=== PATIENT | female | born 1950 | race Caucasian/White ===

== ENCOUNTER 2024-06-24 20:04 | Observation (INO) | payer MEDICARE, SELFPAY ==
--- NOTE | ~2024-06-24 | XR_ITS ---
HISTORY: pain/arthritis; no injury COMPARISON: None TECHNIQUE: 3 views of the right knee were performed. FINDINGS: No acute or subacute fracture. Medial and lateral tibiofemoral joint space narrowing is identified. No suprapatellar joint effusion is identified. The infrapatellar joint space is clear. Fixation hardware within the proximal tibia. Well-corticated density within the expected distribution of the medial collateral ligament. IMPRESSION: Degenerative disease, without acute findings, as detailed above. Reviewed, dictated and finalized at location A.
--- NOTE | ~2024-06-24 | CT_ITS ---
CLINICAL INDICATION: Difficulty with ambulation. COMPARISON: Reference was made to plain film evaluation of the right knee. TECHNIQUE: Computed tomography (CT) of the right knee was performed without intravenous contrast. The dose-length product was 418.51 mGy-cm. FINDINGS/OBSERVATIONS: No acute fracture is appreciated. Significant degenerative disease is redemonstrated with joint space narrowing (medial and lateral tib iofemoral) Screw fixation is identified within the proximal tibia without periprosthetic fracture appreciated. W ell-corticated density within the distribution of the medial collateral ligament is also redemonstrat ed. IMPRESSION: Significant degenerative disease, without acute fracture deformity, as detailed above. Reviewed, dictated and finalized at location A.
--- NOTE | ~2024-06-24 | CT_ITS ---
History: History of CVA Now presents with difficulty with ambulation. PROCEDURE: CT head without contrast. COMPARISON: None TECHNIQUE: Axial imaging of the head performed from the skull base to the vertex without IV contrast. Sagittal a nd coronal reformations obtained. DLP: 605 mGy-cm FINDINGS: Evidence of prior left middle cerebral artery stroke (gliosis and encephalomalacia) with ex vacuo dil atation of the left lateral ventricle. The remainder of the ventricles are otherwise unremarkable in size, shape and position. There is no mass, mass effect or midline shift. There is no abnormal extra-axial fluid collection or intracranial hemorrhage. Visualized paranasal sinuses are clear. The mastoid air cells are well aerated. No acute displaced fractures within the overlying cranium. Impression: No acute intracranial hemorrhage or suspicious mass effect. Reviewed, dictated and finalized at location A. Impression: No acute intracranial hemorrhage or suspicious mass effect.
--- OUTSIDE RECORDS SUMMARY | 2024-06-24 20:07 | XMS_ITS | Clinical Summary ---
Author Organization [facility] Address [address] [address] Care Team Providers Care Personal Assistant Name Role Phone Unavailable Primary Care Provider Unavailabl e Allergies Active Allergy Reactions Criticality Noted Date Comments Lanolin Itching Low 11/26/2020 Penicillins Itching,Rash,Unknown Low 03/15/2011 Reaction: Rash, Sulfa (Sulfonamide Antibiotics) Itching,Rash High 03/15/2011 Reaction: Rash, Sulfur Itching Low 11/26/2020 Medications aspirin (ECOTRIN EC) 81 mg Tablet, Delayed Release (E.C.) Take 1 Tablet (81 mg) by mouth daily. 30 Tablet 2 1 Active simvastatin (ZOCOR) 40 mg tablet TAKE 1 TABLET BY MOUTH EVERY DAY 1 Active cpap medical deviceIndication s:JAN on CPAP New CPAP Setup RESMED CPAP 6-8cm with heated humidity, climateline tubing. Mask fit to comfort All associated CPAP supplies as needed, Please add to Airview. Compliance Download with [facility] in 2 weeks. OLIVE 99 DME Provider Plus Mirage Fx small nasal mask 1 Each 1 Active ketoconazole (NIZORAL) 2 % Shampoo 1 Active phenazopyridine 100 mg tablet 2 Active fluconazole (DIFLUCAN) 150 mg tabletIndication s:Cutaneous candidiasis Take 1 Tablet (150 mg) by mouth every 7 days. 4 Tablet 2 Active Cymbalta 20 mg Capsule, Delayed Release(E.C.)Ind ications:Major depression in remission Take 3 Capsules (60 mg) by mouth daily. 90 Capsule 1 2 Active acetaminophen (TYLENOL) 500 mg tablet Take 3,000 mg by mouth daily. Active baclofen (LIORESAL) 10 mg tablet Take 1 Tablet (10 mg) by mouth 3 times daily. 90 Tablet 2 2 Active clotrimazole-bet amethasone (LOTRISONE) 1-0.05 % CreamIndications :Rash Apply to affected area 2 times daily. 45 Gram 2 Active simvastatin (ZOCOR) 40 mg tablet TAKE 1 TABLET(40 MG) BY MOUTH DAILY 90 Tablet 1 2 Active Cymbalta 20 mg Capsule, Delayed Release(E.C.) Take 1 Capsule (20 mg) by mouth daily. 30 Capsule 2 2 Active Active Problems Patient Care Coordination No te Formatting of this note migh t be different from the original. DME: Provider Plus for CPAP Problem Noted Date Diagnosed Date OAB (overactive bladder) 05/09/2021 Low HDL (under 40) 01/14/2021 Constipation 09/16/2020 Essential hypertension 09/16/2020 Right hemiplegia 09/16/2020 Corneal opacity, central, bilateral 04/15/2020 Overview (09/16/2020): Last Assessment & Plan: Ct care with Dr Pro. Glaucoma suspect of both eyes 04/15/2020 Overview (09/16/2020): Last Assessment & Plan: Order Orozco visual field (HVF) and OCT, Re-eval 6 mos Abnormality of gait due to impairment of balance 01/14/2020 Aphasia following cerebral infarction 11/21/2019 Hemiplegia, dominant side S/ P CVA (cerebrovascular accident) 11/21/2019 Overview (09/16/2020): S/p CVA 2010 History of hemorrhagic cereb rovascular accident (CVA) with residual deficit 10/14/2019 Major depression in remission 10/14/2019 Hyperlipidemia, mixed 10/14/2019 Skin cancer 10/14/2019 S/P vaginal hysterectomy 08/09/2018 Overview (09/16/2020): 09/09/15 total vag hyst with BSO due to complex endometrial hyperplasia History of left mastectomy 01/17/2017 Obstructive sleep apnea syndrome 07/07/2011 Resolved Problems Problem Noted Date Diagnosed Date Resolved Date Prediabetes 09/16/2020 05/11/2021 Depression 07/12/2020 Immunizations Immunization Administration Dates Next Due (PFIZER CHANTELLE)(12 YR UP PRIMA RY SERIES) COVID-19 VACCINE - EMERGENCY USE AUTHORIZATION, MRNA, CHANTELLE(PF) 30 MCG/0.3 ML IM SUSP 04/13/2021 (PFIZER)(12 YR UP) COVID-19 VACCINE - EMERGENCY USE AUTHORIZATION, MRNA, [id number](PF) 30 MCG/0.3 ML IM SUSP 05/10/2020,04/19/2020 (SHINGRIX)(50 YRS UP) ZOSTER VACCINE RECOMBINANT, 0.5 ML, IM 01/23/2020 INFLUENZA VACCINE HIGH DOSE QUADRIVALENT 65 YR UP PF IM 01/13/2021 INFLUENZA VACCINE QUADRIVALENT 6 MOS UP PF IM Influenza Vaccine High Dose 65+ Yrs IM 9 Influenza Vaccine Tri Adjuvanted 65+ PF IM 01/04 Skin Test TB 07/12/2020 Family History Medical History Relation Name Comments Unknown Brother Unknown Father Unknown Mother Unknown Sister Relation Name Status Comments Brother Father Mother Sister Social History Tobacco Use Types Packs/Day Years Used Date Smoking Tobacco: Never Smokeless Tobacco: Never Tobacco Cessation:Counseling Given: No Alcohol Use Standard Drinks/Week Comments Not Currently 0 (1 standard drink = 0.6 oz pur e alcohol) Comments No Sex and Gender Information Value Date Recorded Sex Assigned at Not on file Legal Sex Female 3:32 AM COMPTROLLER Gender Identity Not on file Sexual Orientation Not on file Last Filed Vital Signs Vital Sign Reading Time Taken Comments Blood Pressure 130/70 08/08/2021 1:45 PM CDT Pulse 68 08/08/2021 1:45 PM CDT Temperature 36.8 C (98.2 F) 08/08/2021 1:45 PM CDT Respiratory Rate 18 08/08/2021 1:45 PM CDT Oxygen Saturation 95% 08/08/2021 1:45 PM CDT Inhaled Oxygen Concentration - - Weight 113.4 kg (250 lb) 08/08/2021 1:50 PM CDT Height 170.2 cm (5' 7 ) 08/08/2021 1:50 PM CDT Body Mass Index 39.16 08/08/2021 1:50 PM CDT Plan of Treatment Health Maintenance Due Date Last Done Comments DIABETES ANNUAL FOOT EXAM 10/02/1969 DTAP/TDAP/TD VACCINES (1 - Tdap) 10/02/1970 COLORECTAL SCREENING 10/02/1996 FIT/FOBT Q 1 year 10/02/1996 Flex Sig/CT Colonography Q 5 years 10/02/1996 RSV VACCINE (60+ or ) (1 - Risk 60-74 years 1-dose series) 2011 DIABETES ANNUAL RETINAL EXAM 07/21/2021, 06/14/2020, 06/14/2020, Additional history exists DIABETES HBA1C Q 6 MONTHS 11/06/20212021, 01/13/2021, 09/16/2020 BREAST CANCER SCREENING 11/19/2021 11/20/19 21, 12/11/2019 (Previously completed), 09/02/2019, Additional history exists LDL CHOLESTEROL ANNUAL 01/13/2022 01/13/2021, 2020 DIABETES MICROALBUMIN ANNUAL SCREEN 05/09/2022 05/09/2021, 01/17/2021, 09/16/2020 Colorectal Cancer Screening 06/01/2023 FIT-DNA Q 3 years 06/01/2023 05/31/2020 INFLUENZA VACCINE (#1) 2023 , 01/05/2020, 01/09/2019, Additional history exists COVID-19 Vaccine (2023-2 5 season) 2023 04/13/2021, 05/10/2020, 04/19/2020 PNEUMOCOCCAL VACCINE 50+ YEARS Completed 0 04/22/2019 (Previously completed) ZOSTER VACCINE Completed 03/30/2020 (Prev iously completed), 02/03/2020 (Previously completed), 01/23/2020 OSTEOPOROSIS SCREENING Completed 06/20/2021 Procedures Procedure Name Priority Date/Time Associated Diagnosis Comments XR DEXA BONE DENSITY AXIAL 1 OR MORE SITES Routine 06/20/2021 1:05 PM CDT Menopause POC MICROALB/CREAT RATIO URINE QUANT Routine 05/09/2021 11:22 AM COMPTROLLER Prediabetes POC HEMOGLOBIN A1C Routine 05/09/2021 10 :12 AM COMPTROLLER Prediabetes LIPID PANEL Routine 01/13/2021 11:05 AM CDT Type 2 diabetes mellitus without complication, without long-term current use of insulin ([facility]) Routine general medical examination at a [facility] MAMMO DIAGNOSTIC UNI RIGHT W OR WO CAD Routine 11/19/2020 9:31 AM CDT Lump of right breast Other signs and symptoms in breast HM DIABETES EYE EXAM Routine 06/14/2020 COLON CANCER SCREEN, STOOL DNA Routine 05/31/2020 12:00 AM COMPTROLLER Screening for colon cancer from Last 3 Months or Most Recently Relevant to Health Maintenance Results * XR DEXA BONE DENSITY AXIAL 1 OR MORE SITES (06/20/2021 1:05 PM CDT) Anatomical Region Laterality Modality Computed Radiogr aphy 06/20/2021 1:05 PM CDT Narrative 06/20/2021 1:27 PM CDT SUMMARY DEXA REPORT DATE: 06/20/2021 1:05 PM INDICATION: Postmenopausal FINDINGS: Osteoporosis with lowest T score -2.8. Fracture risk is high. Please refer to the full report available in [facility] under the PACS Images tab. If a faxed copy is needed, please call [phone]. DICTATION LOCATION: [facility] Procedure Note Kaelyn Heath MD - 06/20/2021 SUMMARY DEXA REPORT DATE: 06/20/2021 1:05 PM INDICATION: Postmenopausal FINDINGS: Osteoporosis with lowest T score -2.8. Fracture risk is high. Please refer to the full report available in [facility] under the PACS Images tab. If a faxed copy is needed, please call [phone]. [facility]ATION [facility]ATION: [facility] DIAGNO[facility]IC [facility] ORD ERABLES Final Result * POC MICROALB/CREAT RATIO URINE QUANT (05/09/2021 11:22 AM COMPTROLLER) MICROALBUMIN, URINE POC 10.0 5.0 - 300.0 mg/L [facility] CREATININE, URINE POC 100.0 15.0 - 500.0 mg/dL [facility] MICROALBUMIN/CR EAT RATIO, URINE POC 30.0 1.0 - 2,000.0 mg/g [facility] Urine 05/09/2021 11:[address] [facility] POINT OF CARE TESTING Final Result [facility] [id number] [place] [address] * (ABNORMAL) POC HEMOGLOBIN A1C (05/09/2021 10:12 AM COMPTROLLER) HGB A1C POC 6.4(A) <=5.7 % [facility] Blood, whole 05/09/2021 10:[address] [facility] POINT OF CARE TESTING Final Result [facility] CLIA# [id number] [place] [address] * (ABNORMAL) LIPID PANEL (01/13/2021 11:05 AM CDT) CHOLESTEROL 134 <200 mg/dL [facility] HDL 36(L) > OR = 50 mg/dL [facility] TRIGLYCERIDE 231(H) <150 mg/dL [facility] Comment: If a non-fasting specimen was collected, consider repeat triglyceride testing on a fasting specimen if clinically indicated. Cristal et al. J. of Clin. Lipidol. 2015;9:129-169. LDL CALCULATED 69 mg/dL (calc) [facility] Comment: Reference range: <100 Desirable range <100 mg/dL for primary prevention; <70 mg/dL for patients with CHD or diabetic patients with > or = 2 CHD risk factors. LDL-C is now calculated using the Leon-Escalera calculation, which is a validated novel method providing better accuracy than the Friedewald equation in the estimation of LDL-C. Leon SS et al. NEMO. 2013;310(19): 8621-9540 (http://education.[employer]/faq/QGL826) CHOL/HDL RATIO 3.7 <5.0 (calc) [facility] TOTAL NON-HDL CHOL(LDL+VLDL) 98 <130 mg/dL (calc) [facility] Comment: For patients with diabetes plus 1 major ASCVD risk factor, treating to a non-HDL-C goal of <100 mg/dL (LDL-C of <70 mg/dL) is considered a therapeutic option. Test Performed at: [facility] [address] [place] [address] Twan Goodwin D.O., MPH Blood 01/13/2021 11:0 5 AM CDT 01/13/2021 11:06 AM CDT Milton Aguirre DO CHEMISTRY ORDERABLES F inal Result [facility] [address] [place] [address] * MAMMO DIAGNOSTIC UNI RIGHT W OR WO CAD (11/19/2020 9:31 AM CDT) Anatomical Region Laterality Modality Breast Right Mammography 11/19/2020 9:32 AM CDT Addenda Addendum by Sheila Mckeon MD on 12/01/2020 3:49 PM CDT Comparison is now made with previous films from [facility] dated 09/02/2019 through 07/04/2016. There are no significant interval changes. Recommend annual follow-up. OVERALL FINAL ASSESSMENT: BI-RADS CATEGORY 1: Negative. Narrative 11/19/2020 11:08 AM CDT EXAM: UNILATERAL RIGHT DIAGNOSTIC MAMMOGRAM WITH CAD AND UNILATERAL RIGHT BREAST ULTRASOUND LIMITED 11/19/2020 INDICATION: Palpable lump right breast. History of prior left mastectomy. COMPARISON STUDIES: Prior mammograms are not available but have been performed in [place]. Request has been made to get the prior studies and when available an addendum will be made. PARENCHYMAL COMPOSITION: Heterogeneously dense. Right breast ultrasound shows no mass, cyst or abnormal duct. Only normal tissues are seen. The axilla was scanned and shows some normal lymph nodes. OVERALL FINAL ASSESSMENT: BI-RADS CATEGORY 0: Incomplete: Needs prior mammograms for comparison. DICTATION LOCATION: [facility] Procedure Note Levi Nolasco MD / Sheila Mckeon MD - 11/19/2020 EXAM: UNILATERAL RIGHT DIAGNOSTIC MAMMOGRAM WITH CAD AND UNILATERAL RIGHT BREAST ULTRASOUND LIMITED 11/19/2020 INDICATION: Palpable lump right breast. History of prior left mastectomy. COMPARISON STUDIES: Prior mammograms are not available but have been performed in [place]. Request has been made to get the prior studies and when available an addendum will be made. PARENCHYMAL COMPOSITION: Heterogeneously dense. Right breast ultrasound shows no mass, cyst or abnormal duct. Only normal tissues are seen. The axilla was scanned and shows some normal lymph nodes. OVERALL FINAL ASSESSMENT: BI-RADS CATEGORY 0: Incomplete: Needs prior mammograms for comparison. DICTATION LOCATION: [facility] us Milton Aguirre DO MAMMO ORDERABLES Edite d Result - Final * DIABETES EYE EXAM (06/14/2020) us Cortes Miller MD HEALTH MAINTENANCE Jessika sutton Result [facility]# [id number] [address] [place] [id number] * COLON CANCER SCREEN, STOOL DNA (05/31/2020 12:00 AM COMPTROLLER) COLOGUARD RESULT Negative Not Applicable [facility] Comment: A negative result indicates a low likelihood that a colorectal cancer (CRC) or an advanced adenoma (adenomatous polyps with more advanced pre-malignant features) is present. The chance that a person with a negative Cologuard test has a colorectal cancer is less than 1 in 1500 (negative predictive value >99.9%) or has an advanced adenoma is less than 5.3% (negative predictive value 94.7%). These data are based on a prospective cross-sectional screening study of 10,000 individuals at average risk for colorectal cancer who were screened with both Cologuard and colonoscopy. (Soraida Aguirre et al, N Engl J Med 2014;370(14):4404-1999) The normal value (reference range) for this assay is negative. COLOGUARD RE-SCREENING RECOMMENDATION: Periodic routine colorectal cancer screening is an important part of preventive healthcare for asymptomatic persons at average risk for colorectal cancer. Following a negative Cologuard result, the [place] [employer] Society and U.S. Multi-Society Task Force screening guidelines recommend a Cologuard re-screening interval of 3 years. References: [place] [employer] Society (ACS). Colorectal cancer prevention and early detection. [place], [place]: [place] [employer]; [updated 2015Jul 17]. https://www.cancer.org/cancer/uycgu-pkyhan-ianapr/gxowwkcds-apkbcqitz-nenklpb/ac s-rec ommendations.html. Accessed November 23, 2017; Jasen DK, Keena SANCHEZ, Mona SewellK, Colorectal Cancer Screening: Recommendations for Physicians and Patients from the U.S. Multi-Society Task Force on Colorectal Cancer Screening, Am J Gastroenterology 2017; 112:1666-4881. TEST TYPE: Composite algorithmic analysis of stool DNA-biomarkers with hemoglobin immunoassay. Quantitative values of individual biomarkers are not reportable and are not associated with individual biomarker result reference ranges. PRECAUTIONS AND LIMITATIONS: Cologuard is intended for colorectal cancer screening of adults of either sex, 45 years or older, who are at average-risk for colorectal cancer (CRC). Cologuard has been approved for use by the U.S. FDA. Cologuard may produce a false negative or false positive result. A negative Cologuard test result does not guarantee the absence of CRC or advanced adenoma (pre-cancer). Patients with a negative Cologuard test result should be advised to continue participating in a colorectal cancer screening program. The screening interval for Cologuard is currently recommended at an interval of every 3 years by the [place] [employer] Society and U.S. Multi-Society Task Force. A false positive result occurs when Cologuard produces a positive result, even though a colonoscopy may not find colorectal cancer or precancerous polyps. The performance of Cologuard has been established in a cross sectional study (i.e., single point in time) of average-risk adults aged 50-84. Cologuard performance in patients ages 45 to 49 years was estimated by sub-group analysis of near-age groups. Cologuard performance data in a 10,000 patient pivotal study using colonoscopy as the reference method can be accessed at the following location: www.[employer]/results. Additional description of the Cologuard test process, warnings and precautions can be found at www.cologuardtest.com. Rx only. Stool STOOL SPECIMEN / Unknown 05/31/2020 06/02/2020 4:47 PM COMPTROLLER Sreekanth lFood MD BODY FLUIDS AND STOOLS Edited Result - Final [facility] [place] # [id number] [address] [place] [address] from Last 3 Months or Most Recently Relevant to Health Maintenance Insurance [facility] [place] [id number] [place] [facility] DUAL COMPLETE [facility]
--- OUTSIDE RECORDS SUMMARY | 2024-06-24 20:07 | XMS_ITS | Clinical Summary ---
Author Organization [facility] Address [address] [place] [address] Care Team Providers Care Breaker Engineer Name Role Phone Dequan Uribe MD Primary Care Provider [phone] Source Comments [facility],non-owned Affiliates and Associated Physician Practices is amultiple site organization consisting of ambulatory clinics and hospital sitesin [place], [place], [place] and [place]. This disclosure is being madepursuant to the Care Everywhere program and may not contain all information available regarding this patient. Last updated 17.[facility] Allergies No known active allergies Social History Tobacco Use Types Packs/Day Years Used Date Smoking Tobacco: Never Assessed Sex and Gender Information Value Date Recorded Sex Assigned at Not on file Gender Identity Not on file Sexual Orientation Not on file Plan of Treatment Health Maintenance Due Date Last Done Comments BONE DENSITY TESTING 1950 COLOGUARD (AGES 45-75) - COL ON CA SCREENING 1950 COLON MONITORING 1950 COLONOSCOPY - COLON CA SCREENING 1950 CT COLONOGRAPHY - COLON CA SCREENING 1950 Colorectal Cancer Screening 1950 FIT - COLON CA SCREENING 1950 FLEX SIG - COLON CA SCREENING 1950 LIPID TESTING 1950 MAMMOGRAM 1950 HEPATITIS C SCREENING 09/28/1969 DTAP/TDAP/TD VACCINES (1 - Tdap) 10/02/1970 PNEUMOCOCCAL VACCINE 50+ (1 of 1 - PCV) 10/02/2001 ZOSTER VACCINE (1 of 2) 10/02/2001 COVID-19 VACCINE ( - 2023-2 5 season) 2023 DEPRESSION SCREENING 03/26/2024 INFLUENZA VACCINE (Season Ended) 2024 Respiratory Syncytial Virus (RSV) Vaccine Pt: or over 60 yrs (1 - 1-dose 75+ series) 10/02/2026 HEPATITIS B VACCINE Aged Out No longe r eligible based on patient's age to complete this topic HIB VACCINE Aged Out No longer eligi ble based on patient's age to complete this topic HPV VACCINE Aged Out No longer eligi ble based on patient's age to complete this topic MENINGOCOCCAL (Group B) VACC INE SHARED DECISION-MAKING Aged Out No longer eligibl e based on patient's age to complete this topic MENINGOCOCCAL GROUPS A/C/Y/W VACCINE Aged Out No longer eligible b ased on patient's age to complete this topic Care Teams Breaker Engineer Relationship Specialty Start Date End Date Dequan Uribe MD [address], [address] PCP - General 11/21/07
--- OUTSIDE RECORDS SUMMARY | 2024-06-24 20:07 | XMS_ITS | Encounter Summary ---
Author Organization [facility] Address [address] [place] [address] Care Team Providers Care Washroom Cleaner Name Role Phone Milton Aguirre DO Primary Care Provider Encounter Details Date Type Department Care Team (Latest Contact Info) Description 03/16/2006 Outpatient Historical [facility] Ubaldo Henriquez MD [address] [address] Postmenopausal Bleeding (Primary Dx) Social History Tobacco Use Types Packs/Day Years Used Date Smoking Tobacco: Never Assessed Comments Unknown Sex and Gender Information Value Date Recorded Sex Assigned at Not on file Legal Sex Female 3:32 AM CIGAR PACKER AND SORTER Gender Identity Not on file Sexual Orientation Not on file documented as of this encounter Plan of Treatment Not on file documented as of this encounter Procedures Procedure Name Priority Date/Time Associated Diagnosis Comments POC , URINE Routine 03/16/2006 9:30 AM CIGAR PACKER AND SORTER HEMOGLOBIN AND HEMATOCRIT Routine 03/13/2006 11:25 AM CIGAR PACKER AND SORTER documented in this encounter Results * POC , URINE (03/16/2006 9:30 AM CIGAR PACKER AND SORTER) , URINE POC Negative Negative INTERFACE SYSTEM 03/16/2006 9:30 AM CIGAR PACKER AND SORTER us Ubaldo Henriquez MD POINT OF CARE TESTING Final Anisa laguerre INTERFACE SYSTEM Refer to clinic/hospital department * (ABNORMAL) HEMOGLOBIN AND HEMATOCRIT (03/13/2006 11:25 AM CIGAR PACKER AND SORTER) HEMOGLOBIN 14.8 11.8 - 14.8 g/dL INTERFACE SYSTEM HEMATOCRIT 44.8(H) 35.5 - 44.0 % INTERFACE SYSTEM 03/13/2006 11:2 5 AM CIGAR PACKER AND SORTER Ubaldo Henriquez MD HEMATOLOGY ORDERABLES Final R esult INTERFACE SYSTEM Refer to clinic/hospital department documented in this encounter Visit Diagnoses Diagnosis Postmenopausal bleeding- Primary documented in this encounter Care Teams Washroom Cleaner Relationship Specialty [place] [address] [address] [facility] [address] [place] [address] PCP - General Internal Medicine 06/01/21 02/14/22 documented as of this encounter
--- OUTSIDE RECORDS SUMMARY | 2024-06-24 20:07 | XMS_ITS | Encounter Summary ---
Author Organization [employer] Address [address] [place] [address] Care Team Providers Care Cell Preparer Name Role Phone Milton Aguirre DO Primary Care Provider Encounter Details Date Type Department Care Team (Late st Contact Info) Description 03/21/2002 Outpatient Historical [facility] Raz Crowe MD NO ADDRESS ON FILE RECTAL & ANAL HEMORRHAGE (Primary Dx) Social History Tobacco Use Types Packs/Day Years Used Date Smoking Tobacco: Never Assessed Comments Unknown Sex and Gender Information Value Date Recorded Sex Assigned at Not on file Legal Sex Female 3:32 AM SUPERINTENDENT [employer] Gender Identity Not on file Sexual Orientation Not on file documented as of this encounter Plan of Treatment Not on file documented as of this encounter Visit Diagnoses Diagnosis Hemorrhage of rectum and anus- Primary documented in this encounter Care Teams Cell Preparer Relationship Specialty [place] [address] [address] [facility] [address] [place] [address] PCP - General Internal Medicine 06/01/21 02/14/22 documented as of this encounter
--- OUTSIDE RECORDS SUMMARY | 2024-06-24 20:07 | XMS_ITS ---
Author Organization [facility] Address [address] [facility] [address] [place] [address] Care Team Providers Care Meat Soaker Name Role Phone Ubaldo Pretty Primary Care Provider [phone] Rossana Navarro Unavailable [phone] Allergies Allergen (clinical drug ingredient) Drug/Non Drug Allergy documented on EMR Reaction Allergy Type Onset Date Status Penicillin Other Drug Allergy Active Substance with sulfonamide structure and antibacterial mechanism of action (substance) Sulfa Antibiotics Unknown Drug Allergy Active Reason For Referral Reason 73 yo female with co nfirmed tricompartmental OA of bilateral knee would like to be evaluated for knee replacement,. Diagnosis 1 Tricompartment osteo arthritis of both knees (M17.0) Referral Organization [facility] Referring Provider First Name Rossana Referring Provider Last Name Melanie Referring Provider Speciality Family Med icine Referred Provider undefined Referred Provider Specialty Orthopedic S urgery - Hip & Knee General Notes Ubaldo Pretty 04:54:37 PM >[facility] - referral ID [id number], Target specialist:, Specialty: Orthopedic Surgery - Hip & Knee, Referral information:, Start date: 2024-06-24, End date: 2025-06-24, Number of visits: 3, Diagnosis: , code: M17.0 description: Tricompartment osteoarthritis of both knees, Reason: 73 yo female with confirmed tricompartmental OA of bilateral knee would like to be evaluated for knee replacement,. , Urgency: Routine, Clinical algorithm:, Question: Has the patient with chronic hip or knee pain and evidence of degenerative joint disease had an adequate trial of physical therapy alone or in combination with other conservative measures (Table)? An adequate duration of conservative therapy is at least 6 weeks. Table. Examples of conservative measures Physical therapy plus one or more of the following: Cognitive-behavioral therapy for pain coping or psychological symptoms NSAIDs (Avoid opioids) Exercise: core strengthening, walking, helga chi, stationary cycling, yoga, aquatic exercise Weight management (goal of loss of >=7.5percent of body weight if overweight or obese) Assistive walking device, Response: Yes, Question: Have conservative treatments improved function and/or pain?, Response: No, Question: Mitigate surgical risk factors where present. Consider specialty referral (e.g., physiatry, obesity clinic/bariatric surgery). Consider surgery referral to evaluate surgical candidacy. Referral Priority Routine REASON FOR VISIT Knee injection evaluation Bilateral, Member has had recent b/l xr of knees dated 06/09/2024 Medications Medication SIG (Take, Route, Frequency, Duration) Notes Start Date End Date Status Xarelto 20 MG 1 tablet with food Orally Once a day for 90 days Active Solifenacin Succinate 5 MG 1 tablet Oral ly Once a day for 90 days Active Brimonidine Tartrate-Timolol 0.2-0.5 % 1 drop into affected eye Ophthalmic once a day Active Alendronate Sodium 70 MG 1 tablet 30 min utes before the first food, beverage or medicine of the day with plain water Orally once a week for 30 days 04/23/2024 Not-Taking Acetaminophen 500 MG 2 cap Orally three times daily Active Baclofen 10 MG 1 tablet as needed Orally Twice a day for 90 days As needed for spasms Active Prevagen 10 MG as directed Orally Active Cymbalta 60 MG 1 capsule Orally Onc e a day for 90 days Active Simvastatin 40 MG 1 tablet in the evening Orally Once a day for 90 days Active Problems Problem Type SNOMED Code ICD Code Onset Dates Problem Status W/U Status Risk Notes Problem Osteoarthritis of knee (256873260) Tricompartment osteoarthritis of both knees (M17.0) Active confirmed Problem Shoulder joint pain (121223901) Right shoulder pain, unspecified chronicity (M25.511) Active confirmed Vital Signs Temperature 98.3 degrees Fahrenheit 06/25/19 25 Heart Rate 78 /min 06/24/2024 Blood pressure systolic 126 mm Hg 06/25/19 25 Blood pressure diastolic 70 mm Hg 025 Oximetry 98 % 06/24/2024 Height 68 in 06/24/2024 Weight 249 lbs 06/24/2024 BMI 37.86 kg/m2 06/24/2024 Encounters Encounter Location Date Provider Diagnosis [address] [address] 06/24/2024 Ubaldo Pretty Right shoulder pain, unspecified chronicity M25.511 and Tricompartment osteoarthritis of both knees M17.0 Assessments Encounter Date Diagnosis (ICD Code) Assessment Notes Treatment Notes Treatment Clinical Notes Section Notes 06/24/2024 Right shoulder pain, unspecified chronicity (ICD-10 - M25.511) XRay ordered to assist in facilitating next visit 06/24/2024 Tricompartment osteoarthritis of both knees (ICD-10 - M17.0) Pt with no interest in injections, will place ortho referral to assist in care 06/24/2024 Other A total of 27 minutes was spent on this visit reviewing previous notes, counseling the patient, managing orders, reviewing medications, and documenting findings in the progress note. Plan Of Treatment Pending Test Test Name Order Date X-Ray: Shoulder RT 3 Views 06/24/2024 Referrals Referral Date Details 06/24/2024 06/24/2024, 73 yo fe male with confirmed tricompartmental OA of bilateral knee would like to be evaluated for knee replacement,. Next Appt Details Follow Up: prn, Reason: Provider Name:Rossana Yong waddell, 07/09/2024 01:00:00 PM, [address] [place] [address], [id number], Progress Notes * Nidhi BENOITOB:1950 ([age] yo F)Acc No.[id number]:06/24/2024 Patient: Marjorie JIMENEZ Kristen Provider: Janine Pretty MD :1950 A ge:73 Y S ex:Female Date:06/24/2024 [facility] [facility] Subjective: * Chief Complaints: * 1 . Knee injection evaluation Bilateral. 2. Member has had recent b/l xr of knees dated 06/09/2024. * HPI: . ..: 73-year-old female with confirmed tricompartmental osteoarthritis here for an evaluation for Gelsyn versus steroid -Patient almost immediately states she does not want any injections she just wants to see Ortho for knee replacement -Long discussion with patient and family member regarding risks and benefits of steroids as well as Gelsyn injections as well as pathophysiology of tricompartmental osteoarthritis. Patient states she is not comfortable having things injected into her knees. Patient also states has already had prior procedure into right knee -Patient requesting Ortho referral -At end of visit patient also stating been having right shoulder pain ever since she has had a stroke. States he not have good physical therapy but would like to have imaging of her shoulder to make sure it is not a bony abnormality. Patient has close follow-up with nurse practitioner Ashley will obtain x-ray to help facilitate care. Patient to follow-up at next appointment with primary care team. * ROS: D enies chest pain, shortness of breath. * Medical History: C erebrovascular accident 2010, Skin cancer basal cell carcinoma removed, US 2010 Showed endometrial thickening, Breast cancer T1N0 invasive lobular cancer, Esophagitis on endoscopy in the past. * Medications: T aking Acetaminophen 500 MG Capsule 2 cap Orally three times daily , Taking Prevagen 10 MG Capsule as directed Orally , Taking Cymbalta 60 MG Capsule Delayed Release Particles 1 capsule Orally Once a day , Taking Simvastatin 40 MG Tablet 1 tablet in the evening Orally Once a day , Taking Baclofen 10 MG Tablet 1 tablet as needed Orally Twice a day As needed for spasms, Taking Xarelto 20 MG Tablet 1 tablet with food Orally Once a day , Taking Brimonidine Tartrate-Timolol 0.2-0.5 % Solution 1 drop into affected eye Ophthalmic once a day , Taking Solifenacin Succinate 5 MG Tablet 1 tablet Orally Once a day , Not-Taking Alendronate Sodium 70 MG Tablet 1 tablet 30 minutes before the first food, beverage or medicine of the day with plain water Orally once a week , Medication List reviewed and reconciled with the patient * Allergies: P enicillin: Other, Sulfa Antibiotics. Objective: * Vitals: H ospitalization within last 30 days: no, Temp:98.3F, HR:78/min, BP:126/70mm Hg, Oxygen sat %:98%, Ht: 68 in, Wt:249lbs, BMI:37.86Index, Weight Change: -2 lbs, Weight Change %: -0.8%, Pain scale:5. * Examination: G ENERAL APPEARANCE: Patient appears: A lert awake and oriented. ? M USCULOSKELETAL: P t declines knee exam. Assessment: * Assessment: 1. R ight shoulder pain, unspecified chronicity - M25.511 (Primary) 2 . T ricompartment osteoarthritis of both knees - M17.0 Plan: * Treatment: 2. T ricompartment osteoarthritis of both knees Clinical Notes: Pt with no interest in injections, will place ortho referral to assist in care Referral To:undefined Orthopedic Surgery - Hip & Knee Reason:73 yo female with confirmed tricompartmental OA of bilateral knee would like to be evaluated for knee replacement,. 3. O thers Clinical Notes: A total of 27 minutes was spent on this visit reviewing previous notes, counseling the patient, managing orders, reviewing medications, and documenting findings in the progress note.? * Follow Up: p rn * Billing Information: * Visit Code: 95081 Office Visit- Est Pt.- Level 2. * Procedure Codes: * Electronic signature of Cristo Pretty MD on 06/24/2024 at 08:07 PM CDT Sign off status: Pending * Provider: Janine Pretty MD Date: 0 06/24/2024 Generated for Paulo floyd/William/Kittyitting on: 0 06/24/2024 08:07 PM CDT History and Physical Notes * HPI (History of Present Illness) Category Sub-Category Detail Notes Category Not es ... 73-year-old female with confirmed tricompartmental osteoarthritis here for an evaluation for Gelsyn versus steroid -Patient almost immediately states she does not want any injections she just wants to see Ortho for knee replacement -Long discussion with patient and family member regarding risks and benefits of steroids as well as Gelsyn injections as well as pathophysiology of tricompartmental osteoarthritis. Patient states she is not comfortable having things injected into her knees. Patient also states has already had prior procedure into right knee -Patient requesting Ortho referral -At end of visit patient also stating been having right shoulder pain ever since she has had a stroke. States he not have good physical therapy but would like to have imaging of her shoulder to make sure it is not a bony abnormality. Patient has close follow-up with nurse practitioner Ashley will obtain x-ray to help facilitate care. Patient to follow-up at next appointment with primary care team Examination Category Sub-Category Detail Notes Category Not es GENERAL APPEARANCE Patient appears: Alert awake and or iented MUSCULOSKELETAL Pt declines knee exam Consultation Request Notes Referral Date Referring Provider Referred Provider Not es 06/24/2024 Rossana Navarro , undefined 73 yo fema le with confirmed tricompartmental OA of bilateral knee would like to be evaluated for knee replacement,.
--- OUTSIDE RECORDS SUMMARY | 2024-06-24 20:07 | XMS_ITS | Encounter Summary ---
Author Organization [facility] Healthcare Address [address] [place] [address] Care Team Providers Care Wheat Grower Name Role Phone Sreekanth Flood MD Primary Care Provider [phone] Kalee Slaughter OT Unavailable Unavailable Chhaya Hernandez OT Unavailable UnavailKim Hatch EIGHT ARM OPERATOR Unavailable UnavailJenny Glez OT Unavailable Noemí Deal OT Unavailable UnavailRossana Ni OT Unavailable Unavailable Rossana Navarro PAPERHANGER APPRENTICE Primary Care Pro vider Encounter Details Date Type Department Care Team (Late st Contact Info) Description 06/03/2021 Documentation [facility] Speech Therapy [address] [place] [address] Kim Carmen, LAVELL Social History Tobacco Use Types Packs/Day Years Used Date Smoking Tobacco: Never Alcohol Use Standard Drinks/Week Comments Not Currently 0 (1 standard drink = 0.6 oz pur e alcohol) AUDIT-C Answer Date Recorded Q1: How often do you have a drink containing alc ohol? 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 Gender Identity Not on file Sexual Orientation Not on file Occupation Industry Job Start Date Job End Date Self employed Not on file Not on file Not on file documented as of this encounter Plan of Treatment Not on file documented as of this encounter Visit Diagnoses Not on filedocumented in this encounter Care Teams Wheat Grower Relationship Specialty [place] [id number] [address] PCP - General Internal Medicine 11/13/19 04/08/24 Rossana Navarro NP [address] [place] [address] PCP - General Nurse Practitioner 04/09/24 Kalee Slaughter, OT Occupational Therapist Occupational Therapy 12/23/19 Chhaya Hernandez, OT Occupational Therapist Occupational Therapy 12/31/19 Kim Carmen SLP Speech Language Pathologist Speech Therapy 12/31/19 Jenny Rice, OT Occupational Therapist Occupational Therapy 01/13/20 Noemí Francis, OT Occupational Therapist Occupational Therapy 01/16/20 Rossana Reid OT Occupational Therapist Occupational Therapy 01/22/20 documented as of this encounter
--- OUTSIDE RECORDS SUMMARY | 2024-06-24 20:07 | XMS_ITS | Clinical Summary ---
Author Organization [facility] [place] [address] [place] [address] Care Team Providers Care Chief Lock Operator Name Role Phone Unavailable Primary Care Provider Unavailabl e Allergies Active Allergy Reactions Criticality Noted Date Comments Banana 12/08/2020 Chicken Flavor Unknown 12/08/2020 [place] 12/08/2020 Lanolin Itching,Unknown Medium 07/19/2018 Latex Itching Low 12/08/2020 Penicillins Itching,Rash,Unknown Low 03/15/2011 Reaction: Rash, Reaction: Rash, Sulfa (Sulfonamide Antibiotics) Itching,Rash,Unknown High 03/15/2011 Reaction: Rash, Reaction: Rash, Wheat Flour Unknown 12/08/2020 Yeast, Dried Unknown 12/08/2020 Medications aspirin 81 mg tablet Take 81 mg by mouth 1 (one) time each day. 08/04/19 21 Active baclofen (LIORESAL) 10 mg tablet Take 1 tablet by mouth 3 (three) times a day. 12/16/19 20 Active DULoxetine (Cymbalta) [address] capsule Take 60 mg by mouth 1 (one) time each day. 06/02/19 21 Active incobotulinumtoxin A (XEOMIN) 100 Units recon soln Inject into the shoulder, thigh, or buttocks every 3 months. 09/23/19 21 Active simvastatin (ZOCOR) 40 mg tablet simvastatin 40 mg tablet TAKE 1 TABLET BY MOUTH EVERY DAY 11/26/19 21 Active varicella-zoster gE-AS01B, PF, (Shingrix, PF,) 50 mcg/0.5 mL suspension for reconstitution Shingrix (PF) 50 mcg/0.5 mL intramuscular suspension, kit ADMINISTER 0.5ML IN THE MUSCLE DIRECTED Active Active Problems Problem Noted Date Diagnosed Date Constipation 09/16/2020 Diabetes mellitus 09/16/2020 Essential hypertension 09/16/2020 Right hemiplegia 09/16/2020 Overview (12/08/2020): S/p CVA 2010 Corneal opacity, central, bilateral 04/15/2020 Overview (12/08/2020): Last Assessment & Plan: Ct care with Dr Pro. Last Assessment & Plan: Ct care with Dr Pro. Glaucoma suspect of both eyes 04/15/2020 Overview (12/08/2020): Last Assessment & Plan: Order Orozco visual field (HVF) and OCT, Re-eval 6 mos Last Assessment & Plan: Order Orozco visual field (HVF) and OCT, Re-eval 6 mos Pseudophakia of both eyes 04/15/2020 Overview (12/08/2020): Last Assessment & Plan: Stable. Monitor. Subjective vision disturbance, bilateral 021 Overview (12/08/2020): Last Assessment & Plan: Ct care with Dr Pro and Dr Ramírez. Abnormality of gait due to impairment of balance 01/14/2020 Muscle spasticity 01/14/2020 Overview (12/08/2020): Last Assessment & Plan: The patient has spastic hemiplegia due to stroke which has responded well to botox injections previously but not at the last round of injections. The benefit of injections has now decreased, and it is reasonable to repeat botox injections at this time. The risks and benefits of botox injections were discussed with the patient and they wish to proceed. A procedure consent was signed. Medications Given: Botulinum toxin injected, quantities listed below. Botulinum toxin (Xeomin) was injected into the following muscles using EMG guidance: Medications Given: 270 U (amount wasted: 30U) injected with EMG guidance into the following muscles using a 1 ml dilution: 40U Biceps Brachii (right) 40U Brachioradialis (right) 40U Flexor Carpi Radialis (right) 40U Flexor Carpi Ulnaris (right) 80U Flexor Digitorum Superficialis (right) 20U Pronator Teres (right) 10U Adductor policis (right) Right arm weakness 01/14/2020 Aphasia following cerebral infarction 11/21/2019 History of hemorrhagic cereb rovascular accident (CVA) with residual deficit 10/14/2019 Hyperlipidemia, mixed 10/14/2019 Major depression in remission 10/14/2019 Skin cancer 10/14/2019 S/P vaginal hysterectomy 08/09/2018 Overview (12/08/2020): 09/09/15 total vag hyst with BSO due to complex endometrial hyperplasia 09/09/15 total vag hyst with BSO due to complex endometrial hyperplasia History of left mastectomy 01/17/2017 Obstructive sleep apnea syndrome 07/07/2011 Social History Tobacco Use Types Packs/Day Years Used Date Smoking Tobacco: Never Assessed Comments Unknown Sex and Gender Information Value Date Recorded Sex Assigned at Not on file Legal Sex Female 3:05 PM PDT Gender Identity Other 12/07/2020 2:31 PM PDT Sexual Orientation Not on file Plan of Treatment Health Maintenance Due Date Last Done Comments Meningococcal B Vaccine Aged Out No l onger eligible based on patient's age to complete this topic
--- OUTSIDE RECORDS SUMMARY | 2024-06-24 20:07 | XMS_ITS | Clinical Summary ---
Author Organization [facility] Address [address] [place] [address] Care Team Providers Care Wire Products Inspector Name Role Phone Kalee Slaughter OT Unavailable Unavailable Chhaya Hernandez OT Unavailable UnavailKim Hatch SNUFF GRINDER Unavailable UnavailJenny Glez OT Unavailable Noemí Deal OT Unavailable UnavailRossana Ni OT Unavailable Unavailable Rossana Navarro MARKING CLERK Primary Care Pro vider Allergies Active Allergy Reactions Criticality Noted Date Comments Banana Lanolin Unknown,Itching Low Latex Itching Low Penicillins Rash,Itching,Unknown Low 03/15/2011 Reaction: Rash, Solanum- Nightshade Vegetables Nausea & Vomiting Low 05/09/2024 Sulfa Itching Low 11/26/2020 Sulfa (Sulfonamide Antibiotics) Rash,Unknown,Itching Low 03/15/2011 Reaction: Rash, Tomato Nausea & Vomiting Low 05/09/2024 Raw tomato Medications simvastatin (ZOCOR) 40 mg tablet Take 0.5 tablets (20 mg total) by mouth daily Active baclofen (LIORESAL) 10 mg tablet TK 1 T PO TID [address] (CYMBALTA) 30 mg capsule Take 2 capsules (60 mg total) by mouth daily Cannot have generic must have brand only, takes 60 mg in winter and 20 mg in summer 1 Active acetaminophen (TYLENOL) 500 mg tabletIndicatio ns:Stroke Take 6 tablets (3,000 mg total) by mouth daily Active Nystop powder 2 Active Xarelto 20 mg tablet Take 1 tablet (20 mg total) by mouth daily 5 Active UNABLE TO FIND Med Name: prevagen Active omega-3 fatty acids (LOVAZA) 1 gram capsule Take 1 capsule (1 g total) by mouth daily Active fluorometholone (FML) 0.1 % ophthalmic suspension Administer 1 drop into the left eye daily 15 mL 3 5 Active Hospital, Clinic, or Other Facility Administered Medication Ordered Dose Route Frequency Start Date End Date Status incobotulinumtoxinA (XEOMIN) 100 unit injection [place]Indications[place] [place] 270 Units IM Once for Clinic-Administere d Medication 09/27/2021 Active Active Problems Problem Noted Date Diagnosed Date Seizures 07/28/2021 Chronic pain of left knee 06/28/2021 Osteoarthritis of left knee 06/28/2021 OAB (overactive bladder) 05/09/2021 Low HDL (under 40) 01/14/2021 Right hemiplegia 09/16/2020 Overview (07/28/2021): S/p CVA 2011 Essential hypertension 09/16/2020 Corneal opacity, central, bilateral 04/15/2020 Assessment & Plan (07/21/2020 11:00 AM CDT): Ct care with Dr Pro. Assessment & Plan (04/15/2020 11:50 AM LICENSE INSPECTOR): Recommend corneal consult. Dr Faustin examined today also and recommended ena drops (gtts) ou ( tid-qid) Subjective vision disturbance, bilateral 021 Assessment & Plan (07/21/2020 10:59 AM CDT): Ct care with Dr Pro and Dr Ramírez. Assessment & Plan (04/15/2020 11:27 AM LICENSE INSPECTOR): Discussed findings. Recommend corneal consult 1st, but pt reports letters look fragmented ever since stroke. May need neuro-op consult if no improvement (NI) after corneal eval/tx. Pseudophakia of both eyes 04/15/2020 Assessment & Plan (07/21/2020 10:59 AM CDT): Stable. Monitor. Assessment & Plan (04/15/2020 11:26 AM LICENSE INSPECTOR): Stable. Monitor. Glaucoma suspect of both eyes 04/15/2020 Assessment & Plan (07/21/2020 10:59 AM CDT): Order Orozco visual field (HVF) and OCT, Re-eval 6 mos Assessment & Plan (04/15/2020 11:39 AM LICENSE INSPECTOR): Schedule Orozco visual field (HVF), repeat intraocular pressure (IOP), and OCT ONH in near future. 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 She ambulates with a cane and requires an AFO to maintain her foot in a position suitable for continued ambulation and prevent excess plantarflexion. She does not have knee instability. This condition will continue indefinitely and require ongoing treatment. She has used an AFO previously with success, however her old AFO appears to no longer fit her. A prefabricated brace was considered but this will be inadequate due to the tonic abnormal position of her foot. A right custom AFO was thus ordered for the patient. After consultation with PT, we determined the following: Patient has trace DF and mild Clonus with an R1 of -15 and an R2 of -8. Patient is currently in a solid ankle afo that is set in PF and too large for her due to weight change. Patient is able to ambulate a distance of greater than 75 feet with assistance of brace. The solid AFO will be used to prevent dorsiflexion and plantarflexion in the Sagittal plane and give full triplanar support. The rigidity will also prevent coronal and limit transverse plane motion. The Carbon reinforced ankle is used to increase strength without increasing weight. The calf liner will help decrease pressure and skin irritation. Gej-frb-kahzi cannot be used due to potential for skin breakdown and the duration of need being greater than 6 months. The patient has spastic hemiplegia due to stroke which has responded well to botox injections. The benefit of injections has now [...] Pronator Teres (right) 10U Adductor policis (right) Assessment & Plan (03/30/2021 7:37 PM LICENSE INSPECTOR): The patient has spastic hemiplegia due to stroke which has responded well to botox injections. The benefit of injections has now [...] Pronator Teres (right) 10U Adductor policis (right) Assessment & Plan (12/29/2020 12:27 PM CDT): The patient has spastic hemiplegia due to [...] Pronator Teres (right) 10U Adductor policis (right) Assessment & Plan (09/22/2020 11:49 AM CDT): The patient has spastic hemiplegia due to [...] Pronator Teres (right) 10U Adductor policis (right) Assessment & Plan (06/23/2020 10:36 AM CDT): The patient has spastic hemiplegia due to stroke which has responded well to botox injections. The benefit of injections has now decreased, and it is reasonable to repeat botox injections at this time. The risks and benefits of botox injections were discussed with the patient and they wish to proceed. A procedure consent was signed. Medications Given: Botulinum toxin injected, quantities listed below. 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 I counseled her that botulinum should help her tight muscles relax and may facilitate that arm's movements from that perspective. It would not make muscles stronger that are currently weak, however. I also do not think it would be helpful for her gait, as her brace currently appears effective for restoring her foot to a normal position and most of her gait abnormality appears driven by weakness, not spasticity. She will watch for any side effects including infection, bleeding or excessive weakness. I explained these to her as well as the expected benefit and she wishes to proceed. Botulinum toxin (Xeomin) was injected into the following muscles using EMG guidance: Medications Given: 120 U (amount wasted: 80 U) injected with EMG guidance into the following muscles using a 1 ml dilution: 20U Biceps Brachii (right) 20U Brachioradialis (right) 20U Flexor Carpi Radialis (right) 20U Flexor Carpi Ulnaris (right) 10U Flexor Digitorum Profundus (right) 10U Flexor Digitorum Superficialis (right) 20U Pronator Teres (right) Aphasia following cerebral infarction 11/21/2019 Hyperlipidemia, mixed 10/14/2019 Depressive disorder 12/06/2018 Cerebrovascular accident (CVA) 12/06/2018 Type 2 diabetes mellitus without complication S/P vaginal hysterectomy 08/09/2018 Overview (07/28/2021): 09/09/15 total vag hyst with BSO due to complex endometrial hyperplasia 09/09/15 total vag hyst with BSO due to complex endometrial hyperplasia Chronic low back pain 06/05/2018 History of left mastectomy 01/17/2017 Obstructive sleep apnea syndrome 07/07/2011 Resolved Problems Problem Noted Date Diagnosed Date Resolved Date Hyperlipidemia 07/07/2011 11/21/2019 Encounters Date Type Department Care Team Description 05/19/2024 Results Follow-Up [facility] Cardiology [facility] Office [facility] [address] [place] [id number] Angie Avitia MD 05/16/2024 10:00 AM LICENSE INSPECTOR Office Visit [facility] Ophthalmology [address] [facility] 6th [place] [address] Giovanna Hinojosa MD Fuchs' corneal dystrophy of both eyes (Primary Dx); Pseudophakia of both eyes; Cornea transplant recipient; Early dry stage nonexudative age-related macular degeneration of both eyes 05/16/[address] [facility] Cardiology [facility] 8th [place] [address] [place] [phone] Kristen Cabrera 05/15/2024 11:30 AM LICENSE INSPECTOR Ancillary Procedure [facility] [address] [facility] [address] [place] [phone] Pulmonary embolism, unspecified chronicity, unspecified pulmonary embolism type, unspecified whether acute cor pulmonale present (HCC) 05/09/2024 11:30 AM LICENSE INSPECTOR Office Visit [facility] Cardiology [address] [facility] [address] [place] [address] Angie Avitia MD Other pulmonary embolism without acute cor pulmonale, unspecified chronicity (HCC) (Primary Dx); DVT (deep venous thrombosis) (HCC); Hyperlipidemia, unspecified hyperlipidemia type; Pulmonary embolism, unspecified chronicity, unspecified pulmonary embolism type, unspecified whether acute cor pulmonale present (HCC) 04/29/[address] [facility] Cardiology [address] [facility] 8th [place] [address] [place] [phone] Gauri Manuel 04/22/[address] [facility] Ophthalmology [address] [place] [address] Giovanna Hinojosa MD new pt scheduled from Last 3 Months Immunizations Immunization Administration Dates Next Due Influenza, Quadrivalent, Spl it, Preservative Free, Intramuscular 01/05/2020 Surgical History Surgery Date Site/Laterality Comments IR FINE NEEDLE ASPIRATION W IMAGE GUIDANCE 07/30/2015 N/A OOPHORECTOMY 03/26/2012 - 03/25/2013 Left MASTECTOMY 03/26/2011 - 03/25/2012 Left CATARACT EXTRACTION Bilateral CORNEAL TRANSPLANT 09/24/2023 - 10/24/2023 Left Medical History Medical History Date Comments Stroke (cerebrum) (HCC) 2010 Cancer (HCC) skin Asthma Diabetes mellitus (HCC) Hypertension Family History Medical History Relation Name Comments Melanoma Father Family history of malignant melanoma - (Added by TW Conv)/Family history of malignant melanoma - (Added by TW Conv) Leukemia Mother Epilepsy Neg Hx Relation Name Status Comments Father Mother Social History Tobacco Use Types Packs/Day Years Used Date Smoking Tobacco: Never Smokeless Tobacco: Never Tobacco Cessation:Counseling Given: Not Answered Alcohol Use Standard Drinks/Week Comments Not Currently 0 (1 standard drink = 0.6 oz pur e alcohol) AUDIT-C Answer Date Recorded Q1: How often do you have a drink containing alc ohol? Monthly or less 07/28/2021 Q2: How many drinks containi ng alcohol do you have on a typical day when you are drinking? 1 or 2 07/28/2021 Frequency of Binge Drinking Not on file 07/2021 Comments No Sex and Gender Information Value Date Recorded Sex Assigned at Not on file Legal Sex Female 12:45 AM LICENSE INSPECTOR Gender Identity Not on file Sexual Orientation Not on file Occupation Industry Job Start Date Job End Date Unemployed Not on file Not on file Not on file Obstetrics History Para Term AB IAB SAB Ectopic Multiple Livin g Live Births 0 0 0 0 0 0 0 0 0 0 0 Last Filed Vital Signs Vital Sign Reading Time Taken Comments Blood Pressure 108/74 05/09/2024 11:30 AM LICENSE INSPECTOR Pulse 62 05/09/2024 11:30 AM LICENSE INSPECTOR Temperature 35.4 C (95.7 F) 07/28/2021 12:43 PM CDT Respiratory Rate 17 07/19/2021 1:53 PM CDT Oxygen Saturation 96% 05/09/2024 11:30 AM LICENSE INSPECTOR Inhaled Oxygen Concentration - - Weight 113.4 kg (250 lb) 05/09/2024 11:30 AM LICENSE INSPECTOR Height 167.6 cm (5' 6 ) 05/09/2024 11:30 AM LICENSE INSPECTOR Body Mass Index 40.35 05/09/2024 11:30 AM LICENSE INSPECTOR Plan of Treatment Health Maintenance Due Date Last Done Comments Albumin Creatinine Ratio, Urine 1950 Depression Screening 1950 Hepatitis C Screening 1950 Foot Exam 1950 DTaP/Tdap/Td Vaccine (1 - Tdap) 10/02/1962 Hepatitis B Screening 10/02/1969 Pneumococcal vaccine 65+ (1 of 2 - PCV) 10/02/1970 Lipid Panel 09/08/2016 09/09/2015, 01/11/2014 eGFR 06/15/2017 06/15/2016 Breast Cancer Screening-Mammogram 07/04/2017 07/04/2016, 07/15/2015, 07/15/2015 Well Visit 65+ 01/14/2021 01/15/2020 Hemoglobin A1C 03/18/2021 09/16/2020 Fall Risk Assessment 07/19/2022 07/19/2021 Osteoporosis Screening-Bone Density Scan 06/21/2023 06/20/2021, 06/20/2021 Covid-19 Vaccine (3 - 2023-2 5 season) 2023 05/10/2020, 04/19/2020 Dilated Eye Exam 05/16/2025 05/16/2024, 04/15/2020 Colon Cancer Screening-Colonoscopy 07/29/2025 07/30/2015 Colon Cancer Screening-CT Colonography Discontinued 07/30/2015 Colon Cancer Screening-DNA Stool Discontinued 07/30/19 Colon Cancer Screening-FIT Discontinued 07/30/2015 Colon Cancer Screening-Sigmoidoscopy Discontinued 07/30/2015 Zoster Vaccine Completed 09/14/2022, 01/0 06/2020, 01/23/2020 Influenza Vaccine Completed 01/09/2024, , 01/09/2019, Additional history exists Goals Goal Patient Goal Type Associated Problems Recent Progress Patient-Stated? Author CCM Chronic Pain Care Plan Chronic Care Management Christa Hawkins, RN Note: Problem: Chronic Pain Goals: 1. Minimize further functional decline 2. Maximize quality of life 3. Control pain Strategies: - Activity/exercise program recommendation - Conservative stepwise pain medicine strategy with multi-disciplinary approach - Recommend healthy lifestyle strategies and compensatory methods as needed Procedures Procedure Name Priority Date/Time Associated Diagnosis Comments OCT, RETINA - OU - BOTH EYES Routine 05/16/2024 11:37 AM LICENSE INSPECTOR Fuchs' corneal dystrophy of both eyes Early dry stage nonexudative age-related macular degeneration of both eyes TRANSTHORACIC ECHO (TTE) COMPLETE W DOPPLER/CF W CONTRAST Routine 05/15/2024 12:30 PM LICENSE INSPECTOR Pulmonary embolism, unspecified chronicity, unspecified pulmonary embolism type, unspecified whether acute cor pulmonale present (HCC) SCREENING MAMMOGRAM Routine 07/04/2016 7 :41 PM CDT EGFR Routine 06/15/2016 5:59 PM CDT SERUM LIPID PANEL Routine 09/09/2015 11: 42 PM CDT COLONOSCOPY REPORT 07/30/2015 from Last 3 Months or Most Recently Relevant to Health Maintenance Results * OCT, Retina - OU - Both Eyes (05/16/2024 11:37 AM LICENSE INSPECTOR) Anatomical Region Laterality Modality Head Optical Coherenc e Tomography Narrative 05/16/2024 11:37 AM LICENSE INSPECTOR Maryam ou No cme us Giovanna Hinojosa MD OPHTH TOMOGRAPHY Final Resu lt * TRANSTHORACIC ECHO (TTE) COMPLETE W DOPPLER/CF W CONTRAST (05/15/2024 12:30 PM LICENSE INSPECTOR) Anatomical Region Laterality Modality Ultrasound 05/15/2024 11:3 9 AM LICENSE INSPECTOR Narrative 05/19/2024 3:51 PM LICENSE INSPECTOR [facility] Cardiac Diagnostic Lab [address], [address] [place] [address] Transthoracic Echocardiographic Report Patient Name: KRISTEN BOURGEOIS R : 1950 (73y 7m) Gender: F Study Date: 05/15/2024 11:39:28 AM Ht(Inch): 66 Wt(Lb): 250 BSA: 2.3 Communications Technologist: PATRICIO Bee Location: [facility] Order Provider: ANGIE AVITIA Heart Rate: 68 BMI: 40.35 BP: 100/54 Quality: The study images were of technically good quality. Ref Provider: ANGIE AVITIA PROCEDURES: Echocardiographic Report: [id number], [id number]) Transthoracic complete echo with strain imaging and contrast, 2D, spectral and tissue Doppler, color flow Doppler, M-mode. Contrast: Contrast Enhancement was Employed: After initial imaging due to sub- optimal quality related to co-morbidity defined by patient's body habitus. 0.4 ml Optison Administered, (2.6 ml wasted). INDICATIONS: I26.99 Other pulmonary embolism without acute cor pulmonale. FINDINGS: Left Ventricle: Normal left ventricular size based on volume index. Concentric LV remodeling. There is hyperdynamic left ventricular systolic function. The Ejection Fraction (Thomas's) is measured at 77 %. Left ventricular diastolic parameters are consistent with Grade I diastolic dysfunction (normal LA pressure). The average global longitudinal strain rate is normal. The LV global strain is: -21.1 %. Right Ventricle: Normal right ventricular size. Normal right ventricular systolic function. Left Atrium: The left atrium is normal in size. Right Atrium: The right atrium is normal in size. Mitral Valve: Normal mitral valve leaflet structure. No mitral regurgitation seen. No stenosis present. Aortic Valve: Trileaflet aortic valve. No aortic regurgitation seen. No aortic valve stenosis. The mean transaortic gradient is 3.72 mmHg. The aortic valve area by the continuity equation (using VTI) is 2.61 cm2. Tricuspid Valve: The tricuspid valve demonstrates normal leaflet structure. No tricuspid regurgitation seen. PASP cannot be evaluated due to lack of adequate TR jet. No tricuspid valve stenosis. Pulmonic Valve: The pulmonic valve demonstrates normal leaflet structure. No evidence of pulmonic regurgitation. No pulmonic valve stenosis present. Pericardium: Normal pericardium without evidence of pericardial effusion. Aorta: The aortic root is normal in size. The aortic root is normal in size when indexed. The ascending aorta is normal in size when indexed. IVC: The IVC (inferior vena cava) was <2.1 cm and collapsibility >50%. CONCLUSIONS: 1. Normal 2D/Doppler echocardiographic study with normal left ventricular function and no significant valvular abnormalities. 2. Concentric LV remodeling. There is hyperdynamic left ventricular systolic function. The Ejection Fraction (Thomas's) is measured at 77 %. Left ventricular diastolic parameters are consistent with Grade I diastolic dysfunction (normal LA pressure). The average global longitudinal strain rate is normal. 3. Normal right ventricular size. Normal right ventricular systolic function. MEASUREMENTS: 2D/MM Value Range Doppler Value Range LVIDd 2D 4.54 cm [ 3.80 - 5.20 ] AV Peak Jasen 1.30 m/s [ 1.00 - 1.70 ] LVIDs 2D 2.47 cm [ 2.20 - 3.50 ] AV Peak PG 6.76 IVSd 2D 0.74 cm [ 0.60 - 0.90 ] AV Mean PG 3.72 mmHg LVPWd 2D 0.99 cm [ 0.60 - 0.90 ] AV VTI 31.66 cm LV Thickness Ratio 0.75 LVOT Peak Jasen 0.99 m/s [ 0.70 - 1.10 ] LV FS 2D 45.54 % [ 27.00 - 45.00 ] LVOT Peak PG 3.92 LV Mass 2D 130.82 g LVOT Mean PG 2.06 mmHg LV Mass Index 2D 56.88 g/m2 LVOT VTI 26.02 cm RWT 0.44 LVOT Diam 2.01 cm EDV Mod BP 88.87 ml [ 46.00 - 106.00 ] TU VTI 2.61 cm2 LV EDV Index 38.64 ml/m2 LVOT/AV VTI 0.82 - Dimensionless index (DVI) ESV Mod BP 20.10 ml [ 14.00 - 42.00 ] MV E Peak Jasen 0.96 m/s [ 0.60 - 1.30 ] EF Mod BP 77 % [ 54 - 74 ] MV A Peak Jasen 0.90 m/s [ 1.00 - 1.20 ] LV GLS -21.1 % [ -18.0 - -16.0 ] MV E/A 1.07 ratio [ 0.80 - 1.50 ] LA Length 2C 4.61 cm MV Decel Time 189.04 msec [ 104.00 - 258.00 ] LA Length 4C 4.24 cm Med E` Jasen 5.57 cm/sec [ 8.00 - 15.00 ] LA Volume BP 48.86 ml Lat E` Jasen 6.64 cm/sec [ 10.00 - 15.00 ] LA Volume Index 21.24 ml/m2 [ 16.00 - 34.00 ] Average E/E` 15.72 RV Base Dimen 2D 3.5 cm [ 2.5 - 4.2 ] RV S` 8.67 cm/sec TAPSE 2.60 cm [ 1.71 - 5.00 ] PV Peak Jasen 1.08 m/s [ 0.40 - 0.80 ] RA Volume 33.73 ml PV Peak PG 4.67 RA Volume Index 14.67 ml/m2 AoR Diam 2D 3.17 cm [ 2.70 - 3.70 ] Ao Root Index 1.38 cm/m2 [ 1.00 - 2.00 ] Asc Ao Diam 2D 3.38 cm Asc Ao Index 1.47 cm/m2 - COMPARISONS: There was no previous study available for comparison. ATTESTATION: I have reviewed and interpreted the pertinent images and measurements of this study. I attest to the conclusions in the final report that is provided above. DISCLAIMER: The study images and the final report will be retained in the patient chart by the Echo Laboratory for the legally required time period. This chart constitutes the legal record of any testing performed. Electronically Signed By: Angie Avitia MD 05/19/2024 3:50:54 PM LICENSE INSPECTOR Electronically Signed By: Angie Avitia MD 05/19/2024 3:50:54 PM LICENSE INSPECTOR Procedure Note Angie Avitia MD - 05/19/2024 [facility] Cardiac Diagnostic Lab [address] [place] [address] Transthoracic Echocardiographic Report Patient Name: KRISTEN BOURGEOIS R : 1950 (73y 7m) Gender: F Study Date: 05/15/2024 11:39:28 AM Ht(Inch): 66 Wt(Lb): 250 BSA: 2.3 Communications Technologist: PATRICIO Bee Location: [facility] Order Provider:ANGIE AVITIA Heart Rate: 68 BMI: 40.35 BP: 100/54 Quality: The study images were oftechnically good quality. Ref Provider: ANGIE AVITIA PROCEDURES: Echocardiographic Report: [id number]) Transthoracic complete echo withstrain imaging and contrast, 2D, spectral and tissue Doppler, color flow Doppler,M-mode. Contrast: Contrast Enhancement was Employed: After initial imaging due tosub- optimal quality related to co-morbidity defined by patient's body habitus. 0.4 mlOptison Administered, (2.6 ml wasted). INDICATIONS: I26.99 Other pulmonary embolism without acute cor pulmonale. FINDINGS: Left Ventricle: Normal left ventricular size based on volume index.Concentric LV remodeling. There is hyperdynamic left ventricular systolic function. TheEjection Fraction (Htomas's) is measured at 77 %. Left ventricular diastolicparameters are consistent with Grade I diastolic dysfunction (normal LA pressure). Theaverage global longitudinal strain rate is normal. The LV global strain is: -21.1 %. Right Ventricle: Normal right ventricular size. Normal right ventricularsystolic function. Left Atrium: The left atrium is normal in size. Right Atrium: The right atrium is normal in size. Mitral Valve: Normal mitral valve leaflet structure. No mitralregurgitation seen. No stenosis present. Aortic Valve: Trileaflet aortic valve. No aortic regurgitation seen. Noaortic valve stenosis. The mean transaortic gradient is 3.72 mmHg. The aortic valvearea by the continuity equation (using VTI) is 2.61 cm2. Tricuspid Valve: The tricuspid valve demonstrates normal leafletstructure. No tricuspid regurgitation seen. PASP cannot be evaluated due to lack of adequate TRjet. No tricuspid valve stenosis. Pulmonic Valve: The pulmonic valve demonstrates normal leaflet structure.No evidence of pulmonic regurgitation. No pulmonic valve stenosis present. Pericardium: Normal pericardium without evidence of pericardialeffusion. Aorta: The aortic root is normal in size. The aortic root is normal insize when indexed. The ascending aorta is normal in size when indexed. IVC: The IVC (inferior vena cava) was <2.1 cm and collapsibility >50%. CONCLUSIONS: 1. Normal 2D/Doppler echocardiographic study with normal left ventricularfunction and no significant valvular abnormalities. 2. Concentric LV remodeling. There is hyperdynamic left ventricularsystolic function. The Ejection Fraction (Thomas's) is measured at 77 %. Left ventriculardiastolic parameters are consistent with Grade I diastolic dysfunction (normal LApressure). The average global longitudinal strain rate is normal. 3. Normal right ventricular size. Normal right ventricular systolicfunction. MEASUREMENTS: 2D/MM Value Range DopplerValue Range LVIDd 2D 4.54 cm [ 3.80 - 5.20 ] AV Peak Vel1.30 m/s [ 1.00 - 1.70 ] LVIDs 2D 2.47 cm [ 2.20 - 3.50 ] AV Peak PG6.76 IVSd 2D 0.74 cm [ 0.60 - 0.90 ] AV Mean PG3.72 mmHg LVPWd 2D 0.99 cm [ 0.60 - 0.90 ] AV VTI31.66 cm LV Thickness Ratio 0.75 LVOT Peak Vel0.99 m/s [ 0.70 - 1.10 ] LV FS 2D 45.54 % [ 27.00 - 45.00 ] LVOT Peak PG3.92 LV Mass 2D 130.82 g LVOT Mean PG2.06 mmHg LV Mass Index 2D 56.88 g/m2 LVOT VTI26.02 cm RWT 0.44 LVOT Diam2.01 cm EDV Mod BP 88.87 ml [ 46.00 - 106.00 ] TU VTI2.61 cm2 LV EDV Index 38.64 ml/m2 LVOT/AV VTI0.82 - Dimensionless index (DVI) ESV Mod BP 20.10 ml [ 14.00 - 42.00 ] MV E Peak Vel0.96 m/s [ 0.60 - 1.30 ] EF Mod BP 77 % [ 54 - 74 ] MV A Peak Vel0.90 m/s [ 1.00 - 1.20 ] LV GLS -21.1 % [ -18.0 - -16.0 ] MV E/A1.07 ratio [ 0.80 - 1.50 ] LA Length 2C 4.61 cm MV Decel Oylp475.04 msec [ 104.00 - 258.00 ] LA Length 4C 4.24 cm Med E` Vel5.57 cm/sec [ 8.00 - 15.00 ] LA Volume BP 48.86 ml Lat E` Vel6.64 cm/sec [ 10.00 - 15.00 ] LA Volume Index 21.24 ml/m2 [ 16.00 - 34.00 ] Average E/E`15.72 RV Base Dimen 2D 3.5 cm [ 2.5 - 4.2 ] RV S`8.67 cm/sec TAPSE 2.60 cm [ 1.71 - 5.00 ] PV Peak Vel1.08 m/s [ 0.40 - 0.80 ] RA Volume 33.73 ml PV Peak PG4.67 RA Volume Index14.67 ml/m2 AoR Diam 2D 3.17 cm [ 2.70 - 3.70 ] Ao Root Index 1.38 cm/m2 [ 1.00 - 2.00 ] Asc Ao Diam 2D3.38 cm Asc Ao Index1.47 cm/m2 - COMPARISONS: There was no previous study available for comparison. ATTESTATION: I have reviewed and interpreted the pertinent images and measurements ofthis study. I attest to the conclusions in the final report that is provided above. DISCLAIMER: The study images and the final report will be retained in the patientchart by the [facility] for the legally required time period. This chart constitutesthe legal record of any testing performed. Electronically Signed By: Angie Avitia MD 05/19/2024 3:50:54 PM LICENSE INSPECTOR Electronically Signed By: Angie Avitia MD 05/19/2024 3:50:54 PM LICENSE INSPECTOR us Angie Avitia MD ECHO PROCEDURES Final Result * Screening Mammogram (07/04/2016 7:41 PM CDT) Anatomical Region Laterality Modality Breast N/A Mammography 07/04/2016 7:41 PM CDT Narrative 07/04/2016 7:41 PM CDT ALEN CAREY M.D. FINAL REPORT ACC# Date Time Exam [id number] Jul 04, 2016 14:41:00 [facility] [place] [id number] Mast Scr unilat w/MELANI R Technologist(s): Chapis Coelho; ; EXAMINATION: Mammogram Technique: Right Breast Digital Breast Tomosynthesis, Unilateral C-view 2D Screening mammogram. Views obtained: right craniocaudal and right mediolateral oblique. Computer Aided Detection was performed. Mammogram Findings: The present examination has been compared to prior imaging studies performed at [facility]. [facility] on 02/23/2010, 04/08/2010 and 04/19/2010, and at [facility] on 07/15/2015. There are scattered areas of fibroglandular density. There is no suspicious abnormality in the right breast. Patient status post contralateral mastectomy for personal history of breast cancer. IMPRESSION: Annual screening mammography is recommended. OVERALL FINAL ASSESSMENT: BI-RADS CATEGORY 1: Negative. Requested By: Mehnaz León M.D. Dictated By: ALEN CAREY M.D. on Jul 07 2016 1:44P This document has been electronically signed by: ALEN CAREY M.D. on Jul 07 2016 1:44P [id number] Procedure Note Miscellaneous, Notinfile / Provider, Dave, - 08/18/2016 ALEN CAREY M.D. FINAL REPORT ACC# Date Time Exam [id number] Jul 04, 2016 14:41:00 [facility] [place] [id number] Mast Scr unilat w/MELANI R Technologist(s): Chapis Coelho; ; EXAMINATION: Mammogram Technique: Right Breast Digital Breast Tomosynthesis, Unilateral C-view 2DScreening mammogram. Views obtained: right craniocaudal and right mediolateral oblique. Computer Aided Detection was performed. Mammogram Findings: The present examination has been compared to prior imaging studies performed at [facility]. [facility] on 02/23/2010, 04/08/2010 and 04/19/2010, and at [facility] on 07/15/2015. There are scattered areas of fibroglandular density. There is no suspicious abnormality in the right breast. Patient status post contralateral mastectomy for personal history of breast cancer. IMPRESSION: Annual screening mammography is recommended. OVERALL FINAL ASSESSMENT: BI-RADS CATEGORY 1: Negative. Requested By: Mehnaz León M.D. Dictated By: ALEN CAREY M.D. on Jul 07 2016 1:44P This document has been electronically signed by: ALEN CAREY M.D. on Jul 07 2016 1:44P [id number] us Not In File Miscellaneous IMG MAMMO PROCEDURES F inal Result * eGFR (06/15/2016 5:59 PM CDT) eGFR >60 mL/min/1.7 3 m2 [facility] Comment: Interpretive Data Reference Interval Normal >/= 90 mL/min/1.73m2 Mildly decreased* 60 - 89 mL/min/1.73m2 Mildly to moderately decreased 45 - 59 mL/min/1.73m2 Moderately to severely decreased 30 - 44 mL/min/1.73m2 Severely decreased 15 - 29 mL/min/1.73m2 Kidney Failure < 15 mL/min/1.73m2 *Relative to young adult level If -Dominican multiply value by 1.16. Estimated glomerular filtration rate is determined by the CKD-EPI equation recommended by the National Kidney Foundation (KDIGO 2012 Clinical Practice Guideline for the Evaluation and Management of Chronic Kidney Disease. Kidney Intnl Suppl Mar 2012;3:1). The CKD-EPI equation should not be used for patients with unstable renal function and has not been validated in children and those over 70. Current interpretive data was last reviewed 2015. Blood specimen (specimen) 06/15/2016 5:59 PM CDT 06/15/2016 7:45 PM CDT Kim Rivera MD LAB BLOOD ORDERABLES Fin al Result AL [facility] [address] [facility]. [place] [address] * (ABNORMAL) Serum lipid panel (09/09/2015 11:42 PM CDT) Cholesterol 121 30 - 200 mg/dl HISTORICAL RESULTS Comment: Interpretive Data Desirable: <200 mg/dL Borderline high: 200-239 mg/dL High: > or = 240 mg/dL Literature Reference: National Cholesterol Education Program (NCEP) Expert Panel on Detection, Evaluation, and Treatment of High Blood Cholesterol in Adults (Adult Treatment Panel III). Circulation 2004; 110:227. Current interpretive data was last revised on 2015. Triglycerides 114 0 - 150 mg/dl HISTORICAL RESULTS Comment: Interpretive Data Desirable: < 150 mg/dL Borderline High: 150 - 199 mg/dL High: 200 - 499 mg/dL Very High: > or = 499 mg/dL Literature Reference: See Cholesterol Current interpretive data was last revised on 2015. HDL 39(L) >=40 mg/dl HISTORICA L RESULTS Comment: Interpretive Data Less than 40 mg/dL - low; A major risk factor for heart disease. Greater than or equal to 60 mg/dL - High; considered protective of heart disease. Literature Reference: See Cholesterol Current interpretive data was last revised on 2015. LDL 59 10 - 129 mg/dl HISTORICAL RESULTS Comment: Interpretive Data Optimal: < 100 mg/dL Near Optimal: 100 - 129 mg/dL Borderline High: 130 - 159 mg/dL High: 160 - 189 mg/dL Very high: > or = 190 mg/dL Literature Reference: See Cholesterol Current interpretive data was last revised on 2015. Non-HDL cholesterol, calculated 82 mg/dl HISTORICAL RESULTS Comment: Interpretive Data When triglycerides are >200 mg/dL, non-HDL C is a secondary target of therapy, with a goal 30 mg/dL higher than the identified LDL-C goal. Reference: See Cholesterol Reference. Current interpretive data was last revised 2015. Serum 09/09/2015 11:4 2 PM CDT us Historical Provider LAB BLOOD ORDERABLES Jessika sutton Result HISTORICAL RESULTS * COLONOSCOPY REPORT (07/30/2015) Anatomical Region Laterality Modality Other Narrative 07/30/2015 Ordered by an unspecified provider. Historical Provider GI PROCEDURE ORDERABLES F inal Result from Last 3 Months or Most Recently Relevant to Health Maintenance Insurance [facility] MEDICARE ADVANTAGE [facility]UAL [facility] [id number] [facility] DIVISION [facility] DUAL [facility]PLETE [id number] [facility] DUAL COMPLETE [id number] Care Teams Wire Products Inspector Relationship Specialty Start Date End Date Rossana Navarro NP [address] [place] [address] PCP - General Nurse Practitioner 04/09/24 Kalee Slaughter, OT Occupational Therapist Occupational Therapy 12/23/19 Chhaya Hernandez, OT Occupational Therapist Occupational Therapy 12/31/19 Kim Carmen, SNUFF GRINDER Speech Language Pathologist Speech Therapy 12/31/19 Jenny Rice, OT Occupational Therapist Occupational Therapy 01/13/20 Noemí Francis, OT Occupational Therapist Occupational Therapy 01/16/20 Rossana Reid OT Occupational Therapist Occupational Therapy 01/22/20
--- OUTSIDE RECORDS SUMMARY | 2024-06-24 20:07 | XMS_ITS | Encounter Summary ---
Author Organization [facility] Address [address] [place] [address] Care Team Providers Care Finished Cigar Maker Name Role Phone Milton Aguirre DO Primary Care Provider Encounter Details Date Type Department Care Team (Late st Contact Info) Description 03/13/2006 Outpatient Historical [facility] Support [facility] (Adt Cardiology[facility]) [address] [place] [id number] Lenny Lucas MD NO ADDRESS ON FILE Social History Tobacco Use Types Packs/Day Years Used Date Smoking Tobacco: Never Assessed Comments Unknown Sex and Gender Information Value Date Recorded Sex Assigned at Not on file Legal Sex Female 3:32 AM DIRECTOR CHILD Gender Identity Not on file Sexual Orientation Not on file documented as of this encounter Plan of Treatment Not on file documented as of this encounter Visit Diagnoses Not on filedocumented in this encounter Care Teams Finished Cigar Maker Relationship Specialty [place] [address] [place] [address] PCP - General Internal Medicine 06/01/21 02/14/22 documented as of this encounter
--- OUTSIDE RECORDS SUMMARY | 2024-06-24 20:07 | XMS_ITS | Continuity of Care Document ---
Author Organization [facility] Address [address] [facility] [address] [place] [address] Phone Care Team Providers Care Log Preparer Name Role Phone Sobia COPELAND, ANURADHAT, Jenny Unavailable Unavailabl e Procedures Procedure Date Therapeutic Activities Hot or Cold Pack Therapeutic Exercise Neuromuscular Re-Ed Therapeutic Activities Neuromuscular Re-Ed Therapeutic Exercise Hot or Cold Pack Therapeutic Activities Therapeutic Exercise Neuromuscular Re-Ed Therapeutic Exercise Neuromuscular Re-Ed PT Evaluation Low Complexity Advance Directives Directive Yes / No Effective Date File Name No Information Encounters Encounter Description Practice Location Reason(s) For Visit Diagnoses Date Provider Providers Copied on Encounter [facility], [id number], tel:[phone] [facility] No Information Sobia Morgan . Referring Provider: Sreekanth Flood, [address] [place] [address], [place], [address]. tel:[phone] [facility], [address], [id number], tel:[phone] [facility] No Information Sobia Morgan . Referring Provider: Sreekanth Flood, [address] [place] [address], [place], [address]. tel:[phone], [id number], tel:[phone] [facility] No Information Sobia Morgan . Referring Provider: Sreekanth Flood, [address] [place] [address], [place], [place], [facility]. tel:[phone], [id number], tel:[phone] [facility] No Information Sobia Morgan . Referring Provider: Sreekanth Flood, [address] [place] [address], [place], [place], [facility]. tel:[phone] Family History Family Member Type Diagnosis Age At Onset No Information Payers Payer name Insurance type Covered green party ID Jacob gunderson(s) [employer] Replacement CI [id number] Social History Type Description Quantity Date Captured Comments Sex Female Smoking Status No Information Chief Complaint And Reason For Visit No Information Reason For Referral Reason For Referral No Information History Of Present Illness Encounter Date Complaint History Of Prese nt Illness No Information Functional Status Date Functional Assessmen t No Information Instructions Date Instruction Additional Infor leonor Giving encouragement to exercise Related to Overweight Giving encouragement to exercise Related to Overweight Assessments Type Assessment Date No Information Patient Care Teams Name Effective Dates (start - stop) Status Members No Information
--- OUTSIDE RECORDS SUMMARY | 2024-06-24 20:07 | XMS_ITS | Referral Summary ---
Author Organization [facility] Address [address] [place] [address] Care Team Providers Care Manager English Name Role Phone Kalee Slaughter OT Unavailable Unavailable Chhaya Hernandez OT Unavailable UnavailKim Hatch PANEL FITTER Unavailable UnavailJenny Glez OT Unavailable Noemí Deal OT Unavailable UnavailRossana Ni OT Unavailable Unavailable Rossana Navarro FAUCETS ASSEMBLER Primary Care Pro vider Encounters Date Type Department Care Team Description 05/19/2024 Results Follow-Up [facility] Cardiology [address] [place] [address] Medical Office Building [address] [place] [address] Angie Avitia MD 05/16/2024 Telephone [facility] Cardiology [address] [place] [address] 8th [place] [address] [place] [address] Kristen Cabrera 05/16/2024 10:00 AM INTERFACE ANALYST Office Visit [facility] Ophthalmology [address] [facility] 6th [place] [address] Giovanna Hinojosa MD Fuchs' corneal dystrophy of both eyes (Primary Dx); Pseudophakia of both eyes; Cornea transplant recipient; Early dry stage nonexudative age-related macular degeneration of both eyes 05/15/2024 11:30 AM INTERFACE ANALYST Ancillary Procedure Heart [facility] [address] [place] [address] 3 [address] JODYCHERISE KARINA [facility] Pulmonary embolism, unspecified chronicity, unspecified pulmonary embolism type, unspecified whether acute cor pulmonale present (HCC) 05/09/2024 11:30 AM INTERFACE ANALYST Office Visit [facility] Cardiology [address] [facility] Medical Office Building [address] [place] [address] Angie Avitia MD Other pulmonary embolism without acute cor pulmonale, unspecified chronicity (HCC) (Primary Dx); DVT (deep venous thrombosis) (HCC); Hyperlipidemia, unspecified hyperlipidemia type; Pulmonary embolism, unspecified chronicity, unspecified pulmonary embolism type, unspecified whether acute cor pulmonale present ([facility]) 04/29/2024 Telephone [facility] Cardiology [address] [facility] Medicine 8th [place] [address] [place] [address] Gauri Manuel 04/22/2024 Telephone [facility] Ophthalmology [address] [place] [address] Giovanna Hinojosa MD new pt scheduled from Last 3 Months Allergies Active Allergy Reactions Criticality Noted Date [...] Status incobotulinumtoxinA (XEOMIN) 100 unit injection 270 UnitsIndications[place] [place] [place] spasticity 270 Units IM Once for Clinic-Administere d Medication 09/27/2021 Active Active Problems Problem Noted Date Diagnosed Date Seizures 07/28/2021 Chronic pain of left knee 06/28/2021 Osteoarthritis of left knee 06/28/2021 OAB (overactive bladder) 05/09/2021 Low HDL (under 40) 01/14/2021 Right hemiplegia 09/16/2020 Overview (07/28/2021): S/p CVA 2010 Essential hypertension 09/16/2020 Corneal opacity, central, bilateral 04/15/2020 Assessment & Plan (07/21/2020 11:00 AM CDT): Ct care with Dr Pro. Assessment & Plan (04/15/2020 11:50 AM INTERFACE ANALYST): Recommend corneal consult. Dr Faustin examined today also and recommended ena drops (gtts) ou ( tid-qid) Subjective vision disturbance, bilateral 021 Assessment & Plan (07/21/2020 10:59 AM CDT): Ct care with Dr Pro and Dr Ramírez. Assessment & Plan (04/15/2020 11:27 AM INTERFACE ANALYST): Discussed findings. Recommend corneal consult 1st, but pt reports letters look fragmented ever since stroke. May need neuro-op consult if no improvement (NI) after corneal eval/tx. Pseudophakia of both eyes 04/15/2020 Assessment & Plan (07/21/2020 10:59 AM CDT): Stable. Monitor. Assessment & Plan (04/15/2020 11:26 AM INTERFACE ANALYST): Stable. Monitor. Glaucoma suspect of both eyes 04/15/2020 Assessment & Plan (07/21/2020 10:59 AM CDT): Order Orozco visual field (HVF) and OCT, Re-eval 6 mos Assessment & Plan (04/15/2020 11:39 AM INTERFACE ANALYST): Schedule Orozco visual field (HVF), repeat intraocular [...] will help decrease pressure and skin irritation. 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, this limits her recovery and has made [...] Diagnosed Date Resolved Date Hyperlipidemia 07/07/2011 11/21/2019 Immunizations Immunization Administration Dates Next Due Influenza, Quadrivalent, Spl it, Preservative Free, Intramuscular 01/05/2020 Social History Tobacco Use Types Packs/Day Years [...] on file Legal Sex Female 12:45 AM INTERFACE ANALYST Gender Identity Not on file Sexual Orientation Not on file Occupation Industry Job Start Date Job End Date Unemployed Not on file Not on file Not on file Last Filed Vital Signs Vital Sign Reading Time Taken Comments Blood Pressure 108/74 05/09/2024 11:30 AM INTERFACE ANALYST Pulse 62 05/09/2024 11:30 AM INTERFACE ANALYST Temperature 35.4 C (95.7 F) 07/28/2021 12:43 PM CDT Respiratory Rate 17 07/19/2021 1:53 PM CDT Oxygen Saturation 96% 05/09/2024 11:30 AM INTERFACE ANALYST Inhaled Oxygen Concentration - - Weight 113.4 kg (250 lb) 05/09/2024 11:30 AM INTERFACE ANALYST Height 167.6 cm (5' 6 ) 05/09/2024 11:30 AM INTERFACE ANALYST Body Mass Index 40.35 05/09/2024 11:30 AM INTERFACE ANALYST Plan of Treatment Not on file Goals Goal Patient Goal Type Associated Problems Recent Progress Patient-Stated? Author CCM Chronic Pain Care Plan Chronic Care Management No Christa Plummer, RN Note: Problem: Chronic Pain Goals: 1. Minimize further functional decline 2. Maximize quality of life 3. Control pain Strategies: - Activity/exercise program recommendation - Conservative stepwise pain medicine strategy with multi-disciplinary approach - Recommend healthy lifestyle strategies and compensatory methods as needed Procedures Procedure Name Priority Date/Time Associated Diagnosis Comments OCT, RETINA - OU - BOTH EYES Routine 05/16/2024 11:37 AM INTERFACE ANALYST Fuchs' corneal dystrophy of both eyes Early dry stage nonexudative age-related macular degeneration of both eyes TRANSTHORACIC ECHO (TTE) COMPLETE W DOPPLER/CF W CONTRAST Routine 05/15/2024 12:30 PM INTERFACE ANALYST Pulmonary embolism, unspecified chronicity, unspecified pulmonary embolism [...] OU - Both Eyes (05/16/2024 11:37 AM INTERFACE ANALYST) Anatomical Region Laterality Modality Head Optical Coherenc e Tomography Narrative 05/16/2024 11:37 AM INTERFACE ANALYST Maryam ou No cme us Giovanna Hinojosa MD OPHTH TOMOGRAPHY Final Resu lt * TRANSTHORACIC ECHO (TTE) COMPLETE W DOPPLER/CF W CONTRAST (05/15/2024 12:30 PM INTERFACE ANALYST) Anatomical Region Laterality Modality Ultrasound 05/15/2024 11:3 9 AM INTERFACE ANALYST Narrative 05/19/2024 3:51 PM INTERFACE ANALYST [facility] Cardiac Diagnostic Lab [address], [address] [place] [address] Transthoracic Echocardiographic Report Patient Name: KRISTEN BOURGEOIS R : 1950 (73y 7m) Gender: F Study Date: 05/15/2024 11:39:28 AM Ht(Inch): 66 Wt(Lb): 250 BSA: 2.3 Ski Patrol Officer: PATRICIO Bee Location: [facility] Order Provider: ANGIE AVITIA Heart Rate: 68 BMI: 40.35 BP: 100/54 Quality: The study images were of technically good quality. Ref Provider: ANGIE AVITIA PROCEDURES: Echocardiographic Report: ([id number], [id number]) Transthoracic complete echo with strain imaging and [...] By: Angie Avitia MD 05/19/2024 3:50:54 PM INTERFACE ANALYST Electronically Signed By: Angie Avitia MD 05/19/2024 3:50:54 PM INTERFACE ANALYST Procedure Note Angie Avitia MD - 05/19/2024 [facility] Cardiac Diagnostic Lab [address], [address] [place] [address] Transthoracic Echocardiographic Report Patient Name: KRISTEN BOURGEOIS R : 1950 (73y 7m) Gender: F Study Date: 05/15/2024 11:39:28 AM Ht(Inch): 66 Wt(Lb): 250 BSA: 2.3 Ski Patrol Officer: PATRICIO Bee Location: [facility] Order Provider:ANGIE AVITIA Heart Rate: 68 BMI: 40.35 BP: 100/54 Quality: The study images were oftechnically good quality. Ref Provider: ANGIE AVITIA PROCEDURES: Echocardiographic Report: ([id number], [id number]) Transthoracic complete echo withstrain imaging and contrast, [...] hyperdynamic left ventricular systolic function. TheEjection Fraction (Thomas's) is measured at 77 %. [...] LA Length 2C 4.61 cm MV Decel Moot929.04 msec [ 104.00 - 258.00 ] LA [...] By: Angie Avitia MD 05/19/2024 3:50:54 PM INTERFACE ANALYST Electronically Signed By: Angie Avitia MD 05/19/2024 3:50:54 PM INTERFACE ANALYST Angie Avitia MD ECHO PROCEDURES Final Result * Screening Mammogram (07/04/2016 7:41 PM CDT) Anatomical Region Laterality Modality Breast N/A Mammography 07/04/2016 7:41 PM CDT Narrative 07/04/2016 7:41 PM CDT ALEN CAREY M.D. FINAL REPORT ACC# Date Time Exam [id number] Jul 04, 2016 14:41:00 [facility] [id number] Mast Scr unilat w/MELANI R Technologist(s): Chapis Coelho; ; EXAMINATION: Mammogram Technique: Right Breast Digital Breast Tomosynthesis, Unilateral C-view 2D Screening mammogram. Views obtained: right craniocaudal and right mediolateral oblique. Computer Aided Detection was performed. Mammogram Findings: The present examination has been compared to prior imaging studies performed at [facility]. [facility] on 02/23/2010, 04/08/2010 and 04/19/2010, and at [facility] on 07/15/2015. There are scattered areas of [...] CAREY M.D. on Jul 07 2016 1:44P [id number] Procedure Note Miscellaneous, Notinfile / Provider, MD Dave - 08/18/2016 ALEN CAREY M.D. FINAL REPORT ACC# Date Time Exam [id number] Jul 04, 2016 14:41:00 [facility] [id number] Mast Scr unilat w/MELANI R Technologist(s): Chapis Coelho; ; EXAMINATION: Mammogram Technique: Right Breast Digital Breast Tomosynthesis, Unilateral C-view 2DScreening mammogram. Views obtained: right craniocaudal and right mediolateral oblique. Computer Aided Detection was performed. Mammogram Findings: The present examination has been compared to prior imaging studies performed at [facility]. [facility] on 02/23/2010, 04/08/2010 and 04/19/2010, and at [facility] on 07/15/2015. There are scattered areas of [...] CAREY M.D. on Jul 07 2016 1:44P [id number] us Not In File Miscellaneous IMG MAMMO PROCEDURES F inal Result * eGFR (06/15/2016 5:59 PM CDT) eGFR >60 mL/min/1.7 3 m2 AL LIRA Comment: Interpretive Data Reference Interval Normal >/= 90 mL/min/1.73m2 Mildly decreased* 60 - 89 mL/min/1.73m2 Mildly to moderately decreased 45 - 59 mL/min/1.73m2 Moderately to severely decreased 30 - 44 mL/min/1.73m2 Severely decreased 15 - 29 mL/min/1.73m2 Kidney Failure < 15 mL/min/1.73m2 *Relative to young adult level If -Portuguese multiply value by 1.16. Estimated glomerular filtration [...] CDT Kim Rivera MD LAB BLOOD ORDERABLES [facility] al Result AL BJWCH [address] [facility] [address] * (ABNORMAL) Serum lipid panel (09/09/2015 11:42 [...] 2015. Serum 09/09/2015 11:4 2 PM CDT Historical Provider LAB BLOOD ORDERABLES Jessika l Result Performing Organization Address City/State/[facility] Co de Phone Number HISTORICAL RESULTS * COLONOSCOPY REPORT (07/30/2015) Anatomical Region Laterality Modality Other Narrative 07/30/2015 Ordered by an unspecified provider. Historical Provider GI PROCEDURE ORDERABLES F inal Result from Last 3 Months or Most Recently Relevant to Health Maintenance Insurance [facility] MEDICARE ADVANTAGE [facility] MEDIC[facility] Address: [address] [address] [place] [address] [facility] DUAL COMPLETE [id number] [facility] MEDICARE Address: [address] [place] [address] [facility] DIVISION [facility] DUAL COMPLETE [id number] [facility] MEDICARE Address: [place] [id number] [facility] DUAL COMPLETE [id number] [facility] MEDICARE Address: [place] [address] Care Teams Manager English Relationship Specialty Start Date End Date Rossana Navarro NP [address] [place] [address] PCP - General Nurse Practitioner 04/09/24 Kalee Slaughter, OT Occupational Therapist Occupational Therapy 12/23/19 Chhaya Hernandez, OT Occupational Therapist Occupational Therapy 12/31/19 Kim Carmen, LAVELL Speech Language Pathologist Speech Therapy 12/31/19 Jenny Rice, OT Occupational Therapist Occupational Therapy 01/13/20 Noemí Francis, OT Occupational Therapist Occupational Therapy 01/16/20 Rossana Reid OT Occupational Therapist Occupational Therapy 01/22/20
--- OUTSIDE RECORDS SUMMARY | 2024-06-24 20:07 | XMS_ITS | Encounter Summary ---
Author Organization [facility] Address [address] [place] [address] Care Team Providers Care Judicial Clerk Name Role Phone Unavailable Primary Care Provider Unavailabl e Encounter Details Date Type Department Care Team (Latest Contact Info) Description 12/08/2020 Abstract Social History Tobacco Use Types Packs/Day Years Used Date Smoking Tobacco: Never Assessed Comments Unknown Sex and Gender Information Value Date Recorded Sex Assigned at Not on file Legal Sex Female 3:05 PM PDT Gender Identity Other 12/07/2020 2:31 PM PDT Sexual Orientation Not on file COVID-19 Exposure Response Date Recorded In the last month, have you been in contact with someone who was confirmed or suspected to have Coronavirus / COVID-19? No / Unsure 12/08/2020 7:47 AM PDT documented as of this encounter Plan of Treatment Not on file documented as of this encounter Visit Diagnoses Not on filedocumented in this encounter
--- OUTSIDE RECORDS SUMMARY | 2024-06-24 20:07 | XMS_ITS | Continuity of Care Document ---
Author Organization [facility] Address [address] [place] [address] Phone Care Team Providers Care Pressure Control Supervisor Name Role Phone Bennett Vee Unavailable Unavailable Allergies, Adverse Reactions, Alerts Substance Reaction Status Criticality Sulfa (Sulfonamide Antibiotics) Rash Active No Information Penicillins Rash Active No Information Medications Medication Instructions Dosage Effective Dates (start - stop) Status Comments metformin 500 mg tablet take 2 tablet by oral route 2 times every day with morning and evening meals 1000 MG - Active Cymbalta 20 mg capsule,delayed release - Active Aspir-81 81 mg tablet,delayed release take 1 tablet by oral route every day - Active Procedures Procedure Date X-ray exam knee, 3 views X-ray exam knee, 4+ views Office/outpatient visit,est, mod 2021 Asp/inject major joint or bursa w/o US g uidance Kenalog 40 Asp/inject major joint or bursa w/o US g uidance X-ray exam foot, minimum 3 views 2016 Global/Postop followup visit X-ray exam foot, minimum 3 views 2016 Global/Postop followup visit X-ray exam foot, minimum 3 views 2016 Office/outpatient visit,new, mod 2016 Clsd Tx Metatarsal Fx Unna Boot Application Advance Directives Directive Yes / No Effective Date File Name No Information Encounters Encounter Description Practice Location Reason(s) For Visit Diagnoses Date Provider Providers Copied on Encounter [facility], [address] [place] [address], [id number], [place] tel:[phone] [facility] Pain in right kneePain in left knee 2 Nanda Sapp er. [address] [place] [address], [place], [place], [id number] , [place]. tel:[phone] Office/outpa tient visit,est, mod [facility], [address] [place] [address], [place], [place], [id number], [place] tel:[phone] [facility] bilat knees (chief complaint) Pain in left kneePain in right kneeBilateral primary osteoarthritis of knee 2 Nanda Sapp er. [address] [place] [address], [id number] , [place]. tel:[phone] Referring Provider: Bennett Zhang, [address] [place] [address], [place], [address]. tel:[phone] [facility], [address] [place] [address], [place], [place], [id number], [place] tel:[phone] [facility] Nondisp fx of 5th metatarsal bone, r ft, 7thD 3201 [address] Jonh Arizmendi [address] [place] [address], [place], [place], [id number] , [place]. tel:[phone] Referring Provider: Anisa Aj, [address] [place] [address], [place], [address]. tel:[phone] [facility], [address] [place] [address], [id number], [place] tel:[phone] [facility] Follow Up of right foot (chief complaint) Nondisp fx of 5th metatarsal bone, r ft, 7thD 8-201 7 Jonh Arizmendi [address], [address], [place], [place], [id number] , [place]. tel: [phone] Referring Provider: Anisa Fultonal, [facility], [place], [address]. tel:[phone] Office/[place]pa [place]ient visit,[place] [facility] [place] [facility], [address], [place], [place], [id number], [place] [phone] [facility] right foot (chief complaint) Pain in right footNondisp fx of 5th metatarsal bone, r ft, 7thDLocalized edemaContusion of right foot, subsequent encounterType 2 diabetes mellitus without complications Sep-0 7 Jonh Arizmendi [address], [address], [place], [place], [id number] , [place]. tel: [phone] Referring Provider: Anisa Aj, [address] [place] [address] [address], [place], [address]. tel:[phone] Family History Family Member Type Diagnosis Age At Onset Father Problem (finding) Cancer, unknown Mother Problem (finding) Cancer, unknown Payers Payer name Insurance type Covered alliance party ID Authoriza tion(s) [facility] Dual Medicare CI [id number] Medicaid MEDICAID Social History Type Description Quantity Date Captured Comments Alcohol Use Details Unknown Caffeine Use Details Unknown Tobacco Use Status No Information Smoking Status No Information Sex Female Chief Complaint And Reason For Visit No Information Reason For Referral Reason For Referral No Information Plan Of Treatment Date Type Action Status Referral Ordered: Other ordered Referral Ordered: X-ray exam knee, 3 views LT knee ordered Referral Referred To: Yoli Millan MD [facility]
10th Floor [place], [place], [phone] Ordered: Referrals: Allopathic & Osteopathic Physicians : Anesthesiology. Yoli Millan MD. Location: [facility]. Evaluate and treat ordered Referral Ordered: X-ray exam knee, 4+ views RT knee ordered Referral Ordered: X-ray exam foot, minimum 3 views RT ordered History Of Present Illness Encounter Date Complaint History Of Prese nt Illness bilat knees Kristen is a 70 y ear-old female who presents to the office for evaluation of bilateral knee pain. She presents with bilateral knee pain. She is seated in a motorized scooter. She has been on Cymbalta in the past which has helped her. She has a history of a stroke with the right sided hemiparesis. She does wear an AFO brace on the right side. She has used yoga and PT in the past. She is a non-smoker. She does have a history of neuropathy. She has had a previous ORIF of her right tibia through a fairly extensive anterior lateral incision. She does transfer with a cane but generally uses her wheelchair. Follow Up of right foot Patient returns for her right foot. right foot Patient presents for her right foot. Functional Status Date Functional Assessmen t No Information Instructions Date Instruction Additional Infor mation After verbal consent was obtained. The patient's left knee was prepped and draped using Betadine and alcohol. A 22-gauge syringe was used to introduce 40 mg of Kenalog and 3 cc of lidocaine through anterior lateral portal. Patient tolerated this procedure well. A sterile dressing was applied. There were no complications. After verbal consent was obtained. The patient's right knee was prepped and draped using Betadine and alcohol. A 22-gauge syringe was used to introduce 40 mg of Kenalog and 3 cc of lidocaine through anterior lateral portal. Patient tolerated this procedure well. A sterile dressing was applied. There were no complications. Related to Bilateral primary osteoarthritis of knee Assessments Type Assessment Date assessment Pain in right knee assessment Pain in left knee Patient Care Teams Name Effective Dates (start - stop) Status Members No Information
--- OUTSIDE RECORDS SUMMARY | 2024-06-24 20:07 | XMS_ITS | Encounter Summary ---
Author Organization [facility] Address [address] [place] [address] Care Team Providers Care Wrapper Sheeter Name Role Phone Unavailable Primary Care Provider Unavailabl e Prior Encounters Date Type Department Care Team Description 12/08/2020 Abstract 12/08/2020 Travel 12/08/2020 8:00 AM CDT Office Visit [facility] [address] [place] [id number] Starr Mcpherson, VANITA Plan of Treatment Not on file Procedures Procedure Name Priority Date/Time Associated Diagnosis Comments INTRAORAL PHOTO Routine 12/08/2020 8:00 AM CDT INTRAORAL PHOTO Routine 12/08/2020 8:00 AM CDT INTRAORAL PHOTO Routine 12/08/2020 8:00 AM CDT INTRAORAL PHOTO Routine 12/08/2020 8:00 AM CDT PANORAMIC RADIOGRAPHIC IMAGE Routine 12/08/2020 8:00 AM CDT INTRAORAL - COMPREHENSIVE SERIES OF RADIOGRAPHIC IMAGES Routine 12/08/2020 8:00 AM CDT COMPREHENSIVE ORAL EVALUATION - NEW OR ESTABLISHED PATIENT Routine 12/08/2020 8:00 AM CDT 19 EXTRACTION - A Routine 12/08/2020 12: 00 AM CDT 30 EXTRACTION - A Routine 12/08/2020 12: 00 AM CDT 31 EXTRACTION - A Routine 12/08/2020 12: 00 AM CDT 32 EXTRACTION - A Routine 12/08/2020 12: 00 AM CDT 18 EXTRACTION - A Routine 12/08/2020 12: 00 AM CDT 17 EXTRACTION - A Routine 12/08/2020 12: 00 AM CDT 16 EXTRACTION - A Routine 12/08/2020 12: 00 AM CDT 14 EXTRACTION - A Routine 12/08/2020 12: 00 AM CDT 3 EXTRACTION - A Routine 12/08/2020 12:0 0 AM CDT 1 EXTRACTION - A Routine 12/08/2020 12:0 0 AM CDT Visit Diagnoses Not on file
--- OUTSIDE RECORDS SUMMARY | 2024-06-24 20:08 | XMS_ITS | Patient Health Record ---
Author Organization [facility] Address [address] [facility] [address] [place] [address] Care Team Providers Care [employer] Supervisor Name Role Phone Ubaldo Pretty Primary Care Provider [phone] Rossana Navarro Unavailable [phone] Teresa Mujica Unavailable [phone] Allergies Allergen (clinical drug ingredient) Drug/Non Drug Allergy documented on EMR Reaction Allergy Type Onset Date Status Penicillin Other Drug Allergy Active Substance with sulfonamide structure and antibacterial mechanism of action (substance) Sulfa Antibiotics Unknown Drug Allergy Active Results Component Value Reference Range Notes OSTEOPOROSIS SCREENING OUTSI DE RECORD Reviewed date:04/23/2024 04:09:55 PM Interpretation: Performing Lab: Notes/Report: MAMMOGRAM OUTSIDE RECORD Reviewed date:04/23/2024 08:53:49 AM Interpretation:Negative Performing Lab: Notes/Report: Negative RAPID HgbA1c Reviewed date:06/18/2024 01:27:33 PM Interpretation:7.1% Performing Lab: Notes/Report: MAXX-Afwaqar ([id number]), [facility] Lot: [id number] COLONOSCOPY OUTSIDE RECORD Reviewed date:04/23/2024 08:53:01 AM Interpretation:Normal Performing Lab: Notes/Report: Normal OPHTHALMOLOGY OUTSIDE RECORD Reviewed date:04/23/2024 08:51:41 AM Interpretation: Performing Lab: Notes/Report: X-Ray: Knee RT 4 Views Reviewed date:06/10/2024 04:23:06 PM Interpretation:Bilateral tricompartmental arthritis Performing Lab: Notes/Report: Bilateral tricompartmental arthritis X-Ray: Knee LT 4 Views Reviewed date:06/10/2024 04:21:46 PM Interpretation:Bilateral tricompartmental arthritis Performing Lab: Notes/Report: Bilateral tricompartmental arthritis Thyroid Isabela Profile Reviewed date:04/09/2024 09:28:50 AM Interpretation:Normal Performing Lab:[facility], Phone - [phone], Director - [facility] Notes/Report: TSH 2.600 0.450-4.500 uIU/mL No apparent thyroid disorder. Additional testing not indicated. In rare instances, Secondary Hypothyroidism as well as Subclinical Hypothyroidism have been reported in some patients with normal TSH values. Comp. Metabolic Panel (14) Reviewed date:04/09/2024 09:28:09 AM Interpretation:Glu 111; eGFR 64 Performing Lab:[facility] [place], [address] [facility], Phone - [phone], Director - [facility] Notes/Report: Glucose 111 70-99 mg/dL BUN 16 8-27 mg/dL Creatinine 0.94 0.57-1.00 mg/dL eGFR 64 >59 mL/min/1.73 BUN/Creatinine Ratio 17 12-28 Sodium 142 134-144 mmol/L Potassium 4.4 3.5-5.2 mmol/L Chloride 102 96-106 mmol/L Carbon Dioxide, Total 24 20-29 mmol/L Calcium 9.7 8.7-10.3 mg/dL Protein, Total 6.8 6.0-8.5 g/dL Albumin 4.2 3.8-4.8 g/dL Globulin, Total 2.6 1.5-4.5 g/dL Bilirubin, Total 0.3 0.0-1.2 mg/dL Alkaline Phosphatase 62 44-121 IU/L AST (SGOT) 13 0-40 IU/L ALT (SGPT) 10 0-32 IU/L Lipid Panel Reviewed date:04/09/2024 09:25:30 AM Interpretation:Tri 153; HDL 37; LDL 65 Performing Lab:[facility] [place], [address] [facility], Phone - [phone], Director - [facility] Notes/Report: Cholesterol, Total 128 100-199 mg/dL Triglycerides 153 0-149 mg/dL HDL Cholesterol 37 >39 mg/dL VLDL Cholesterol Dejon 26 5-40 mg/dL LDL Chol Calc ([facility]) 65 0-99 mg/dL Vitamin D, 25-Hydroxy Reviewed date:04/09/2024 09:28:41 AM Interpretation:51.7 Performing Lab:[facility], [address] [facility], Phone - [phone], [facility] Notes/Report: Vitamin D, 25-Hydroxy 51.7 30.0-100.0 ng/mL Vitamin D deficiency has been defined by the [place] of Medicine and an Endocrine Society practice guideline as a level of serum 25-OH vitamin D less than 20 ng/mL (1,2). The Endocrine Society went on to further define vitamin D insufficiency as a level between 21 and 29 ng/mL (2). 1. IOM ([place] of Medicine). 2010. Dietary reference intakes for calcium and D. [place]: The National Academies Press. 2. Cristine MF, Jarred NC, Debra PAUL, et al. Evaluation, treatment, and prevention of vitamin D deficiency: an Endocrine Society clinical practice guideline. JCEM. 2010; 96(7):1911-30. CBC With Differential/Platel et Reviewed date:04/09/2024 09:28:25 AM Interpretation:Normal Performing Lab:[facility] [place], [address] [facility], Phone - [phone], [facility] Notes/Report: WBC 8.4 3.4-10.8 x10E3/uL RBC 4.89 3.77-5.28 x10E6/uL Hemoglobin 15.4 11.1-15.9 g/dL Hematocrit 47.2 34.0-46.6 % MCV 97 79-97 fL MCH 31.5 26.6-33.0 pg MCHC 32.6 31.5-35.7 g/dL RDW 12.0 11.7-15.4 % Platelets 365 150-450 x10E3/uL Neutrophils 53 Not Estab. % Lymphs 37 Not Estab. % Monocytes 6 Not Estab. % Eos 3 Not Estab. % Basos 1 Not Estab. % Neutrophils (Absolute) 4.5 1.4-7.0 x10E3/uL Lymphs (Absolute) 3.1 0.7-3.1 x10E3/uL Monocytes(Absolute) 0.5 0.1-0.9 x10E3/uL Eos (Absolute) 0.3 0.0-0.4 x10E3/uL Baso (Absolute) 0.1 0.0-0.2 x10E3/uL Immature Granulocytes 0 Not Estab. % Immature Grans (Abs) 0.0 0.0-0.1 x10E3/uL Hemoglobin A1c Reviewed date:04/09/2024 09:27:46 AM Interpretation:6.9% Performing Lab:[facility] [place], [address] [place] [address], [place], Phone - [phone], Director - [facility] Notes/Report: Hemoglobin A1c 6.9 4.8-5.6 % . 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) Referral Organization [facility] Referring Provider First Name Rossana Referring Provider Last Name Melanie Referring Provider Speciality Family Med icine Referred Provider undefined Referred Provider Specialty Social Worke r General Notes Rossana Navarro 01:56:33 PM >[facility] - referral ID [id number], Target specialist:, Specialty: Bench Loom Weaver, Referral information:, Start date: 2024-04-08, End date: 2025-04-08, Number of visits: 3, Diagnosis: , code: F32.1 description: Moderate major depression, Reason: SW referral for ACP and member lives with someone who needs to leave for a week and they need care during that time, Urgency: Routine Clinical Notes Virginia Ortiz 2024 12:41:17 PM >SHILPA called and LVM with member to schedule an appt. Awaiting call back, Virginia Ortiz 04/10/2024 04:43:50 PM >SHILPA missed call from member, called again and LVM. awaiting call back., Virginia Ortiz 04/11/2024 02:00:26 PM >SHILPA called member back after receiving several voice mails, member is in need of some housing resources. She states that she's moved here from [place] but she was under the assumption she would only be living with her friend, Stephanie Alvarado, for a night, but now the apartment she would supposed to be moving into, [facility], has her back on the waiting list for 2 months. She wants to know if the SW has any idea of other places that might accept SHILPA sooner, she can only afford places $550 and under. She does need assistance into the shower, she had a stroke recently and cannot place her foot flat on the ground, cannot lift right foot from ground. She can bathe herself, moves slowly, just needs assistance into the shower. She is not very mobile, she is in a seated position (no straight position) mainly in a chair. SHILPA is under the assumption that [facility] might be better for member, she would do best with applying for KENDALL SIDNEY. SHILPA will speak with Stephanie Christiano, member's best friend, regarding this- phone # [phone]. If she does live alone, she would need homecare for sure. SHILPA will await Stephanie's call back and see what more can be done for member., Virginia Ortiz 04/15/2024 01:11:05 PM >SHILPA spoke with member and her friend Luis regarding homecare and housing issues. SHILPA received verbal permission from member to complete KENDALL, supplemental form, and authorized customer support representative form VIA phone call today and virtually sign for member so that SHILPA could submit for member today- so that could get homecare in the future when she lives independentally. makes around $1820/monthly, so is right over the $1694 limit, will probably qualify for QIT, SHILPA explained this to member and she said she would be interested. SHILPA sent info explaining program to member via email- [email or web address]. SHILPA also sent completed mercedes, supp form, and auth rep to member via email, as well as document list to her so she could email docs back so SW could submit on member behalf. SHILPA will continue to f/u with member. Member is anticipating moving into [facility] within the next month or so, hopefully. SHILPA will reach out to them on member behalf and get an estimated timeframe, in the meantime, SHILPA emailed her some other housing apps.- [facility] apartments, [facility] [employer], and [employer]Angel Allison 06/04/2024 01:44:46 PM >SHILPA emailed [email or web address] with the QIT department due to member's status not moving forward yet with medicaid. SW will continue to f/u. Referral Priority Routine Reason Corneal transplant, please evaluate and treat. Previously seen by Dr. 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 Referred Provider [facility] Referred Provider Specialty Ophthalmolog y General Notes Rossana Navarro 02:20:05 PM >[facility] - referral ID [id number], Target specialist:, Specialty: Ophthalmology, Referral information:, Start date: 2024-04-08, End date: 2025-04-08, Number of visits: 3, Diagnosis: , code: Z94.7 description: Cornea transplant recipient, Reason: Corneal transplant, please evaluate and treat. Previously seen by Dr. Chowdary in [place] #[phone], Urgency: Routine, Judy Ly 04/08/2024 03:06:53 PM >[facility] - referral ID [id number], Target specialist:, , Practice name: [facility], Specialty: Ophthalmology, Address: [place], , , Referral information:, Start date: 2024-04-08, End date: 2025-04-08, Number of visits: 3, Diagnosis: , code: Z94.7 description: Cornea transplant recipient, Reason: Corneal transplant, please evaluate and treat. Previously seen by Dr. Chowdary in [place] #[phone], Urgency: Routine Clinical Notes Judy Ly 04/08/19 03:07:00 PM >[facility], [place], P:[phone] F:[phone], Judy Ly 04/08/2024 03:07:33 PM >Faxed out referral, Jen Shepherd 04/23/2024 04:38:35 PM >Appt Scheduled for 05/16 @ 10am w/Dr Hinojosa Referral Priority Routine Referral Appointment Date 05/16/2024 Reason DVT/PE diagnosed in 12/2023 and on anticoagulation. Diagnosis 1 Acute pulmonary embo lism, unspecified pulmonary embolism type, unspecified whether acute cor pulmonale present (I26.99) Diagnosis 2 Diabetes mellitus wi th peripheral angiopathy (E11.51) Diagnosis 3 Morbid obesity (E66. 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, unspecified hemiplegia type (I69.353) Diagnosis 5 Mixed hyperlipidemia (E78.2) Diagnosis 6 Acute deep vein thro mbosis (DVT) of lower extremity, unspecified laterality, unspecified vein (I82.409) Referral Organization [facility] Referring Provider First Name Rossana Referring Provider Last Name Melanie Referring Provider Speciality Family Med icinegin Referred Provider Tono Guerra Referred Provider Specialty Cardiology General Notes Rossana Navarro 02:55:34 PM >[facility] - referral ID [id number], Target specialist:, Specialty: Cardiology, Referral information:, Start date: 2024-04-23, End date: 2025-04-23, Number of visits: 6, Diagnosis: , code: I26.99 description: Acute pulmonary embolism, unspecified pulmonary embolism type, unspecified whether acute cor pulmonale present, code: E11.51 description: Diabetes mellitus with peripheral angiopathy, code: E66.01 description: Morbid obesity, code: E78.2 description: Mixed hyperlipidemia, code: I69.353 description: 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 , Urgency: Routine, Jen Shepherd 04/23/2024 03:31:10 PM >[facility] - referral ID [id number], Target specialist:, , Name: Mari Armstrong, Practice name: [facility], Specialty: Cardiology, Address: [address] [place] [address], [address], , , Referral information:, Start date: 2024-04-23, End date: 2025-04-23, Number of visits: 6, Diagnosis: , code: E11.51 description: Diabetes mellitus with peripheral angiopathy, code: E66.01 description: Morbid obesity, code: E78.2 description: Mixed hyperlipidemia, code: I26.99 description: Acute pulmonary embolism, unspecified pulmonary embolism type, unspecified whether acute cor pulmonale present, code: I69.353 description: 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, Urgency: Routine Clinical Notes Jen Shepherd 03/27 03:32:11 PM >Referral Sent To:, Name: Mari Armstrong, Practice name: [facility], Specialty: Cardiology, Address: [address] [place] [address], [address], , , Jen Shepherd 04/23/2024 03:33:30 PM >Member's daughter chose this location, Jen Shepherd 04/23/2024 04:13:50 PM >Per provider's request: 1st ov note was sent as well, Jen Shepherd 05/16/2024 03:05:18 PM >pt was seen on 05/09. I requested notes., Jen Shepherd 05/19/2024 11:52:14 AM >Notes received...closing referral...forwarding notes to JR. Referral Priority Routine Referral Appointment Date 05/09/2024 Reason Member needs proper fitting splint for right foot drop, s/p stroke. Please evaluate and treat. Diagnosis 1 Right foot drop (M21 .371) Referral Organization [facility] Referring Provider First Name Rossana Referring Provider Last Name Melanie Referring Provider Speciality Family Med icine Referred Provider Milton Rainey Referred Provider Specialty Orthopedic S urgery - Foot & Ankle General Notes Rossana Navarro 03:02:18 PM >[facility] - referral ID [id number], Target specialist:, Specialty: Orthopedic Surgery - Foot & Ankle, Referral information:, Start date: 2024-04-23, End date: 2025-04-23, Number of visits: 3, Diagnosis: , code: M21.371 description: Right foot drop, Reason: Member needs proper fitting splint for right foot drop, s/p stroke. Please evaluate and treat. , Urgency: Routine, Jen Shepherd 04/23/2024 03:27:00 PM >[facility] - referral ID [id number], Target specialist:, , Name: Redd Milton, Practice name: [facility], Specialty: Orthopedic Surgery - Foot & Ankle, Address: [address] [place] [address], [address], [place], [facility], , , Referral information:, Start date: 2024-04-23, End date: 2025-04-23, Number of visits: 3, Diagnosis: , code: M21.371 description: Right foot drop, Reason: Member needs proper fitting splint for right foot drop, s/p stroke. Please evaluate and treat., Urgency: Routine Clinical Notes Jen Shepherd 03/27 03:35:04 PM >Referral Sent To:, Name: Redd Milton, Practice name: [facility], Specialty: Orthopedic Surgery - Foot & Ankle, Address: [address] [place] [address], [address], [place], [address], , , per daughter's request, Jen Shepherd 04/23/2024 04:16:35 PM >per provider's request first ov note sent as well, Jen Shepherd 05/16/2024 03:21:38 PM >I called to check on referral. I had to [facility] for their office., Jen Shepherd 06/18/2024 10:34:59 AM >pt was seen on 06/17, received notes, forwarding to provider and closing referral Referral Priority Routine Referral Appointment Date 06/17/2024 Reason Dermatology referral for history of cancer and AK. Diagnosis 1 Actinic keratosis (L 57.0) Diagnosis 2 History of melanoma (Z85.820) Diagnosis 3 History of basal so l carcinoma (Z85.828) Referral Organization [facility] Referring Provider First Name Rossana Referring Provider Last Name Yongnadira [facility] Referred Provider Specialty Dermatology General Notes Rossana Navarro 12:32:11 PM >[facility] - referral ID [id number], Target specialist:, Specialty: Dermatology, Referral information:, Start date: 2024-06-18, End date: 2025-06-18, Number of visits: 5, Diagnosis: , code: L57.0 description: Actinic keratosis, code: Z85.820 description: History of melanoma, code: Z85.828 description: History of basal cell carcinoma, Reason: Dermatology referral for history of cancer and AK. , Urgency: Routine, Jen Shepherd 06/18/2024 03:37:14 PM >[facility] - referral ID [id number], Target specialist:, , Practice name: [facility], Specialty: Dermatology, Address: [address] [place] [address], [address], , , Referral information:, Start date: 2024-06-18, End date: 2024-06-23, Number of visits: 5, Diagnosis: , code: L57.0 description: Actinic keratosis, code: Z85.820 description: History of melanoma, code: Z85.828 description: History of basal cell carcinoma, Reason: Dermatology referral for history of cancer and AK., Urgency: Routine Clinical Notes Jen Shepherd 05/25 03:04:21 PM >I called and spoke to pt. She wants her daughter or friend to call around and see where she wants to go for her referral. Then they will call me back, so I can send them off., Jen Shepherd 06/18/2024 03:52:29 PM >per pt's request...Referral Sent To:, Practice name: [facility], Address: [address] [place] [address] , [address] [place] [address], [address], Referral Priority Urgent Reason Chronic pain to righ t shoulder, right arm, right leg, bilateral knees. 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 Please evaluate and treat. Diagnosis 1 Chronic pain syndrom e (G89.4) Referral Organization [facility] Referring Provider First Name Rossana Referring Provider Last Name Melanie Referring Provider Speciality [facility] icine Referred Provider Cortes Barr Referred Provider Specialty Pain Medicin e General Notes Rossana Navarro 12:33:36 PM >[facility] - referral ID [id number], Target specialist:, Specialty: Pain Medicine, Referral information:, Start date: 2024-06-18, End date: 2025-06-18, Number of visits: 3, Diagnosis: , code: G89.4 description: Chronic pain syndrome, Reason: Chronic pain to right shoulder, right arm, right leg, bilateral knees. 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 Please evaluate and treat. , Urgency: Routine, Jen Shepherd 06/18/2024 03:38:42 PM >[facility] - referral ID [id number], Target specialist:, , Name: Cortney Hicks, Practice name: [facility], Specialty: Pain Medicine, Address: [address] [place], [address], , , Referral information:, Start date: 2024-06-18, End date: 2024-06-23, Number of visits: 3, Diagnosis: , code: G89.4 description: Chronic pain syndrome, Reason: Chronic pain to right shoulder, right arm, right leg, bilateral knees. 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 Please evaluate and treat., Urgency: Routine Clinical Notes Jen Shepherd 05/25 03:03:49 PM >I called and spoke to pt. She wants her daughter or friend to call around and see where she wants to go for her referral. Then they will call me back, so I can send them off., Joao Jen 06/18/2024 03:46:33 PM >per pt's request...Referral Sent To:, Name: Cortney Hicks, Practice name: [facility], Address: [address] [place] [address], [address], Referral Priority Routine Reason Please evaluate and treat. 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, unspecified hemiplegia type (I69.353) Diagnosis 2 Generalized epilepsy (G40.309) Referral Organization [facility] Referring Provider First Name Rossana Referring Provider Last Name Melanie Referring [facility] Ref[facility] Provider [facility] Referred Provider Specialty Neurology General Notes Rossana Navarro 12:43:19 PM >[facility] - referral ID [id number], Target specialist:, Specialty: Neurology, Referral information:, Start date: 2024-06-18, End date: 2025-06-18, Number of visits: 10, Diagnosis: , code: G40.309 description: Generalized epilepsy, code: I69.353 description: 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 She wants her daughter or friend to call around and see where she wants to go for her referral. Then they will call me back, so I can send them off., Jen Shepherd 06/18/2024 03:43:35 PM >per pt's request...Referral Sent To:, Practice name: [facility], Specialty: Neurology, Referral Priority Routine Reason 73 yo female with co nfirmed tricompartmental OA of bilateral knee would like to be evaluated for knee replacement,. 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 Referral Priority Routine Medications Medication SIG (Take, Route, Frequency, Duration) Notes Start Date End Date Status Xarelto 20 MG 1 tablet with food Orally Once a day for 90 days Active Baclofen 10 MG 1 tablet as needed Orally Twice a day for 90 days As needed for spasms Active Prevagen 10 MG as directed Orally Active Solifenacin Succinate 5 MG 1 tablet Oral ly Once a day for 90 days Active Cymbalta 60 MG 1 capsule Orally [...] 2 cap Orally three times daily Active Immunizations Vaccine Route Administration Date Status Comme nts Covid - Pfizer Comirnaty (IH) IM Intramuscular 04/23/2024 Administered Sweger, Mike 04/23/2024 04:33:14 PM MACHINE TESTER > posterior Flucelvax IM Intramuscular 05/08/2024 Administered Front of left deltoid Prevnar 20 IM Intramuscular 04/23/2024 Administered Sweger , Mike 04/23/2024 03:41:11 PM MACHINE TESTER > anterior RSV - Pfizer Abrysvo (IH) IM Intramuscular 05/08/2024 Administered Posterior Left Deltoid Social History PHQ-2(2015 edition) Question Answer Notes Little interest or pleasure in doing things? Jessika rly every day Feeling down, depressed, or hopeless? Nearly mirtha day Total Score 6 PHQ 9 Question Answer Notes Little interest or pleasure in doing things Near ly every day Feeling down, depressed, or hopeless Nearly ever y day Trouble falling or staying a sleep, or sleeping too much Nearly every day Feeling tired or having little energy Nearly mirtha ry day Poor appetite or overeating Nearly every day Feeling bad about yourself, or that you are a failure, or have let yourself or your family down Not at all Trouble concentrating on thi ngs, such as reading the newspaper or watching television Nearly every day Moving or speaking so slowly that other people could have noticed. Or the opposite - being so fidgety or restless that you have been moving around a lot more than usual Not at all Thoughts that you would be b krystina off , or of hurting yourself in some way Not at all Total Score 18 Interpretation Moderately severe depression Alcohol Screen Question Answer Notes Did you have a drink contain ing alcohol in the past year? Yes How often did you have six o r more drinks on one occasion in the past year? Never (0 points) How many drinks did you have on a typical day when you were drinking in the past year? 1 or 2 (0 points) How often did you have a dri nk containing alcohol in the past year? Two to four times a month (2 points) Points 3 Interpretation Negative Questionnaire Question Answer Notes 1. Do you currently use any form or forms of tobacco or nicotine? No 2. Have you in the past used any form or forms of tobacco or nicotine? No 3. Have you been/are you cur rently exposed to second hand smoke? 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) Active confirmed Problem 511435247 Overactive bladder (N32.81) Active confirmed Problem 53759451 Secondary hypercoagulable state (D68.69) Active confirmed Problem 018276150 Encounter for screening and preventative care (Z00.00) Active confirmed Colonoscopy 11/2022 normal Problem 93011212 Vitamin D deficiency (E55.9) Active confirmed Problem 802628495 Morbid obesity (E66.01) Active confirmed Problem 65094777 JAN (obstructive sleep apnea) (G47.33) Active confirmed Problem 917230194 Diabetes mellitus with peripheral angiopathy (E11.51) Active confirmed Problem 118813249 Microscopic hematuria (R31.29) Active confirmed Referral to Urology 10/2023 Problem 102897700 Pulmonary nodule (R91.1) Active confirmed CT abd/pel [facility] 06/2016 Problem Shoulder joint pain (115740959) Right shoulder pain, unspecified chronicity (M25.511) Active confirmed Problem 854153803 History of breast cancer (Z85.3) Active confirmed Left mastectomy , poor oncological follow up. Problem 609794723 History of melanoma (Z85.820) Active confirmed Problem 822977 Moderate major depression (F32.1) Active confirmed Problem 629777509 History of basal cell carcinoma (Z85.828) Active confirmed Problem 642367514442609 Right foot drop (M21.371) Active confirmed Problem Osteoarthritis of knee (799083182) Tricompartment osteoarthritis of both knees (M17.0) Active confirmed Problem 014717931124150 Chronic deep vein thrombosis (DVT) of lower extremity, unspecified laterality, unspecified vein (I82.509) Active confirmed 12/2023 with PE Problem 512918395 Hx pulmonary embolism (Z86.711) Active confirmed Problem 203674745 Requires scooter for mobility (Z74.09) Active confirmed Has a walker with a seat, a wheelchair and a scooter she purchased herself. The scooter is not working so well anymore. She has a Alicja scooter in 2020. 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 Vital Signs Heart Rate 78 /min 06/24/2024 Temperature 98.3 degrees Fahrenheit 06/24/2024 Respiratory Rate 20 /min 06/18/2024 Oximetry 98 % 06/24/2024 Blood pressure diastolic 70 mm Hg 06/24/2024 Height 68 in 06/24/2024 Blood pressure systolic 126 mm Hg 06/24/2024 Weight 249 lbs 06/24/2024 BMI 37.86 kg/m2 06/24/2024 Encounters Encounter Location Date Provider Diagnosis [address] [address] 05/08/2024 Rossana Navarro Encounter for immunization Z23 [address] [address] 06/24/2024 Ubaldo Pretty Right shoulder pain, unspecified chronicity M25.511 and Tricompartment osteoarthritis of both knees M17.[address] [address] 04/08/2024 Rossana Navarro 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, unspecified hemiplegia type I69.353 ; Fluency disorder following cerebral infarction I69.323 ; Moderate major depression F32.1 ; Mixed hyperlipidemia E78.2 ; Vitamin D deficiency E55.9 ; Overactive bladder N32.81 ; Secondary hypercoagulable state D68.69 ; Right foot drop M21.371 ; Requires scooter for mobility Z74.09 ; Cornea transplant recipient Z94.7 ; History of breast cancer Z85.3 ; At high risk for falls Z91.81 and Assistance needed for bathing Z74.[address] [address] 04/23/2024 Rossana Navarro Adult general medica l examination Z00.00 ; Acute pulmonary embolism, unspecified pulmonary embolism type, unspecified whether acute cor pulmonale present I26.99 ; Acute deep vein thrombosis (DVT) of lower extremity, unspecified laterality, unspecified vein I82.409 ; Generalized epilepsy G40.309 ; Type 2 diabetes mellitus with other specified complication E11.69 ; Diabetes mellitus with peripheral angiopathy E11.51 ; Morbid obesity E66.01 ; JAN (obstructive sleep apnea) G47.33 ; Osteoporosis, postmenopausal M81.0 ; Microscopic hematuria R31.29 ; Secondary hypercoagulable state D68.69 ; Encounter for immunization Z23 ; Hyperlipidemia, unspecified hyperlipidemia type E78.5 ; Pulmonary nodule R91.1 ; Right foot drop M21.371 ; History of falling Z91.81 and Adult BMI 38.0-38.9 kg/sq m Z68.[address] [address] 06/18/2024 Rossana Navarro Diabetes mellitus wi th peripheral angiopathy E11.51 ; 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, unspecified hemiplegia type I69.353 ; Generalized epilepsy G40.309 ; Chronic deep vein thrombosis (DVT) of lower extremity, unspecified laterality, unspecified vein I82.509 ; Fluency disorder following cerebral infarction I69.323 ; Morbid obesity E66.01 ; Chronic pain syndrome G89.4 ; Actinic keratosis L57.0 ; Secondary hypercoagulable state D68.69 ; BMI 38.0-38.9,adult Z68.38 ; History of basal cell carcinoma Z85.828 ; Need for assistance with personal care Z74.1 ; History of melanoma Z85.820 and History of falling Z91.[address] [address] 04/08/2024 Rossana Navarro [address] [address] 04/23/2024 Rossana Navarro [address] [address] 05/20/2024 Ubaldo Pretty [address] [address] 06/04/2024 Ubaldo Schelby Pain in right knee M25.561 ; Other chronic pain G89.29 and Pain in left knee M25.562 Assessments Encounter Date Diagnosis (ICD Code) Assessment Notes Treatment Notes Treatment Clinical Notes Section Notes 04/23/2024 Adult general medical examination (ICD-10 - Z00.00) 04/23/2024 Acute pulmonary embolism, unspecified pulmonary embolism type, unspecified whether acute cor pulmonale present (ICD-10 - I26.99) Dx 12/2023 Acute diagnosed at last hospital visit, member has been unsure of diagnosis. Education on diagnosis. Continue anticoagulant therapy. Referral to Cardiology. 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 Stable. Discussed pain management. Will discuss PT/OT in the future. 04/08/2024 Fluency disorder following cerebral infarction (ICD-10 - I69.323) Chronic and unchanged. 06/18/2024 Diabetes mellitus with peripheral angiopathy (ICD-10 - E11.51) Member denies that she has diabetes. 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 Member still does not have a home, will order PT/OT when she has a home. 05/08/2024 Encounter for immunization (ICD-10 - Z23) 06/04/2024 Pain in right knee (ICD-10 - M25.561) 06/04/2024 Other chronic pain (ICD-10 - G89.29) 06/24/2024 Right shoulder pain, unspecified chronicity (ICD-10 - M25.511) XRay ordered to assist in facilitating next visit 06/24/2024 Tricompartment osteoarthritis of both knees (ICD-10 - M17.0) Pt with no interest in injections, will place ortho referral to assist in care 06/04/2024 Pain in left knee (ICD-10 - M25.562) 06/18/2024 Generalized epilepsy (ICD-10 - G40.309) Referral to Neurology. 04/08/2024 Moderate major depression (ICD-10 - F32.1) Member adamant that she does not want a psychiatrist or psychologist right now. 04/23/2024 Acute deep vein thrombosis (DVT) of lower extremity, unspecified laterality, unspecified vein (ICD-10 - I82.409) 12/2023 Acutely diagnosed 12/2023, member did not understand diagnosis. Education on diagnosis. Continue anticoagulant therapy. Referral to Cardiology. 04/23/2024 Generalized epilepsy (ICD-10 - G40.309) Member declines to see Neurology or to take medication for this. 04/08/2024 Mixed hyperlipidemia (ICD-10 - E78.2) Check labs. 06/18/2024 Chronic deep vein thrombosis (DVT) of lower extremity, unspecified laterality, unspecified vein (ICD-10 - I82.509) 12/2023 with PE Stable without symptoms. Continue Xarelto. 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 04/08/2024 Vitamin D deficiency (ICD-10 - E55.9) Check labs. 04/23/2024 Type 2 diabetes mellitus with other specified complication (ICD-10 - E11.69) link with hyperlipidemia DM. Member is in denial of this diagnosis, she tells me her A1c used to be 7.1% last time it was checked. 04/23/2024 Diabetes mellitus with peripheral angiopathy (ICD-10 - E11.51) PAD. No claudication. 04/08/2024 Overactive bladder (ICD-10 - N32.81) Stable on medication. 06/18/2024 Morbid obesity (ICD-10 - E66.01) Complicates chronic health issues. 06/18/2024 Chronic pain syndrome (ICD-10 - G89.4) Referral to pain management. 04/08/2024 Secondary hypercoagulable state (ICD-10 - D68.69) Unclear why member is on Xarelto. Will get records. 04/23/2024 Morbid obesity (ICD-10 - E66.01) 04/23/2024 JAN (obstructive sleep apnea) (ICD-10 - G47.33) Compliant with CPAP. 04/08/2024 Right foot drop (ICD-10 - M21.371) Will discuss PT/OT in the future. 06/18/2024 Actinic keratosis (ICD-10 - L57.0) Referral to dermatology. 06/18/2024 Secondary hypercoagulable state (ICD-10 - D68.69) Continue therapy. 04/08/2024 Requires scooter for mobility (ICD-10 - Z74.09) Has a walker with a seat, a wheelchair and a scooter she purchased herself. The scooter is not working so well anymore. She has a Alicja scooter in 2020. Has scooter that someone else is using. 04/23/2024 Osteoporosis, postmenopausal (ICD-10 - M81.0) Dexa 05/2021 [facility]; DEXA in [place] 10/2023 Has never tried oral medications. Start Alendronate once weekly. 04/23/2024 Microscopic hematuria (ICD-10 - R31.29) Referral to Urology 10/2023 Will continue to monitor. 04/08/2024 Cornea transplant recipient (ICD-10 - Z94.7) Referral to Ophthalmology. 06/18/2024 BMI 38.0-38.9,adult (ICD-10 - Z68.38) 06/18/2024 History of basal cell carcinoma (ICD-10 - Z85.828) 04/08/2024 History of breast cancer (ICD-10 - Z85.3) Left mastectomy, poor oncological follow up. Poor oncological follow up. Will consider referral soon. 04/23/2024 Secondary hypercoagulable state (ICD-10 - D68.69) 04/23/2024 Encounter for immunization (ICD-10 - Z23) 04/08/2024 At high risk for falls (ICD-10 - Z91.81) 06/18/2024 Need for assistance with personal care (ICD-10 - Z74.1) 06/18/2024 History of melanoma (ICD-10 - Z85.820) 04/08/2024 Assistance needed for bathing (ICD-10 - Z74.1) 04/23/2024 Hyperlipidemia, unspecified hyperlipidemia type (ICD-10 - E78.5) 04/23/2024 Pulmonary nodule (ICD-10 - R91.1) CT abd/pel [facility] 06/[address] in 2017. No history of smoking. 06/18/2024 History of falling (ICD-10 - Z91.81) 04/23/2024 Right foot drop (ICD-10 - M21.371) Current splint poorly fitting. Referral to Ortho for properly fitting splints. 04/23/2024 History of falling (ICD-10 - Z91.81) 04/23/2024 Adult BMI 38.0-38.9 kg/sq m (ICD-10 - Z68.38) 06/24/2024 Other A total of 27 minutes was spent on this visit reviewing previous notes, counseling the patient, managing orders, reviewing medications, and documenting findings in the progress note. 04/08/2024 Rossana Yeager 04/08/2024 03:35:12 PM MACHINE TESTER > A total of 40 minutes was spent on this visit reviewing previous notes, counseling the patient, managing orders, reviewing medications, and documenting findings in the progress note. 06/18/2024 Rossana Yeager 06/18/2024 12:47:17 PM CDT > A total of 44 minutes was spent on this visit reviewing previous notes, counseling the patient, managing orders, reviewing medications, and documenting findings in the progress note. Plan Of Treatment Pending Test Test Name Order Date X-Ray: Shoulder RT 3 Views 06/24/2024 Albumin/Creatinine Ratio,Urine 5 COLOGUARD OUTSIDE RECORD 04/08/2024 Next Appt Details Provider Name:Rossana Yong er, 07/09/2024 01:00:00 PM, [facility] [place], [address], Insurance Providers Payer Name Payer Address Payer Phone Subscriber Number Group Number Insured Name Patient Relationship to Insured Coverage Start Date Coverage End Date [facility] [address] [address] [place] [address] [id number] Kristen Benoit Self - patient is the insured 5 Medical (General) History Medical History History ICD Code Cerebrovascular accident 2010 Skin cancer basal cell carcinoma removed US 2009 Showed endometrial thickening Breast cancer T1N0 invasive lobular canc er Esophagitis on endoscopy in the past Surgical History Surgery Date(Month/Year) Left mastectomy due to breast cancer 201 6 Left cornea replaced-2023 Right knee surgery Total hysterectomy and bilateral salping o-oophorectomy 2015 Hospitalization History Reason Date(Month/Year) Fall 01/16 CVA with right sided hemiplegia and diff iculty with speech 2010
--- OUTSIDE RECORDS SUMMARY | 2024-06-24 20:08 | XMS_ITS ---
Author Organization [facility] Address [address] [place] [id number] Care Team Providers Care Color Matcher Name Role Phone Ubaldo Pretty Primary Care Provider [phone] Rossana Navarro Unavailable [phone] Allergies Allergen (clinical drug ingredient) Drug/Non Drug Allergy documented on EMR Reaction Allergy Type Onset Date Status Penicillin Other Drug Allergy Active Substance with sulfonamide structure and antibacterial mechanism of action (substance) Sulfa Antibiotics Unknown Drug Allergy Active Results Component Value Reference Range Notes RAPID HgbA1c Reviewed date:06/18/2024 01:27:33 PM Interpretation:7.1% Performing Lab: [id number] Lot: [id number] HbA1c 7.1 4-5.4 % Reason For Referral Reason Dermatology referral for history of cancer and AK. Diagnosis 1 Actinic keratosis (L 57.0) Diagnosis 2 History of melanoma (Z85.820) Diagnosis 3 History of basal so l carcinoma (Z85.828) Referral Organization [facility] [place], [facility] Referring Provider First Name Rossana Referring Provider Last Name Melanie Referring Provider Speciality [facility] Referred Provider [facility] Referred Provider Specialty Dermatology General Notes Rossana Navarro 12:32:11 PM >[facility] - referral ID [id number], Target specialist:, Specialty: Dermatology, Referral information:, Start date: 2024-06-18, End date: 2025-06-18, Number of visits: 5, Diagnosis: , code: L57.0 description: Actinic keratosis, code: Z85.820 description: History of melanoma, code: Z85.828 description: History of basal cell carcinoma, Reason: Dermatology referral for history of cancer and AK. , Urgency: Routine, Jen Shepherd 06/18/2024 03:37:14 PM >[facility] - referral ID [id number], Target specialist:, , Practice name: [facility], Specialty: Dermatology, Address: [address] [place] [address], [address] [place] [address], [facility], , , Referral information:, Start date: 2024-06-18, [...] >per pt's request...Referral Sent To:, Practice name: [facility], Address: [address] [place] [address], [facility], [place], [place], [facility], Referral Priority Urgent Reason Chronic pain to righ t shoulder, right arm, right leg, bilateral knees. 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 Please evaluate and treat. Diagnosis 1 Chronic pain syndrom e (G89.4) Referral Organization [facility] [place] Referring Provider First Name Rossana Referring Provider Last Name Melanie Referring Provider Speciality [facility] Referred Provider [facility] Referred Provider Specialty Pain Medicin e General Notes Rossana Navarro 12:33:36 PM >[facility] - referral ID [id number], Target specialist:, Specialty: Pain Medicine, Referral information:, Start date: 2024-06-18, End date: 2025-06-18, Number of visits: 3, Diagnosis: , code: G89.4 description: Chronic pain syndrome, Reason: Chronic pain to right shoulder, right arm, right leg, bilateral knees. 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 Please evaluate and treat. , Urgency: Routine, Jen Shepherd 06/18/2024 03:38:42 PM >[facility] - referral ID [id number], Target specialist:, , Name: Cortney Hicks, Practice name: [facility], Specialty: Pain Medicine, Address: [facility] [place], [address], , , Referral information:, Start date: 2024-06-18, [...] can send them off., Jen Shepherd 06/18/2024 03:46:33 PM >per pt's request...Referral Sent To:, Name: Cortney Hicks, Practice name: [facility], Address: [address] [place] [address] [place], [address], Referral Priority Routine Reason Please evaluate and treat. 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, unspecified hemiplegia type (I69.353) Diagnosis 2 Generalized epilepsy (G40.309) Referral Organization [facility] [place] Referring Provider First Name Rossana Referring Provider Last Name Melanie Referring Provider Speciality [facility] Referred Provider [facility] Referred Provider Specialty Neurology General Notes Rsosana Navarro 12:43:19 PM >[facility] - referral ID [id number], Target specialist:, Specialty: Neurology, Referral information:, Start date: 2024-06-18, End date: 2025-06-18, Number of visits: 10, Diagnosis: , code: G40.309 description: Generalized epilepsy, code: I69.353 description: 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 , Urgency: Routine, Lyndon Shepherdfelisha 06/18/2024 03:40:07 PM >[facility] - referral ID [id number], Target specialist:, , Practice name: 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 She wants her daughter or friend to call around and see where she wants to go for her referral. Then they will call me back, so I can send them off., Joao Jen 06/18/2024 03:43:35 PM >per pt's request...Referral Sent To:, Practice name: [facility], Specialty: Neurology, Referral Priority Routine REASON FOR VISIT 2 month f/u, taking wt loss pill she got off internet. breath fresh Medications Medication SIG (Take, Route, Frequency, Duration) Notes Start Date End Date Status Baclofen 10 MG 1 tablet as needed Orally Twice a day for 90 days As needed for spasms Active Xarelto 20 MG 1 tablet with food [...] a week for 30 days 04/23/2024 Not-Taking Cymbalta 60 MG 1 capsule Orally Onc e a day for 90 days Active Simvastatin 40 MG 1 tablet in the evening Orally Once a day for 90 days Active Prevagen 10 MG as directed Orally Active Acetaminophen 500 MG 2 cap Orally three times daily Active Social History Alcohol Screen Question Answer Notes Did you [...] Problem Status W/U Status Risk Notes Problem [id number] Chronic deep vein thrombosis (DVT) of lower extremity, unspecified laterality, unspecified vein (I82.509) Active confirmed 12/2023 with PE Problem [id number] Hx pulmonary embolism (Z86.711) Active confirmed Problem 990477307 Chronic pain syndrome (G89.4) Active confirmed Problem 082473607 History of basal cell carcinoma (Z85.828) Active confirmed Problem 532147314 History of melanoma (Z85.820) Active confirmed Vital Signs Temperature 97.1 degrees Fahrenheit 06/19/19 25 Heart Rate 74 /min 06/18/2024 Blood pressure systolic 128 mm Hg 06/19/19 25 Blood pressure diastolic 72 mm Hg 025 Respiratory Rate 20 /min 06/18/2024 Oximetry 96 % 06/18/2024 Height 68 in 06/18/2024 Weight 251.0 lbs 06/18/2024 BMI 38.16 kg/m2 06/18/2024 Encounters Encounter Location Date Provider Diagnosis [address] [id number] 06/18/2024 Rossana Navarro Diabetes mellitus wi th [...] melanoma Z85.820 and History of falling Z91.81 Assessments Encounter Date Diagnosis (ICD Code) Assessment Notes Treatment Notes Treatment Clinical Notes Section Notes 06/18/2024 Diabetes mellitus with peripheral angiopathy (ICD-10 - E11.51) Member denies that she has diabetes. 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 05/2021 Encephalomalacia in the left frontal lobe, old infarct top of the basal ganglia extending into deep white matter. Member still does not have a home, will order PT/OT when she has a home. 06/18/2024 Generalized epilepsy (ICD-10 - G40.309) Referral to Neurology. 06/18/2024 Chronic deep vein thrombosis (DVT) of lower extremity, unspecified laterality, unspecified vein (ICD-10 - I82.509) 12/2023 with PE Stable without symptoms. Continue Xarelto. 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 06/18/2024 Morbid obesity (ICD-10 - E66.01) Complicates chronic health issues. 06/18/2024 Chronic pain syndrome (ICD-10 - G89.4) Referral to pain management. 06/18/2024 Actinic keratosis (ICD-10 - L57.0) Referral to dermatology. 06/18/2024 Secondary hypercoagulable state (ICD-10 - D68.69) Continue therapy. 06/18/2024 BMI 38.0-38.9,adult (ICD-10 - Z68.38) 06/18/2024 History of basal cell carcinoma (ICD-10 - Z85.828) 06/18/2024 Need for assistance with personal care (ICD-10 - Z74.1) 06/18/2024 History of melanoma (ICD-10 - Z85.820) 06/18/2024 History of falling (ICD-10 - Z91.81) 06/18/2024 Other Rossana Navarro 06/18/2024 12:47:17 PM CDT > A total of 44 minutes was spent on this visit reviewing previous notes, counseling the patient, managing orders, reviewing medications, and documenting findings in the progress note. Plan Of Treatment Treatment Notes Assessment Notes Diabetes mellitus with peripheral angiop athy Member denies that she has diabetes. Hemiplegia of right nondomin ant side as late effect of cerebral infarction, unspecified hemiplegia type Member still does not have a home, will order PT/OT when she has a home. Generalized epilepsy Referral to Neurolo gy. Chronic deep vein thrombosis (DVT) of lower extremity, unspecified laterality, unspecified vein Stable without symptoms. Continue Xarelto. Fluency disorder following c erebral infarction Member still does not have a home, will order PT/OT when she has a home. Morbid obesity Complicates chronic health issues. Chronic pain syndrome Referral to pain m anagement. Actinic keratosis Referral to dermatol ogy. Secondary hypercoagulable state Continue therapy. Rossana Yeager 12:47:17 PM CDT > A total of 44 minutes was spent on this visit reviewing previous notes, counseling the patient, managing orders, reviewing medications, and documenting findings in the progress note. Pending Test Test Name Order Date Albumin/Creatinine Ratio,Urine Referrals Referral Date Details 06/18/2024 06/18/2024, Dermatol ogy referral for history of cancer and AK. 06/18/2024 06/18/2024, Chronic pain to right shoulder, right arm, right leg, bilateral knees. 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 Please evaluate and treat. 06/18/2024 06/18/2024, Please e valuate and treat. Next Appt Details Follow Up: Dr. Pretty in wa xt few weeks, 3 Weeks with me, Reason: Follow up 40 min Provider Name:Rossana waddell, 07/09/2024 01:00:00 PM, [address] [place], [address], Progress Notes * Nidhi BENOITOB:1950 ([age] yo F)Acc No.[id number]:06/18/2024 Patient: Kristen Amador PP Provider: Melodie Navarro APRN :1950 A ge:73 Y S ex:Female Date:06/18/2024 Address:[address] [place] [address] [id number] Pcp:Ubaldo Pretty Subjective: * Chief Complaints: * 2 month f/uTaking wt loss pill she got off internet. breath fresh * HPI: . ..: Kristen Benoit is here for a follow up examination. 1. [place] Records 11/16/2022 - A1c 7.0%; eGFR 62 2. Member needs PT when she gets into her own home here in [place]. She is still searching for a home. She has been told she has a room and have been approved. 3. [facility] 05/09/2024. Dr. Avitia. She is doing well as long as she has the Xarelto. 4. Knee exam in [place] 06/18 for knee injections. Xray is done. 5. She got a brace for her right drop foot. Kristen feels like this is helping her a little bit. She was able to get out of chair she normally cannot get out of today. It holds her foot from dropping. She also was seen at a foot center. 6. Tetanus, zoster vaccine. Not today. 7. Epilepsy. She has sahu dsome seizures since the last time I saw her. She felt like it came on when there was a storm. She is now willing to see a Neurologist. She 8. C norah, [employer]. She will be singing. 9. A1c today is 7.1%, last time it was 6.9%. She is looking for a way to lower her weight. She was taking some supplements but she doesn't like them. 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 She has had skin cancer on legs and left arm. Left shoulder had melanoma. Forehead had basal cell carcinoma. 11. Chronic pains. Bilateral knees, right arm pain. 12. She is getting evaluated for a [facility] through [facility] which is a device planted in chest to help with the hemiplegia of the stroke. She wants to see me again in 3 weeks. * ROS: G ENERAL CONSTITUTIONAL: Patient denies: F atigue, Headache, Lightheadedness. ? R ESPIRATORY: Patient denies: C ough, Shortness of breath. ? C ARDIAC: Patient denies: C hest pain, Fluid in legs. ? G ASTROINTESTINAL: Patient denies: A bdominal pain, Nausea, Vomiting. ? M USCULOSKELETAL: Patient complains of: A rthritis Arthralgia,Muscle aches. S KIN: Patient complains of: R shanon. N EUROLOGIC: Patient denies: D ifficulty speaking, Loss of use of extremity. M ENTAL HEALTH: Patient denies: A nxiety, Depressed mood. * Medical History: * Surgical History: L eft mastectomy due to breast cancer 2016 Left cornea replaced-2023 Right knee surgery Total hysterectomy and bilateral salpingo-oophorectomy 2015 * Hospitalization/Major Diagno stic Procedure: F all 01/16CVA with right sided hemiplegia and difficulty with speech 2010 * Family History: F ather: diagnosed with Cancer. M other: diagnosed with Cancer. * Social History: A ctivities of Daily Living (ADL): A ctivities B athing: N eeds help with bathing more than one part of the body, getting in our out of the tub or shower. Requires total bathing. (Dependence: 0 Points) D ressing: N eeds help with dressing self or needs to be completely dressed. (Dependence: 0 Points) T oileting: N eeds help with transferring to the toilet, cleaning self or uses bedpan or commode. (Dependence: 0 Points) T ransferring: N eeds help moving from bed to chair or requires a complete transfer. (Dependence: 0 Points) C ontinence: I s partially or totally incontinent of bowel or bladder. (Dependence: 0 Points) F eeding: N eeds partial or total help with feeding or requires parenteral feeding. (Dependence: 0 Points) A dvance Care Discussion & Planning: A dvance Care Planning Questionnaire D o you have an advance care plan? N o D rug/Alcohol: A lcohol Screen D id you have a drink containing alcohol in the past year? Y es H ow often did you have six or more drinks on one occasion in the past year? N ever (0 points) H ow many drinks did you have on a typical day when you were drinking in the past year? 1 or 2 (0 points) H ow often did you have a drink containing alcohol in the past year? T wo to four times a month (2 points) P oints 3 I nterpretation N egative Drug Screen D oes the patient have a history of illicit drug use? N ever F all Risk Assessment: Q uestionnaire D o you have problems with balance and/or walking? Y es D o you feel the need for a cane, walker or physical therapy program to help with balance and/or walking? Y es D o you have a fear of falling? Y es H ave you fallen in the last 12 months? (A fall is when your body goes to the ground without being pushed.) Y es 2 falls, no injuries T obacco Control Assessment With Pack Years: Q uestionnaire 1 . Do you currently use any form or forms of tobacco or nicotine? N o 2 . Have you in the past used any form or forms of tobacco or nicotine? N o 3 . Have you been/are you currently exposed to second hand smoke? N o I nterpretation: N on-smoker/Never smoked (< 100 cigarettes during individual's lifetime) U rine Incontinence Assessment: Q uestionnaire I n the past 6 months, have you experienced leaking of urine? N o * Medications: T akingAcetaminophen 500 MG Capsule 2 cap Orally three times daily Prevagen 10 MG Capsule as directed Orally Cymbalta 60 MG Capsule Delayed Release Particles 1 capsule Orally Once a day Simvastatin 40 MG Tablet 1 tablet in the evening Orally Once a day Baclofen 10 MG Tablet 1 tablet as needed Orally Twice a day As needed for spasmsXarelto 20 MG Tablet 1 tablet with food Orally Once a day Brimonidine Tartrate-Timolol 0.2-0.5 % Solution 1 drop into affected eye Ophthalmic once a day Solifenacin Succinate 5 MG Tablet 1 tablet Orally Once a day Taking Acetaminophen 500 MG Capsule 2 cap Orally three times daily Taking Prevagen 10 MG Capsule as directed Orally Taking Cymbalta 60 MG Capsule Delayed Release Particles 1 capsule Orally Once a day Taking Simvastatin 40 MG Tablet 1 tablet in the evening Orally Once a day Taking Baclofen 10 MG Tablet 1 tablet as needed Orally Twice a day As needed for spasmsTaking Xarelto 20 MG Tablet 1 tablet with food Orally Once a day Taking Brimonidine Tartrate-Timolol 0.2-0.5 % Solution 1 drop into affected eye Ophthalmic once a day Taking Solifenacin Succinate 5 MG Tablet 1 tablet Orally Once a day Not-TakingAlendronate Sodium 70 MG Tablet 1 tablet 30 minutes before the first food, beverage or medicine of the day with plain water Orally once a week Medication List reviewed and reconciled with the patientNot-Taking Alendronate Sodium 70 MG Tablet 1 tablet 30 minutes before the first food, beverage or medicine of the day with plain water Orally once a week Medication List reviewed and reconciled with the patient * Allergies: P enicillin: OtherSulfa Antibioticsno[Allergies Verified] Objective: * Vitals: H ospitalization within last 30 days: no, Temp:97.1F, HR:74/min, BP:128/72mm Hg, RR:20/min, Oxygen sat %:96%, Ht: 68 in, Wt:251.0lbs, BMI:38.16Index, Weight Change: -1.8 lbs, Weight Change %: -0.71%, Pain scale:0. * P ast Orders: L ab:Hemoglobin A1c (Order Date - 04/08/2024) (Collection Date & Time - 04/08/2024 04:24 PM) Result: 6.9% Value Reference Range Hemoglobin A1c 6.9 H 4.8-5.6 - % L ab:CBC With Differential/Platelet (Order Date - 04/08/2024) (Collection Date & Time - 04/08/2024 04:24 PM) Result: Normal Value Reference Range WBC 8.4 3.4-10.8 - x10E3/uL RBC 4.89 3.77-5.28 - x10E6/uL Hemoglobin 15.4 11.1-15.9 - g/dL Hematocrit 47.2 H 34.0-46.6 - % MCV 97 79-97 - fL MCH 31.5 26.6-33.0 - pg MCHC 32.6 31.5-35.7 - g/dL RDW 12.0 11.7-15.4 - % Platelets 365 150-450 - x10E3/uL Neutrophils 53 Not Estab. - % Lymphs 37 Not Estab. - % Monocytes 6 Not Estab. - % Eos 3 Not Estab. - % Basos 1 Not Estab. - % Neutrophils (Absolute) 4.5 1.4-7.0 - x10E3/u L Lymphs (Absolute) 3.1 0.7-3.1 - x10E3/uL Monocytes(Absolute) 0.5 0.1-0.9 - x10E3/uL Eos (Absolute) 0.3 0.0-0.4 - x10E3/uL Baso (Absolute) 0.1 0.0-0.2 - x10E3/uL Immature Granulocytes 0 Not Estab. - % Immature Grans (Abs) 0.0 0.0-0.1 - x10E3/uL L ab:Vitamin D, 25-Hydroxy (Order Date - 04/08/2024) (Collection Date & Time - 04/08/2024 04:24 PM) Result: 51.7 Value Reference Range Vitamin D, 25-Hydroxy 51.7 30.0-100.0 - ng/mL L ab:Lipid Panel (Order Date - 04/08/2024) (Collection Date & Time - 04/08/2024 04:24 PM) Result: Tri 153; HDL 37; LDL 65 Value Reference Range Cholesterol, Total 128 100-199 - mg/dL Triglycerides 153 H 0-149 - mg/dL HDL Cholesterol 37 L >39 - mg/dL VLDL Cholesterol Dejon 26 5-40 - mg/dL LDL Chol Calc (NIH) 65 0-99 - mg/dL L ab:Comp. Metabolic Panel (14) (Order Date - 04/08/2024) (Collection Date & Time - 04/08/2024 04:24 PM) Result: Glu 111; eGFR 64 Value Reference Range Glucose 111 H 70-99 - mg/dL BUN 16 8-27 - mg/dL Creatinine 0.94 0.57-1.00 - mg/dL BUN/Creatinine Ratio 17 12-28 - Sodium 142 134-144 - mmol/L Potassium 4.4 3.5-5.2 - mmol/L Chloride 102 96-106 - mmol/L Carbon Dioxide, Total 24 20-29 - mmol/L Calcium 9.7 8.7-10.3 - mg/dL Protein, Total 6.8 6.0-8.5 - g/dL Albumin 4.2 3.8-4.8 - g/dL Globulin, Total 2.6 1.5-4.5 - g/dL Bilirubin, Total 0.3 0.0-1.2 - mg/dL Alkaline Phosphatase 62 44-121 - IU/L AST (SGOT) 13 0-40 - IU/L ALT (SGPT) 10 0-32 - IU/L eGFR 64 >59 - mL/min/1.73 L ab:Thyroid [facility] Profile (Order Date - 04/08/2024) (Collection Date & Time - 04/08/2024 04:24 PM) Result: Normal Value Reference Range TSH 2.600 0.450-4.500 - uIU/mL I maging:X-Ray: Knee LT 4 Views (Order Date - 06/04/2024) (Performed Date - 06/09/2024) Result: Bilateral tricompartmental arthritis I maging:X-Ray: Knee RT 4 Views (Order Date - 06/04/2024) (Performed Date - 06/09/2024) Result: Bilateral tricompartmental arthritis I maging:MAMMOGRAM OUTSIDE RECORD (Order Date - 04/08/2024) (Performed Date - 11/05/2023) Result: Negative I maging:COLONOSCOPY OUTSIDE RECORD (Order Date - 04/22/2024) (Performed Date - 12/20/2022) Result: Normal I maging:OPHTHALMOLOGY OUTSIDE RECORD (Order Date - 04/22/2024) (Performed Date - 03/22/2022) I maging:OSTEOPOROSIS SCREENING OUTSIDE RECORD (Order Date - 04/08/2024) (Performed Date - 06/20/2021) * Examination: G ENERAL APPEARANCE: Patient appears: A lert awake and oriented, Well-nourished and hydrated, In no acute distress. H EENT: Head: N ormocephalic, Atraumatic. H EART: Rate & Rhythm: N ormal rate and rhythm. Heart Sounds: N ormal S1 and S2,trace edema to right ankle. L UNGS: Respiratory Effort & Airflow: N o respiratory distress, Breaths regular and deep, Able to speak in full sentences. Auscultation: B reath sounds normal, no cough with deep breathing. S KIN: Exam presents: S kin exam performed,dry flaky patch with pink color to left side of face. M USCULOSKELETAL: M oves about with ease and comfort. right side hemiplegia. Brace to right foot for foot drop. M ENTAL HEALTH: M akes appropriate eye contact and conversation. N EUROLOGIC: S peech is slow and careful, member uses wrong words but often corrects herself. Assessment: * Assessment: 1. D iabetes mellitus with peripheral angiopathy - E11.51 (Primary) 2 . H emiplegia of right nondominant side as late effect of cerebral infarction, unspecified hemiplegia type - I69.353 N otes :MRI [facility] 05/2021 Encephalomalacia in the left frontal lobe, old infarct top of the basal ganglia extending into deep white matter. 3 . G eneralized epilepsy - G40.309 4 . C hronic deep vein thrombosis (DVT) of lower extremity, unspecified laterality, unspecified vein - I82.509 ?Notes :12/2023 with PE 5 . F luency disorder following cerebral infarction - I69.323 6 . M orbid obesity - E66.01 7 . C hronic pain syndrome - G89.4 8. A ctinic keratosis - L57.0 9 . S econdary hypercoagulable state - D68.69 1 0. B ME 38.0-38.9,adult - Z68.38 1 1. H istory of basal cell carcinoma - Z85.828 1 2. N eed for assistance with personal care - Z74.1 13. H istory of melanoma - Z85.820 1 4. H istory of falling - Z91.81 Plan: * Treatment: 2. H emiplegia of right nondominant side as late effect of cerebral infarction, unspecified hemiplegia type Notes: Member still does not have a home, will order PT/OT when she has a home. ? Referral To: [facility] Reason:Please evaluate and treat. 3. G eneralized epilepsy Notes: Referral to Neurology. Referral To: [facility] Reason:Please evaluate and treat. 4. C hronic deep vein thrombosis (DVT) of lower extremity, unspecified laterality, unspecified vein Notes: Stable without symptoms. Continue Xarelto. 5. F luency disorder following cerebral infarction Notes: Member still does not have a home, will order PT/OT when she has a home. 6. M orbid obesity Notes: Complicates chronic health issues. 7. C hronic pain syndrome Notes: Referral to pain management. Referral To:[facility] Reason:Chronic pain to right shoulder, right arm, right leg, bilateral knees. 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 Please evaluate and treat. 8. A ctinic keratosis Notes: Referral to dermatology. Referral To: [facility] D[facility] Reason:Dermatology referral for history of cancer and AK. 9. S econdary hypercoagulable state Notes: Continue therapy. 10. H istory of basal cell carcinoma Referral To: [facility] Dermatology Reason:Dermatology referral for history of cancer and AK. 11. H istory of melanoma Referral To: [facility] D[facility]ology Reason:Dermatology referral for history of cancer and AK. 12. O thers Notes: Rossana Navarro 06/18/2024 12:47:17 PM CDT > A total of 44 minutes was spent on this visit reviewing previous notes, counseling the patient, managing orders, reviewing medications, and documenting findings in the progress note. * Labs: * L ab: RAPID HgbA1c (Collection Date & Time - 06/18/2024 11:50 AM) 7 .1% Value Reference Range H bA1c 7.1 H 4-5.4 - % * Procedure Codes: 8 3036 GLYCATED HEMOGLOBIN TEST, Modifiers: QW 3051F HG A1C>EQUAL 7.0%<8.0%1170F FXNL STATUS [id number] ADVNC CARE PLAN TLK [id number] MED LIST DOCD IN [id number] RVW MEDS BY RX/DR IN [id number] SYST BP LT 130 MM [id number] DIAST BP < 80 MM [id number] AMNT PAIN NOTED NONE [id number] TOBACCO USE, SMOKING, ASSESS * Follow Up: Leatha Pretty in next few weeks, 3 Weeks with me (Reason: Follow up 40 min) * Billing Information: * Visit Code: 74519 Office Visit- New Pt.- Level 3. Modifiers: 25 * Procedure Codes: 29810 GLYCATED HEMOGLOBIN TEST. Modifiers: QW 3051F HG A1C>EQUAL 7.0%<8.0%. 1170F FXNL STATUS ASSESSED. 1158F ADVNC CARE PLAN TLK DOCD. 1159F MED LIST DOCD IN RCRD. 1160F RVW MEDS BY RX/DR IN RD. 3074F SYST BP LT 130 MM HG. 3078F DIAST BP < 80 MM HG. 1126F AMNT PAIN NOTED NONE PRSNT. 1000F TOBACCO USE, SMOKING, ASSESS. * Sign off status: Completed true * Provider: Melodie Navarro APRN Date: 0 06/18/2024 Generated for Paulo floyd/William/Marika on: 0 06/24/2024 08:07 PM CDT History and Physical Notes * HPI (History of Present Illness) Category Sub-Category Detail Notes Category Not es ... Kristen Benoit is here for a follow up examination. 1. [place] Records 11/16/2022 - A1c 7.0%; eGFR 62 2. Member needs PT when she gets into her own home here in [place]. She is still searching for a home. She has been told she has a room and have been approved. 3. [facility] Cardiology 05/09/2024. Dr. Avitia. She is doing well as long as she has the Xarelto. 4. Knee exam in [place] 06/18 for knee injections. Xray is done. 5. She got a brace for her right drop foot. Kristen feels like this is helping her a little bit. She was able to get out of chair she normally cannot get out of today. It holds her foot from dropping. She also was seen at a foot center. 6. Tetanus, zoster vaccine. Not today. 7. Epilepsy. She has sahu dsome seizures since the last time I saw her. She felt like it came on when there was a storm. She is now willing to see a Neurologist. She 8. [facility] [employer] [facility]. She will be singing. 9. A1c today is 7.1%, last time it was 6.9%. She is looking for a way to lower her weight. She was taking some supplements but she doesn't like them. 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 She has had skin cancer on legs and left arm. Left shoulder had melanoma. Forehead had basal cell carcinoma. 11. Chronic pains. Bilateral knees, right arm pain. 12. She is getting evaluated for a Viv[facility] through [facility] which is a device planted in chest to help with the hemiplegia of the stroke. She wants to see me again in 3 weeks. Examination Category Sub-Category Detail Notes Category Not es HEENT Head: Normocephalic, Atraumatic GENERAL APPEARANCE Patient appears: Alert awake and oriented, Well-nourished and hydrated, In no acute distress HEART Rate & Rhythm: Normal rate and rhythm Heart Sounds: Normal S1 and S2, tr be edema to right ankle LUNGS Respiratory Effort & Airflow: No respiratory distress, Breaths regular and deep, Able to speak in full sentences Auscultation: Breath sounds normal , no cough with deep breathing MUSCULOSKELETAL Moves about with ease and comfort. right side hemiplegia. Brace to right foot for foot drop. NEUROLOGIC Speech is slow and careful, member uses wrong words but often corrects herself. MENTAL HEALTH Makes appropri ate eye contact and conversation SKIN Exam presents: Skin exam perfor med, dry flaky patch with pink color to left side of face Consultation Request Notes Referral Date Referring Provider Referred Provider Not es 06/18/2024 Rossana Navarro [facility] referral for history of cancer and AK. 06/18/2024 Rossana Navarro Gregory A Ch ronic pain to right shoulder, right arm, right leg, bilateral knees. 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 Please evaluate and treat. 06/18/2024 Rossana Navarro [facility] Physicians Please evaluate and treat.
--- OUTSIDE RECORDS SUMMARY | 2024-06-24 20:08 | XMS_ITS ---
Author Organization [facility] Address [address] [place] [address] Care Team Providers Care Retort Feeder Ground Bone Name Role Phone Ubaldo Pretty Primary Care Provider Rossana Navarro Unavailable [phone] Results Component Value Reference Range Notes X-Ray: Knee LT 4 Views Reviewed date:06/10/2024 04:21:46 PM Interpretation:Bilateral tricompartmental arthritis Performing Lab: Notes/Report: Bilateral tricompartmental arthritis X-Ray: Knee RT 4 Views Reviewed date:06/10/2024 04:23:06 PM Interpretation:Bilateral tricompartmental arthritis Performing Lab: Notes/Report: Bilateral tricompartmental arthritis REASON FOR VISIT Care Coordination Problems Problem Type SNOMED Code ICD Code Onset Dates Problem Status W/U Status Risk Notes Problem 31159009 Other chronic pain (G89.29) Active confirmed Encounters Encounter Location Date Provider Diagnosis [facility] [address] [place] [phone] 06/04/2024 Ubaldo Rosalesannamaria Pain in right knee M25.561 ; Other chronic pain G89.29 and Pain in left knee M25.562 Assessments Encounter Date Diagnosis (ICD Code) Assessment Notes Treatment Notes Treatment Clinical Notes Section Notes 06/04/2024 Pain in right knee (ICD-10 - M25.561) 06/04/2024 Other chronic pain (ICD-10 - G89.29) 06/04/2024 Pain in left knee (ICD-10 - M25.562) Plan Of Treatment Next Appt Details Provider Name:Rossana waddell, 07/09/2024 01:00:00 PM, [address] [place] [address], [phone], Progress Notes * ARMANDONidhi HopperOB:1950 ([age] yo F)Acc No.[id number]:06/04/2024 Patient: Kristen Amador PP :1950 A ge:73 Y S ex:Female Address:[address] [place] [address], [phone] Subjective: * Chief Complaints: * C are Coordination * Medical History: * Surgical History: * Hospitalization/Major Diagno stic Procedure: * Medications: Objective: * Vitals: * Physical Examination: Assessment: * Assessment: 1. P ain in right knee - M25.561 (Primary) 2 . O ther chronic pain - G89.29? 3. P ain in left knee - M25.562 Plan: * Treatment: 2. P ain in left knee I maging: X-Ray: Knee LT 4 Views * Procedure Codes: * true * Date: Generated for Paulo floyd/William/Kittyitting on: 0 06/24/2024 08:08 PM CDT
--- OUTSIDE RECORDS SUMMARY | 2024-06-24 20:08 | XMS_ITS | Encounter Summary ---
Author Organization [facility] Address [address] [place] [address] Phone Care Team Providers Care Stock Roller Name Role Phone RodneyLorna nievese OT Unavailable Unavailable Chhaya Hernandez OT Unavailable UnavailKim Hatch BAND NAILER Unavailable UnavailJenny Glez OT Unavailable Noemí Deal OT Unavailable UnavailRossana Ni OT Unavailable Unavailable Rossana Navarro COMMERCIAL INSURANCE UNDERWRITER Primary Care Pro vider Encounter Details Date Type Department Care Team (Late st Contact Info) Description 05/19/2024 Results Follow-Up 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 Gender Identity Not on file Sexual Orientation Not on file Occupation Industry Job Start Date Job End Date Unemployed Not on file Not on file Not on file documented as of this encounter Plan of Treatment Not on file documented as of this encounter Goals Goal Patient Goal Type Associated Problems [...] lifestyle strategies and compensatory methods as needed documented as of this encounter Visit Diagnoses Not on filedocumented in this encounter Care Teams Stock Roller Relationship Specialty [place] [address] [place] [address] PCP - General Nurse Practitioner 04/09/24 Kalee [...]
[2024-06-24 20:30] VITALS: BP 108/82; PULSE 73; RESP 15; TEMP 36.3; O2SAT 99
--- NOTE | 2024-06-24 21:14 | PC.NURSE ---
pt asking for admission to rehab or for pain control. Pt unable to stand or walk since this morning on her knee with known arthritis. no new injury, but was walking around during errands. pt states she has no pain medication at home and her dr was not going to give her any.
--- OUTSIDE RECORDS SUMMARY | 2024-06-24 21:53 | XMS_ITS | Encounter Summary ---
Author Organization [facility] Address 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
--- OUTSIDE RECORDS SUMMARY | 2024-06-24 21:53 | XMS_ITS | Encounter Summary ---
Author Organization [facility] Address [address] [place] [address] Phone Care Team Providers Care Ed Educational Aide Name Role Phone RodneyLorna nievese OT Unavailable Unavailable Chhaya Hernandez OT Unavailable UnavailKim Hatch PULVERIZER OPERATOR Unavailable UnavailJenny Glez OT Unavailable Noemí Deal OT Unavailable UnavailRossana Ni OT Unavailable Unavailable Rossana Navarro SANITARY LANDFILL SUPERVISOR Primary Care Pro vider Encounter Details Date Type Department Care Team (Late st Contact Info) Description 05/19/2024 Results Follow-Up [facility] Cardiology [address] [facility] [address] [place] [address] Rj Avitia MD [address] [place] [address] [address] [place] [address] Social History Tobacco Use Types [...] on file Legal Sex Female 12:45 AM SUPERVISOR TAPING Gender Identity Not on file Sexual Orientation [...] on filedocumented in this encounter Care Teams Ed Educational Aide Relationship Specialty [place] [address] [place] [address] PCP - General Nurse Practitioner 04/09/24 Kalee [...]
--- OUTSIDE RECORDS SUMMARY | 2024-06-24 21:53 | XMS_ITS | Encounter Summary ---
Author Organization [facility] Address [address] [place] [address] Care Team Providers Care Cad Manager Name Role Phone Unavailable Primary Care Provider Unavailabl e Prior Encounters Date Type Department Care Team Description 12/08/2020 Abstract 12/08/2020 Travel 12/08/2020 8:00 AM CDT Office Visit [facility] [address] [place] [phone] Starr Mcpherson, VANITA Plan of Treatment Not [...]
--- OUTSIDE RECORDS SUMMARY | 2024-06-24 21:53 | XMS_ITS | Encounter Summary ---
Author Organization [facility] Address [address] [place] [address] Care Team Providers Care Cash Applications Associate Name Role Phone Unavailable Primary Care Provider [...]
--- OUTSIDE RECORDS SUMMARY | 2024-06-24 21:53 | XMS_ITS | Clinical Summary ---
Author Organization [facility] Address [address] [place] [address] Care Team Providers Care Mixer Diamond Powder Name Role Phone Unavailable Primary Care Provider [...] COVID-19 VACCINE - EMERGENCY USE AUTHORIZATION, MRNA, [id number](PF) 30 MCG/0.3 ML IM SUSP 05/10/2020,04/19/2020 (SHINGRIX)(50 [...] on file Legal Sex Female 3:32 AM WOOD VENEER TAPER Gender Identity Not on file Sexual Orientation [...] RATIO URINE QUANT Routine 05/09/2021 11:22 AM WOOD VENEER TAPER Prediabetes POC HEMOGLOBIN A1C Routine 05/09/2021 10 :12 AM WOOD VENEER TAPER Prediabetes LIPID PANEL Routine 01/13/2021 11:05 AM CDT Type 2 diabetes mellitus without complication, without long-term current use of insulin ([facility]) Routine general [facility] MAMMO DIAGNOSTIC UNI RIGHT W OR WO CAD Routine 11/19/2020 9:31 AM CDT Lump of right breast Other signs and symptoms in breast HM DIABETES EYE EXAM Routine 06/14/2020 COLON CANCER SCREEN, STOOL DNA Routine 05/31/2020 12:00 AM WOOD VENEER TAPER Screening for colon cancer from Last 3 [...] refer to the full report available in [facility] under the PACS Images tab. If a faxed copy is needed, please call [phone]. DICTATION LOCATION: [facility] Procedure Note Kaelyn Heath MD - 06/20/2021 SUMMARY DEXA REPORT DATE: 06/20/2021 1:05 PM INDICATION: Postmenopausal FINDINGS: Osteoporosis with lowest T score -2.8. Fracture risk is high. Please refer to the full report available in [facility] under the PACS Images tab. If a faxed copy is needed, please call [phone]. DICTATION LOCATION: [facility] DIAGNOSTIC IMAGING ORD ERABLES Final Result * POC MICROALB/CREAT RATIO URINE QUANT (05/09/2021 11:22 AM WOOD VENEER TAPER) MICROALBUMIN, URINE POC 10.0 5.0 - 300.0 mg/L [facility] CREATININE, URINE POC 100.0 15.0 - 500.0 mg/dL [facility] MICROALBUMIN/CR EAT RATIO, URINE POC 30.0 1.0 - 2,000.0 mg/g [facility] Urine 05/09/2021 11:2 2 AM WOOD VENEER TAPER [facility] POINT OF CARE TESTING Final Result [facility] CL[facility]# [id number] [address] [place] [address] * (ABNORMAL) POC HEMOGLOBIN A1C (05/09/2021 10:12 AM WOOD VENEER TAPER) HGB A1C POC 6.4(A) <=5.7 % [facility] Blood, whole 05/09/2021 10:1 2 AM WOOD VENEER TAPER [facility] POINT OF CARE TESTING Final Result [facility] CLIA# [id number] [address] [place] [address] * (ABNORMAL) LIPID PANEL (01/13/2021 11:05 AM CDT) CHOLESTEROL 134 <200 mg/dL [facility] HDL 36(L) > OR = 50 mg/dL [facility] TRIGLYCERIDE 231(H) <150 mg/dL [facility] Comment: If a non-fasting specimen was collected, consider repeat triglyceride testing on a fasting specimen if clinically indicated. Cristal et al. J. of Clin. Lipidol. 2015;9:129-169. LDL CALCULATED 69 mg/dL (calc) [facility] Comment: Reference range: <100 Desirable range <100 mg/dL for primary prevention; <70 mg/dL for patients with CHD or diabetic patients with > or = 2 CHD risk factors. LDL-C is now calculated using the Leon-Escalera calculation, which is a validated novel method providing better accuracy than the Friedewald equation in the estimation of LDL-C. Leon SS et al. NEMO. 2013;310(19): 9415-3257 (http://education.TeleDNA/faq/IMM715) CHOL/HDL RATIO 3.7 <5.0 (calc) [facility] TOTAL NON-HDL CHOL(LDL+VLDL) 98 <130 mg/dL (calc) [facility] Comment: For patients with diabetes plus 1 major ASCVD risk factor, treating to a non-HDL-C goal of <100 mg/dL (LDL-C of <70 mg/dL) is considered a therapeutic option. Test Performed at: [facility] [address] [place] [address] Twan Goodwin D.O., MPH Blood 01/13/2021 11:0 5 AM CDT 01/13/2021 11:06 AM CDT Milton Aguirre DO CHEMISTRY ORDERABLES F inal Result [facility] [address] [place] [address] * MAMMO DIAGNOSTIC UNI RIGHT W OR WO CAD (11/19/2020 9:31 AM CDT) Anatomical Region Laterality Modality Breast Right Mammography 11/19/2020 9:32 AM CDT Addenda Addendum by Sheila Mckeon MD on 12/01/2020 3:49 PM CDT Comparison is now made with previous films from [facility] dated 09/02/2019 through 07/04/2016. There are no significant interval changes. Recommend annual follow-up. OVERALL FINAL ASSESSMENT: BI-RADS CATEGORY 1: Negative. Narrative 11/19/2020 11:08 AM CDT EXAM: UNILATERAL RIGHT DIAGNOSTIC MAMMOGRAM WITH CAD AND UNILATERAL RIGHT BREAST ULTRASOUND LIMITED 11/19/2020 INDICATION: Palpable lump right breast. History of prior left mastectomy. COMPARISON STUDIES: Prior mammograms are not available but have been performed in [place]. Request has been made to get the prior studies and when available an addendum will be made. PARENCHYMAL COMPOSITION: Heterogeneously dense. Right breast ultrasound shows no mass, cyst or abnormal duct. Only normal tissues are seen. The axilla was scanned and shows some normal lymph nodes. OVERALL FINAL ASSESSMENT: BI-RADS CATEGORY 0: Incomplete: Needs prior mammograms for comparison. DICTATION LOCATION: [facility] Procedure Note Levi Nolasco MD / Sheila Mckeon MD - 11/19/2020 EXAM: UNILATERAL RIGHT DIAGNOSTIC MAMMOGRAM WITH CAD AND UNILATERAL RIGHT BREAST ULTRASOUND LIMITED 11/19/2020 INDICATION: Palpable lump right breast. History of prior left mastectomy. COMPARISON STUDIES: Prior mammograms are not available but have been performed in [place]. Request has been made to get the prior studies and when available an addendum will be made. PARENCHYMAL COMPOSITION: Heterogeneously dense. Right breast ultrasound shows no mass, cyst or abnormal duct. Only normal tissues are seen. The axilla was scanned and shows some normal lymph nodes. OVERALL FINAL ASSESSMENT: BI-RADS CATEGORY 0: Incomplete: Needs prior mammograms for comparison. DICTATION LOCATION: [facility] us Milton Aguirre DO MAMMO ORDERABLES Edite d Result - Final * DIABETES EYE EXAM (06/14/2020) us Cortes Miller MD HEALTH MAINTENANCE Jessika sutton Result [facility]# [id number] [address] [place] [address] * COLON CANCER SCREEN, STOOL DNA (05/31/2020 12:00 AM WOOD VENEER TAPER) COLOGUARD RESULT Negative Not Applicable [employer] [facility] Comment: A negative result indicates [...] Aguirre et al, N Engl J Med 2014;370(14):6999-9304) The normal value (reference range) for this assay is negative. COLOGUARD RE-SCREENING RECOMMENDATION: Periodic routine colorectal cancer screening is an important part of preventive healthcare for asymptomatic persons at average risk for colorectal cancer. Following a negative Cologuard result, the [place] [employer] Society and U.S. Multi-Society Task Force screening guidelines recommend a Cologuard re-screening interval of 3 years. References: [place] [employer] Society (ACS). Colorectal cancer prevention and early detection. [place], [place]: [place] [employer] Society; [updated 2015Jul 17]. https://www.cancer.org/cancer/fevsf-zmuibd-ktgdzv/usxparpvb-fdmxzntre-cjfesxh/ac s-rec ommendations.html. Accessed November 23, 2017; Jasen DK, Keena SANCHEZ, Mona SewellK, Colorectal Cancer Screening: Recommendations for Physicians and Patients from the U.S. Multi-Society Task Force on Colorectal Cancer Screening, Am J Gastroenterology 2017; 112:9695-5152. TEST TYPE: Composite algorithmic analysis of stool [...] interval of every 3 years by the [place] Cancer Society and U.S. Multi-Society Task Force. [...] can be accessed at the following location: www.[employer]/results. Additional description of the Cologuard test process, warnings and precautions can be found at www.cologuardtest.com. Rx only. Stool STOOL SPECIMEN / Unknown 05/31/2020 06/02/2020 4:47 PM WOOD VENEER TAPER Sreekanth Flood MD BODY FLUIDS AND STOOLS Edited Result - Final [employer] [place] # [id number] [address], [address] [place] [address] from Last 3 Months or Most Recently Relevant to Health Maintenance Insurance [facility] [place] [id number] [place] [facility]
--- OUTSIDE RECORDS SUMMARY | 2024-06-24 21:53 | XMS_ITS | Encounter Summary ---
Author Organization [facility] Address [address] [place] [address] Care Team Providers Care Rehab Therapy Manager Name Role Phone Milton Aguirre DO Primary Care Provider Encounter Details Date Type Department Care Team (Late st Contact Info) Description 03/13/2006 Outpatient Historical [facility] Support Serv. (Adt Cardiology-[facility]) [address] [place] [address] Lenny Lucas MD NO ADDRESS ON FILE Social History Tobacco Use Types Packs/Day Years Used Date Smoking Tobacco: Never Assessed Comments Unknown Sex and Gender Information Value Date Recorded Sex Assigned at Not on file Legal Sex Female 3:32 AM DISTRIBUTION CLERK Gender Identity Not on file Sexual Orientation Not on file documented as of this encounter Plan of Treatment Not on file documented as of this encounter Visit Diagnoses Not on filedocumented in this encounter Care Teams Rehab Therapy Manager Relationship Specialty [place] [address] [place] [address] PCP - General Internal Medicine 06/01/21 02/14/22 documented as of this encounter
--- OUTSIDE RECORDS SUMMARY | 2024-06-24 21:53 | XMS_ITS | Clinical Summary ---
Author Organization [facility] Address [address] [place] [address] Care Team Providers Care Rework Machine Operator Name Role Phone Unavailable Primary Care Provider Unavailabl e Allergies Active Allergy Reactions Criticality Noted Date Comments Banana 12/08/2020 Chicken Flavor Unknown 12/08/2020 [place] 12/08/2020 Lanolin Itching,Unknown Medium 07/19/2018 Latex Itching [...]
--- OUTSIDE RECORDS SUMMARY | 2024-06-24 21:53 | XMS_ITS | Encounter Summary ---
Author Organization [facility] Address [address] [place] [address] Care Team Providers Care Tone Regulator Name Role Phone Milton Aguirre DO Primary Care Provider Encounter Details Date Type Department Care Team (Latest Contact Info) Description 03/16/2006 Outpatient Historical [facility] Ubaldo Henriquez MD [address] [address] Postmenopausal Bleeding (Primary Dx) Social History Tobacco Use Types Packs/Day Years Used Date Smoking Tobacco: Never Assessed Comments Unknown Sex and Gender Information Value Date Recorded Sex Assigned at Not on file Legal Sex Female 3:32 AM PICKING SUPERVISOR Gender Identity Not on file Sexual Orientation Not on file documented as of this encounter Plan of Treatment Not on file documented as of this encounter Procedures Procedure Name Priority Date/Time Associated Diagnosis Comments POC , URINE Routine 03/16/2006 9:30 AM PICKING SUPERVISOR HEMOGLOBIN AND HEMATOCRIT Routine 03/13/2006 11:25 AM PICKING SUPERVISOR documented in this encounter Results * POC , URINE (03/16/2006 9:30 AM PICKING SUPERVISOR) , URINE POC Negative Negative INTERFACE SYSTEM 03/16/2006 9:30 AM PICKING SUPERVISOR us Ubaldo Henriquez MD POINT OF CARE TESTING Final Anisa laguerre INTERFACE SYSTEM Refer to clinic/hospital department * (ABNORMAL) HEMOGLOBIN AND HEMATOCRIT (03/13/2006 11:25 AM PICKING SUPERVISOR) HEMOGLOBIN 14.8 11.8 - 14.8 g/dL INTERFACE SYSTEM HEMATOCRIT 44.8(H) 35.5 - 44.0 % INTERFACE SYSTEM 03/13/2006 11:2 5 AM PICKING SUPERVISOR Ubaldo Henriquez MD HEMATOLOGY ORDERABLES Final R esult INTERFACE SYSTEM Refer to clinic/hospital department documented in this encounter Visit Diagnoses Diagnosis Postmenopausal bleeding- Primary documented in this encounter Care Teams Tone Regulator Relationship Specialty [place] [address] [address] [facility] [address] [place] [address] PCP - General Internal Medicine 06/01/21 02/14/22 documented as of this encounter
--- OUTSIDE RECORDS SUMMARY | 2024-06-24 21:53 | XMS_ITS | Encounter Summary ---
Author Organization [facility] Healthcare Address [address] [place] [address] Care Team Providers Care Crystal Mounter Name Role Phone Sreekanth Flood MD Primary Care Provider [phone] Kalee Slaughter OT Unavailable Unavailable Chhaya Hernandez OT Unavailable UnavailKim Hatch LEADER TIER Unavailable UnavailJenny Glez OT Unavailable Noemí Deal OT Unavailable UnavailRossana Ni OT Unavailable Unavailable Rossana Navarro BILINGUAL OPERATOR Primary Care Pro vider Encounter Details Date Type Department Care Team (Late st Contact Info) Description 06/03/2021 Documentation [facility] Speech Therapy [address] [place] [address] Kim Carmen, LAVELL Social History [...] on file Legal Sex Female 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
--- OUTSIDE RECORDS SUMMARY | 2024-06-24 21:53 | XMS_ITS | Continuity of Care Document ---
Author Organization [facility] Address [address] [facility] [address] [place] [address] Phone Care Team Providers Care Edge Banding Machine Offbearer Name Role Phone Sobia COPELAND, ANURADHAT, Jenny Unavailable Unavailabl e Procedures Procedure Date Therapeutic Activities Hot or Cold Pack Neuromuscular Re-Ed Therapeutic Exercise Therapeutic Activities Neuromuscular Re-Ed Therapeutic Exercise Hot or Cold Pack Therapeutic Activities Neuromuscular Re-Ed Therapeutic Exercise Therapeutic Exercise Neuromuscular Re-Ed PT Evaluation Low Complexity Advance Directives Directive Yes / No Effective Date File Name No Information Encounters Encounter Description Practice Location Reason(s) For Visit Diagnoses Date Provider Providers Copied on Encounter [facility], [id number], tel:[phone] [facility] No Information Sobia Morgan . Referring Provider: Sreekanth Flood, [address] [place] [address], [place], [address]. tel:[phone] [facility], [address], [id number], tel:[phone] [facility] No Information Sobia Morgan . Referring Provider: Sreekanth Flood, [address] [place] [address], [place], [address]. tel:[phone], [id number], tel:[phone] [facility] No Information Sobia Morgan . Referring Provider: Sreekanth Flood, [address] [place] [address], [place], [place], [facility]. tel:[phone], [id number], tel:[phone] [facility] No Information Sobia Morgan . Referring Provider: Sreekanth Flood, [address] [place] [address], [place], [place], [facility]. tel:[phone] Family History Family Member Type Diagnosis Age At Onset No Information Payers Payer name Insurance type Covered green party ID Jacob gunderson(s) [employer] Medicare Replacement CI [id number] Social History Type Description Quantity Date Captured [...]
--- OUTSIDE RECORDS SUMMARY | 2024-06-24 21:53 | XMS_ITS | Referral Summary ---
Author Organization [facility] Address [address] [place] [address] Care Team Providers Care Mathematical Engineer Name Role Phone Kalee Slaughter OT Unavailable Unavailable Chhaya Hernandez OT Unavailable UnavailKim Hatch MASCARA MOLDER Unavailable UnavailJenny Glez OT Unavailable Noemí Deal OT Unavailable UnavailRossana Ni OT Unavailable Unavailable Rossana Navarro POULTRY RAISER Primary Care Pro vider Encounters Date Type Department Care Team Description 05/19/2024 Results Follow-Up [facility] Cardiology [address] [place] [address] Medical Office Building [address] [place] [address] Angie Avitia MD 05/16/2024 Telephone [facility] Cardiology [address] [place] [address] 8th [place] [address] [place] [address] Kristen Cabrera 05/16/2024 10:00 AM WAITER Office Visit [facility] Ophthalmology [address] [facility] 6th [place] [address] Giovanna Hinojosa MD Fuchs' corneal dystrophy of both eyes (Primary Dx); Pseudophakia of both eyes; Cornea transplant recipient; Early dry stage nonexudative age-related macular degeneration of both eyes 05/15/2024 11:30 AM WAITER Ancillary Procedure [facility] [place] [address] [place] [address] [address] JODYCHERISE KARINA [facility] Pulmonary embolism, unspecified chronicity, unspecified pulmonary embolism type, unspecified whether acute cor pulmonale present (HCC) 05/09/2024 11:30 AM WAITER Office Visit [facility] Cardiology [address] [facility] Medical Office Building [address] [place] [address] Angie Avitia MD Other pulmonary embolism without acute cor pulmonale, unspecified chronicity (HCC) (Primary Dx); DVT (deep venous thrombosis) (HCC); Hyperlipidemia, unspecified hyperlipidemia type; Pulmonary embolism, unspecified chronicity, unspecified pulmonary embolism type, unspecified whether acute cor pulmonale present ([facility]) 04/29/2024 Telephone [facility] Cardiology [address] [facility] Medicine 8th [place] [address] [place] [address] Gauri Manuel 04/22/2024 Telephone [facility] Ophthalmology [address] [place] [address] Giovanna Hinojosa MD new pt scheduled from [...] Status incobotulinumtoxinA (XEOMIN) 100 unit injection 270 UnitsIndications:[facility] [place] spasticity 270 Units IM Once for [...] Pro. Assessment & Plan (04/15/2020 11:50 AM WAITER): Recommend corneal consult. Dr Faustin examined today also and recommended ena drops (gtts) ou ( tid-qid) Subjective vision disturbance, bilateral 021 Assessment & Plan (07/21/2020 10:59 AM CDT): Ct care with Dr Pro and Dr Ramírez. Assessment & Plan (04/15/2020 11:27 AM WAITER): Discussed findings. Recommend corneal consult 1st, but pt reports letters look fragmented ever since stroke. May need neuro-op consult if no improvement (NI) after corneal eval/tx. Pseudophakia of both eyes 04/15/2020 Assessment & Plan (07/21/2020 10:59 AM CDT): Stable. Monitor. Assessment & Plan (04/15/2020 11:26 AM WAITER): Stable. Monitor. Glaucoma suspect of both eyes 04/15/2020 Assessment & Plan (07/21/2020 10:59 AM CDT): Order Orozco visual field (HVF) and OCT, Re-eval 6 mos Assessment & Plan (04/15/2020 11:39 AM WAITER): Schedule Orozco visual field (HVF), repeat intraocular [...] will help decrease pressure and skin irritation. 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, this limits her recovery and has made [...] on file Legal Sex Female 12:45 AM WAITER Gender Identity Not on file Sexual Orientation Not on file Occupation Industry Job Start Date Job End Date Unemployed Not on file Not on file Not on file Last Filed Vital Signs Vital Sign Reading Time Taken Comments Blood Pressure 108/74 05/09/2024 11:30 AM WAITER Pulse 62 05/09/2024 11:30 AM WAITER Temperature 35.4 C (95.7 F) 07/28/2021 12:43 PM CDT Respiratory Rate 17 07/19/2021 1:53 PM CDT Oxygen Saturation 96% 05/09/2024 11:30 AM WAITER Inhaled Oxygen Concentration - - Weight 113.4 kg (250 lb) 05/09/2024 11:30 AM WAITER Height 167.6 cm (5' 6 ) 05/09/2024 11:30 AM WAITER Body Mass Index 40.35 05/09/2024 11:30 AM WAITER Plan of Treatment Not on file Goals [...] - BOTH EYES Routine 05/16/2024 11:37 AM WAITER Fuchs' corneal dystrophy of both eyes Early dry stage nonexudative age-related macular degeneration of both eyes TRANSTHORACIC ECHO (TTE) COMPLETE W DOPPLER/CF W CONTRAST Routine 05/15/2024 12:30 PM WAITER Pulmonary embolism, unspecified chronicity, unspecified pulmonary embolism [...] OU - Both Eyes (05/16/2024 11:37 AM WAITER) Anatomical Region Laterality Modality Head Optical Coherenc e Tomography Narrative 05/16/2024 11:37 AM WAITER Maryam ou No cme us Giovanna Hinojosa MD OPHTH TOMOGRAPHY Final Resu lt * TRANSTHORACIC ECHO (TTE) COMPLETE W DOPPLER/CF W CONTRAST (05/15/2024 12:30 PM WAITER) Anatomical Region Laterality Modality Ultrasound 05/15/2024 11:3 9 AM WAITER Narrative 05/19/2024 3:51 PM WAITER [facility] [address] [place] [address] Transthoracic Echocardiographic Report Patient Name: KRISTEN BOURGEOIS R : 1950 (73y 7m) Gender: F Study Date: 05/15/2024 11:39:28 AM Ht(Inch): 66 Wt(Lb): 250 BSA: 2.3 Medical Practice Manager: PATRICIO Bee Location: [facility] Order Provider: ANGIE AVITIA Heart Rate: 68 BMI: 40.35 BP: 100/54 Quality: The study images were of technically good quality. Ref Provider: ANGIE AVITIA PROCEDURES: Echocardiographic Report: ([id number], [id number]) Transthoracic complete echo with strain imaging and [...] By: Angie Avitia MD 05/19/2024 3:50:54 PM WAITER Electronically Signed By: Angie Avitia MD 05/19/2024 3:50:54 PM WAITER Procedure Note Angie Avitia MD - 05/19/2024 [facility] [address] [place] [address] Transthoracic Echocardiographic Report Patient Name: KRISTEN BOURGEOIS R : 1950 (73y 7m) Gender: F Study Date: 05/15/2024 11:39:28 AM Ht(Inch): 66 Wt(Lb): 250 BSA: 2.3 Medical Practice Manager: PATRICIO Bee Location: [facility] Order Provider:ANGIE AVITIA Heart Rate: 68 BMI: 40.35 BP: 100/54 Quality: The study images were oftechnically good quality. Ref Provider: ANGIE AVITIA PROCEDURES: Echocardiographic Report: ([id number]) Transthoracic complete echo withstrain imaging and contrast, [...] LA Length 2C 4.61 cm MV Decel Xqkp806.04 msec [ 104.00 - 258.00 ] LA [...] By: Angie Avitia MD 05/19/2024 3:50:54 PM WAITER Electronically Signed By: Angie Avitia MD 05/19/2024 3:50:54 PM WAITER Angie Avitia MD ECHO PROCEDURES Final Result * Screening Mammogram (07/04/2016 7:41 PM CDT) Anatomical Region Laterality Modality Breast N/A Mammography 07/04/2016 7:41 PM CDT Narrative 07/04/2016 7:41 PM CDT ALEN CAREY M.D. FINAL REPORT ACC# Date Time Exam [id number] Jul 04, 2016 14:41:00 [facility] [place] [id number] Mast Scr unilat w/MELANI R Technologist(s): Chapis Coelho; ; EXAMINATION: Mammogram Technique: Right Breast Digital Breast Tomosynthesis, Unilateral C-view 2D Screening mammogram. Views obtained: right craniocaudal and right mediolateral oblique. Computer Aided Detection was performed. Mammogram Findings: The present examination has been compared to prior imaging studies performed at [facility]. [facility] on 02/23/2010, 04/08/2010 and 04/19/2010, and at [facility] on 07/15/2015. There are scattered areas [...] CAREY M.D. on Jul 07 2016 1:44P [id number] Procedure Note Miscellaneous, Notinfile / Provider, MD Dave - 08/18/2016 ALEN CAREY M.D. FINAL REPORT ACC# Date Time Exam [id number] Jul 04, 2016 14:41:00 [facility] [place] [id number] Mast Scr unilat w/MELANI R Technologist(s): Chapis Coelho; ; EXAMINATION: Mammogram Technique: Right Breast Digital Breast Tomosynthesis, Unilateral C-view 2DScreening mammogram. Views obtained: right craniocaudal and right mediolateral oblique. Computer Aided Detection was performed. Mammogram Findings: The present examination has been compared to prior imaging studies performed at [facility]. [facility] on 02/23/2010, 04/08/2010 and 04/19/2010, and at [facility] on 07/15/2015. There are scattered areas [...] CAREY M.D. on Jul 07 2016 1:44P [id number] us Not In File Miscellaneous IMG MAMMO [...] mL/min/1.73m2 *Relative to young adult level If -[place] Citizen multiply value by 1.16. Estimated glomerular filtration [...] CDT Kim Rivera MD LAB BLOOD ORDERABLES [facility] al Result AL BJWCH [id number] [facility]. [place] [address] * (ABNORMAL) Serum lipid panel (09/09/2015 11:42 [...] ORDERABLES Jessika l Result Performing Organization Address City/State/[facility] Co de Phone Number HISTORICAL RESULTS * COLONOSCOPY REPORT (07/30/2015) Anatomical Region Laterality Modality Other Narrative 07/30/2015 Ordered by an unspecified provider. Historical Provider GI PROCEDURE ORDERABLES F inal Result from Last 3 Months or Most Recently Relevant to Health Maintenance Insurance [facility] MEDICARE ADVANTAGE [facility] MEDICARE Address: [address] [address] [place] [address] [facility] DUAL COMPLETE [id number] [facility] MEDICARE Address: [address] [place] [address] [facility] DUAL COMPLETE [id number] [facility] MEDICARE Address: [place] [id number] [facility] DUAL COMPLETE [id number] [facility] MEDICARE Address: [place] [address] Care Teams Mathematical Engineer Relationship Specialty Start Date End Date Rossana Navarro NP [address] [place] [address] PCP - General Nurse Practitioner 04/09/24 Kalee Slaughter, OT Occupational Therapist Occupational Therapy 12/23/19 Chhaya Hernandez, OT Occupational Therapist Occupational Therapy 12/31/19 Kim Carmen, LAVELL Speech Language Pathologist Speech Therapy 12/31/19 Jenny Rice, OT Occupational Therapist Occupational Therapy 01/13/20 Noemí Francis, OT Occupational Therapist Occupational Therapy 01/16/20 Rossana Reid OT Occupational Therapist Occupational Therapy 01/22/20
--- OUTSIDE RECORDS SUMMARY | 2024-06-24 21:53 | XMS_ITS | Continuity of Care Document ---
Author Organization [facility] Address [address] [place] [address] Phone Care Team Providers Care Materials Planner Name Role Phone Bennett Vee Unavailable Unavailable [...] Date Provider Providers Copied on Encounter [facility], [address] [place] [address], [id number], [place] tel:[phone] [facility] Pain in right kneePain in left knee 2 Nanda Sapp er[address] [place] [address], [place], [place], [id number] , [place]. tel:[phone] Office/outpa tient visit,est, mod [facility], [address] [place] [address], [place], [place], [id number], [place] tel:[phone] [facility] bilat knees (chief complaint) Pain in left kneePain in right kneeBilateral primary osteoarthritis of knee 2 Nanda Sapp er. [address] [place] [address], [id number] , [place]. tel:[phone] Referring Provider: Bennett Zhang, [address] [place] [address], [place], [address]. tel:[phone] [facility], [address] [place] [address], [place], [place], [id number], [place] tel:[phone] [facility] Nondisp fx of 5th metatarsal bone, r ft, 7thD 3201 7 Jonh Arizmendi [address] [place] [address], [place], [place], [id number] , [place]. tel:[phone] Referring Provider: Anisa Aj, [address] [place] [address], [place], [address]. tel:[phone] [facility], [address] [place] [address], [id number], [place] tel:[phone] [facility] Follow Up of right foot (chief complaint) Nondisp fx of 5th metatarsal bone, r ft, 7thD 8-201 7 Jonh Arizmendi [address] [facility], [address], [place], [place], [id number] , [place]. tel: [phone] Referring Provider: Anisa Fultonal, [facility] [facility] [address], [place], [address]. tel:[phone] Office/outpa tient visit,new, [facility], [address], [place], [place], [id number], [place] [phone] [facility] right foot (chief complaint) Pain in right footNondisp fx of 5th metatarsal bone, r ft, 7thDLocalized edemaContusion of right foot, subsequent encounterType 2 diabetes mellitus without complications Sep-0 7 Jonh Arizmendi [address] [facility], [address], [place], [place], [id number] , [place]. tel: [phone] Referring Provider: Anisa Aj, [address] [place] [address] [address], [place], [address]. tel:[phone] Family History Family Member Type Diagnosis Age At Onset Father Problem (finding) Cancer, unknown Mother Problem (finding) Cancer, unknown Payers Payer name Insurance type Covered alliance party ID Authoriza tion(s) [facility] Dual Medicare CI [id number] Medicaid MEDICAID Social History Type Description Quantity [...] ordered Referral Referred To: Yoli Millan MD [facility]
10th Floor [place], [place], [phone] Ordered: Referrals: Allopathic & Osteopathic Physicians : Anesthesiology. Yoli Millan MD. Location: [facility]. Evaluate and treat ordered Referral Ordered: X-ray [...]
--- OUTSIDE RECORDS SUMMARY | 2024-06-24 21:53 | XMS_ITS | Clinical Summary ---
Author Organization [facility] Address [address] [place] [address] Care Team Providers Care Supply Cataloguer Name Role Phone Dequan Uribe MD Primary Care Provider [phone] Source Comments [facility],non-owned Affiliates and Associated Physician Practices is amultiple site organization consisting of ambulatory clinics and hospital sitesin [place], [place], [place] and [place]. This disclosure is being madepursuant to the Care Everywhere program and may not contain all information available regarding this patient. Last updated 17.[facility] Allergies No known active allergies Social History [...] age to complete this topic Care Teams Supply Cataloguer Relationship Specialty Start Date End Date Dequan Uribe MD [address] [facility], [address] PCP - General 11/21/07
--- OUTSIDE RECORDS SUMMARY | 2024-06-24 21:53 | XMS_ITS | Clinical Summary ---
Author Organization [facility] Address [address] [place] [address] Care Team Providers Care Accounts Receivable Coordinator Name Role Phone Kalee Slaughter OT Unavailable Unavailable Chhaya Hernandez OT Unavailable UnavailKim Hatch TEXTILE COLORIST DYER Unavailable UnavailJenny Glez OT Unavailable Noemí Deal OT Unavailable UnavailRossana Ni OT Unavailable Unavailable Rossana Navarro NUTRITIONAL ASSISTANT Primary Care Pro vider Allergies Active Allergy [...] Status incobotulinumtoxinA (XEOMIN) 100 unit injection 270 UnitsIndications:[facility] [place] [place] spasticity 270 Units IM Once for [...] Pro. Assessment & Plan (04/15/2020 11:50 AM WELCOME DESK AGENT): Recommend corneal consult. Dr Faustin examined today also and recommended ena drops (gtts) ou ( tid-qid) Subjective vision disturbance, bilateral 021 Assessment & Plan (07/21/2020 10:59 AM CDT): Ct care with Dr Pro and Dr Ramírez. Assessment & Plan (04/15/2020 11:27 AM WELCOME DESK AGENT): Discussed findings. Recommend corneal consult 1st, but pt reports letters look fragmented ever since stroke. May need neuro-op consult if no improvement (NI) after corneal eval/tx. Pseudophakia of both eyes 04/15/2020 Assessment & Plan (07/21/2020 10:59 AM CDT): Stable. Monitor. Assessment & Plan (04/15/2020 11:26 AM WELCOME DESK AGENT): Stable. Monitor. Glaucoma suspect of both eyes 04/15/2020 Assessment & Plan (07/21/2020 10:59 AM CDT): Order Orozco visual field (HVF) and OCT, Re-eval 6 mos Assessment & Plan (04/15/2020 11:39 AM WELCOME DESK AGENT): Schedule Orozco visual field (HVF), repeat intraocular [...] will help decrease pressure and skin irritation. 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, this limits her recovery and has made [...] Department Care Team Description 05/19/2024 Results Follow-Up [facility] Cardiology [facility] Office [facility] [address] [place] [phone] Angie Avitia MD 05/16/2024 10:00 AM WELCOME DESK AGENT Office Visit [facility] Ophthalmology [address] [facility] 6th [place] [address] Giovanna Hinojosa MD Fuchs' corneal dystrophy of both eyes (Primary Dx); Pseudophakia of both eyes; Cornea transplant recipient; Early dry stage nonexudative age-related macular degeneration of both eyes 05/16/2024 Telephone [facility] Cardiology [facility] 8th [place] [address] [place] [phone] Kristen Cabrera 05/15/2024 11:30 AM WELCOME DESK AGENT Ancillary Procedure [facility] [address] [facility] [address] [place] [phone] Pulmonary embolism, unspecified chronicity, unspecified pulmonary embolism type, unspecified whether acute cor pulmonale present (HCC) 05/09/2024 11:30 AM WELCOME DESK AGENT Office Visit [facility] Cardiology [address] [facility] Office Building [address] [place] [address] Angie Avitia MD Other pulmonary embolism without acute cor pulmonale, unspecified chronicity (HCC) (Primary Dx); DVT (deep venous thrombosis) (HCC); Hyperlipidemia, unspecified hyperlipidemia type; Pulmonary embolism, unspecified chronicity, unspecified pulmonary embolism type, unspecified whether acute cor pulmonale present (HCC) 04/29/2024 Telephone [facility] Cardiology [address] [facility] 8th [place] [address] [place] [phone] Gauri Manuel 04/22/2024 Telephone [facility] Ophthalmology [address] [place] [address] Giovanna Hinojosa MD new pt scheduled from [...] on file Legal Sex Female 12:45 AM WELCOME DESK AGENT Gender Identity Not on file Sexual Orientation [...] Comments Blood Pressure 108/74 05/09/2024 11:30 AM WELCOME DESK AGENT Pulse 62 05/09/2024 11:30 AM WELCOME DESK AGENT Temperature 35.4 C (95.7 F) 07/28/2021 12:43 PM CDT Respiratory Rate 17 07/19/2021 1:53 PM CDT Oxygen Saturation 96% 05/09/2024 11:30 AM WELCOME DESK AGENT Inhaled Oxygen Concentration - - Weight 113.4 kg (250 lb) 05/09/2024 11:30 AM WELCOME DESK AGENT Height 167.6 cm (5' 6 ) 05/09/2024 11:30 AM WELCOME DESK AGENT Body Mass Index 40.35 05/09/2024 11:30 AM WELCOME DESK AGENT Plan of Treatment Health Maintenance Due Date [...] - BOTH EYES Routine 05/16/2024 11:37 AM WELCOME DESK AGENT Fuchs' corneal dystrophy of both eyes Early dry stage nonexudative age-related macular degeneration of both eyes TRANSTHORACIC ECHO (TTE) COMPLETE W DOPPLER/CF W CONTRAST Routine 05/15/2024 12:30 PM WELCOME DESK AGENT Pulmonary embolism, unspecified chronicity, unspecified pulmonary embolism [...] OU - Both Eyes (05/16/2024 11:37 AM WELCOME DESK AGENT) Anatomical Region Laterality Modality Head Optical Coherenc e Tomography Narrative 05/16/2024 11:37 AM WELCOME DESK AGENT Maryam ou No cme us Giovanna Hinojosa MD OPHTH TOMOGRAPHY Final Resu lt * TRANSTHORACIC ECHO (TTE) COMPLETE W DOPPLER/CF W CONTRAST (05/15/2024 12:30 PM WELCOME DESK AGENT) Anatomical Region Laterality Modality Ultrasound 05/15/2024 11:3 9 AM WELCOME DESK AGENT Narrative 05/19/2024 3:51 PM WELCOME DESK AGENT [facility] Cardiac Diagnostic Lab [address], [address] [place] [address] Transthoracic Echocardiographic Report Patient Name: KRISTEN BOURGEOIS R : 1950 (73y 7m) Gender: F Study Date: 05/15/2024 11:39:28 AM Ht(Inch): 66 Wt(Lb): 250 BSA: 2.3 Abattoir Supervisor: PATRICIO Bee Location: [facility] Order Provider: ANGIE AVITIA Heart Rate: 68 BMI: 40.35 BP: 100/54 Quality: The study images were of technically good quality. Ref Provider: ANGIE AVITIA PROCEDURES: Echocardiographic Report: ([id number], [id number]) Transthoracic complete echo with strain imaging and [...] By: Angie Avitia MD 05/19/2024 3:50:54 PM WELCOME DESK AGENT Electronically Signed By: Angie Avitia MD 05/19/2024 3:50:54 PM WELCOME DESK AGENT Procedure Note Angie Avitia MD - 05/19/2024 [facility] Cardiac Diagnostic Lab [address] [place] [address] Transthoracic Echocardiographic Report Patient Name: KRISTEN BOURGEOIS R : 1950 (73y 7m) Gender: F Study Date: 05/15/2024 11:39:28 AM Ht(Inch): 66 Wt(Lb): 250 BSA: 2.3 Abattoir Supervisor: PATRICIO Bee Location: [facility] Order Provider:ANGIE AVITIA Heart Rate: 68 BMI: 40.35 BP: 100/54 Quality: The study images were oftechnically good quality. Ref Provider: ANGIE AVITIA PROCEDURES: Echocardiographic Report: ([id number], [id number]) Transthoracic complete echo withstrain imaging and contrast, [...] LA Length 2C 4.61 cm MV Decel Mqrp037.04 msec [ 104.00 - 258.00 ] LA [...] By: Angie Avitia MD 05/19/2024 3:50:54 PM WELCOME DESK AGENT Electronically Signed By: Angie Avitia MD 05/19/2024 3:50:54 PM WELCOME DESK AGENT us Angie Avitia MD ECHO PROCEDURES Final Result * Screening Mammogram (07/04/2016 7:41 PM CDT) Anatomical Region Laterality Modality Breast N/A Mammography 07/04/2016 7:41 PM CDT Narrative 07/04/2016 7:41 PM CDT LAEN CAREY M.D. FINAL REPORT ACC# Date Time Exam [id number] Jul 04, 2016 14:41:00 [facility] [id number] Mast Scr unilat w/MELANI R Technologist(s): Chapis Coelho; ; EXAMINATION: Mammogram Technique: Right Breast Digital Breast Tomosynthesis, Unilateral C-view 2D Screening mammogram. Views obtained: right craniocaudal and right mediolateral oblique. Computer Aided Detection was performed. Mammogram Findings: The present examination has been compared to prior imaging studies performed at [facility] on 02/23/2010, 04/08/2010 and 04/19/2010, and at [facility] on 07/15/2015. There are scattered [...] CAREY M.D. on Jul 07 2016 1:44P [id number] Procedure Note Miscellaneous, Notinfile / Provider, Dave, - 08/18/2016 ALEN CAREY M.D. FINAL REPORT ACC# Date Time Exam [id number] Jul 04, 2016 14:41:00 [facility] [id number] Mast Scr unilat w/MELANI R Technologist(s): Chapis Coelho; ; EXAMINATION: Mammogram Technique: Right Breast Digital Breast Tomosynthesis, Unilateral C-view 2DScreening mammogram. Views obtained: right craniocaudal and right mediolateral oblique. Computer Aided Detection was performed. Mammogram Findings: The present examination has been compared to prior imaging studies performed at [facility]. [facility] on 02/23/2010, 04/08/2010 and 04/19/2010, and at [facility] on 07/15/2015. There are scattered [...] CAREY M.D. on Jul 07 2016 1:44P [id number] us Not In File Miscellaneous IMG MAMMO [...] mL/min/1.73m2 *Relative to young adult level If -[place] multiply value by 1.16. Estimated glomerular filtration [...] BLOOD ORDERABLES Fin al Result AL [facility] [address] [facility]. Department [place] [address] * (ABNORMAL) Serum lipid panel (09/09/2015 11:42 [...] Most Recently Relevant to Health Maintenance Insurance [facility] MEDICARE ADVANTAGE [facility] DUAL [facility] [id number] [facility] DUAL COMPLETE [id number] [facility] DUAL [facility] [id number] Care Teams Accounts Receivable Coordinator Relationship Specialty Start Date End Date Rossana Navarro NP [address] [place] [address] PCP - General Nurse Practitioner 04/09/24 Kalee Slaughter, OT Occupational Therapist Occupational Therapy 12/23/19 Chhaya Hernandez, OT Occupational Therapist Occupational Therapy 12/31/19 Kim Carmen, TEXTILE COLORIST DYER Speech Language Pathologist Speech Therapy 12/31/19 Jenny Rice, OT Occupational Therapist Occupational Therapy 01/13/20 Noemí Francis, OT Occupational Therapist Occupational Therapy 01/16/20 Rossana Reid OT Occupational Therapist Occupational Therapy 01/22/20
--- NOTE | 2024-06-24 22:07 | ED_ITS ---
HPI - Extremity Problem General Chief complaint: Extremity Problem,Nontraumatic Stated complaint: not able to move right knee Time Seen by Provider: 06/24/24 21:33 History of Present Illness HPI Narrative: 73-year-old female with a past medical history including prior CVA with right- sided deficits and contractures at baseline. She normally ambulates with the assistance of a cane. She also has a history of epilepsy from childhood but does not take antiepileptic medications for this. History of DVT and PE on Xarelto. Patient presents to the emergency department today as she is having worsening pain in her right knee and difficulty ambulating. She went to her primary care provider today and got x-ray images and was referred to potential orthopedic doctor outpatient for try car part mental arthritis. Patient has been having worsening ambulation over last few days. Her caregiver who is her friend that she lives with states that she has been falling frequently at home but not having any seizures or seizure activity. No recent falls according to the patient herself. She is awake alert oriented, has no evidence of trauma. Denies any fevers, chills, worsening pain. Pain at rest. She has chronic contractures and sensory changes in her right side from her previous stroke. She states that it hurts to get in out of the car and her knee bothers her when she puts weight on it. She had to have multiple people assist her into and out of the car today and her friend has difficulty with her shoulder and not able to take care of her at home at this time. Related Data Allergies Allergy/AdvReac Type Severity Reaction Status Date / Time Penicillins Allergy Verified 10/05/12 14:09 Sulfa (Sulfonamide Allergy Verified 10/05/12 14:09 Antibiotics) Review of Systems 2 Review of Systems: As reviewed above in HPI Exam 2 Narrative: GENERAL: Elderly, frail, obese, not any distress, sitting in wheelchair HEAD: [Normocephalic, atraumatic.] EYES: [PERRLA and EOMI.] ENT: Nares clear, no rhinorrhea or epistaxis. Mucous membranes moist. NECK: Supple. CHEST: [Clear to auscultation. No respiratory distress.] HEART: [Regular rate and rhythm]. No murmur heard. [Normal peripheral pulses.] ABDOMEN: [Soft, nondistended], [nontender], [No rigidity or guarding] EXTREMITIES: Chronic enlargement of the right lower extremity compared to the left, previous surgical scars on her knee. Tenderness of palpation with varus stress testing of the right knee but no instability. Negative Di's test. No patellar tenderness, no appreciable effusion. No palpable cords. Chronic contracture of the right ankle pain and right upper extremity SKIN: Warm, dry, no rash. NEURO: Right side upper and lower extremity deficits right upper worse than lower, chronic. No facial asymmetry. No left-sided deficits. Alert and oriented [x3.] PSYCH: [Normal mood and affect.] Course Vital Signs Vital signs: Vital Signs Temperature 36.3 C L 06/24/24 20:30 Pulse Rate 73 06/24/24 20:30 Respiratory Rate 15 06/24/24 20:30 Blood Pressure 108/82 06/24/24 20:30 Pulse Oximetry 99 06/24/24 20:30 Oxygen Delivery Room Air 06/24/24 20:30 Temperature 36.3 C L 06/24/24 20:30 Pulse Rate 67 06/25/24 00:37 Respiratory Rate 19 06/25/24 00:37 Blood Pressure 113/42 L 06/25/24 00:37 Pulse Oximetry 100 06/25/24 00:37 Oxygen Delivery Room Air 06/24/24 20:30 MDM - Extremity (Nontraumatic) MDM Narrative Medical decision making narrative: 73-year-old female with a history of prior stroke with residual right-sided deficits lower extremity worse than right upper extremity. History of DVT and PE on daily Xarelto. History of epilepsy from childhood not on any antiepileptic medications. Patient presents today with right knee pain and worsening ambulation. Symptoms going on for few days, went to her doctor this morning and got x-rays and refer to orthopedics. Patient has had significant difficulties walking throughout the day worsening with activity. She lives with her friend who is present at bedside. States that they were not able to take care of her given her debility and now on able to walk even with a walker or cane. Patient states she is having pain when she tries to ambulate and pain is localized to the medial aspect of the right knee. No new injuries. She has fallen multiple times over last few months. No head trauma. She has chronic contractures of right arm and right leg, no new sensory deficits or motor deficits, able to hold extensor mechanisms of the right leg. Varus stress testing shows pain in the medial compartment the right knee but no laxity. X- rays were obtained with appearance of degenerative disease but no acute injuries. Previous screws from fracture identified. We ordered CT images of the knee and head as well as basic laboratory studies. Family felt that she needs to be admitted for potential rehab at retirement placement based on her worsening debility and acute on chronic knee pain. Patient was given a dose of oxycodone for pain control as well as Tylenol. Patient's laboratory studies show a slight leukocytosis of 12.8, appears hemoconcentrated she has an elevated hemoglobin as well. No signs of active infection on her examination. She is afebrile. Normal vital signs. Normal platelet count. Electrolytes are unremarkable. Creatinine 1.03. Normal glucose. CT of the head shows no acute intracranial findings. CT of the knee shows significant degenerative disease without any fracture. No periprostatic fracture. There is density within the medial collateral ligament redemonstrated which is in the area of patient's pain. Awaiting hospitalist discussion for possible admission for PT, OT evaluation and potential rehab versus retirement placement. Spoke to the hospitalist Dr. Savage who accepted the patient to to a hospital bed for PT and OT evaluation. Consult placed for PT OT and care coordination. As needed pain medications were ordered and patient and family were comfortable and agreeable to the plan. Lab Data 06/24/24 22:17 06/24/24 22:17 Labs: Lab Results 06/24/24 Range/Units 22:17 WBC 12.8 H (4.5-10.0) K/mm3 RBC 5.30 (4.2-5.4) M/mm3 Hgb 16.5 H (12.0-15.0) g/dL Hct 49.9 H (37.0-47.0) % MCV 94.2 (80-100) fl MCH 31.1 (26-34) pg MCHC 33.1 (32-36) g/dl RDW 13.8 (11.5-14.5) % Plt Count 358 (150-375) k/mm3 MPV 9.9 (7.4-10.4) fl Immature Gran % (Auto) 0.3 (0-0.5) % Neut % (Auto) 56.5 (45.5-73.1) % Lymph % (Auto) 35.4 (18.3-44.2) % [place] % (Auto) 5.4 (2.6-8.5) % Eos % (Auto) 1.9 (0-4.4) % Baso % (Auto) 0.5 (0.2-1.2) % Lymph # (Auto) 4.52 H (0.9-3.2) K/mm3 [place] # (Auto) 0.7 H (0.1-0.6) K/mm3 Eos # (Auto) 0.2 (0-0.3) K/mm3 Baso # (Auto) 0.1 (0.0-0.1) K/mm3 Abs Immat Gran (auto) 0.04 H (0.00-0.031) K/mm3 Absolute Neuts (auto) 7.2 H (1.3-6.7) K/mm3 Absolute Nucleated RBC 0.000 (0.0-0.012) K/mm3 Nucleated RBC % 0.0 (0.0-0.2) % PT 22.1 H (11.1-14.7) Seconds INR 1.9 APTT 34.9 (22.3-36.8) Seconds Sodium 140 (137-145) mmol/L Potassium 4.1 (3.4-5.0) mmol/L Chloride 102 (98-107) mmol/L Carbon Dioxide 25 (22-30) mmol/L Anion Gap 13 H (4-12) mmol/L BUN 22 H (7-17) mg/dL Creatinine 1.03 H (0.7-1.0) mg/dL Estim Creat Clear Calc 56 ml/min Estimated GFR 53 L (59 - ) Glucose 133 H (65-110) mg/dL Calcium 10.1 (8.4-10.2) mg/dL Discharge Plan Discharge Clinical Impression: Degenerative arthritis of right knee, History of cardioembolic cerebrovascular accident (CVA), Difficulty walking Patient Disposition: Still a Patient Condition: Stable Patient Language: Uruguayan Follow-up/Referrals: UNKNOWN,DOCTOR [Primary Care Provider] - Time of Disposition: 00:49
--- NOTE | 2024-06-24 22:19 | PC.NURSE ---
pt assisted to bathroom with 3 staff members, barely able to bear any weight on her L leg.
[2024-06-24 22:24] LABS: Basophils Absolute Auto 0.1 K/mm3 (0.0-0.1); Basophils Percent Auto 0.5 % (0.2-1.2); Eosinophils Absolute Auto 0.2 K/mm3 (0-0.3); Eosinophils Percent Auto 1.9 % (0-4.4); Hematocrit 49.9 % (37.0-47.0); Hemoglobin 16.5 g/dL (12.0-15.0); Immature Granulocyte Absolute 0.04 K/mm3 (0.00-0.031); Immature Granulocyte Percent A 0.3 % (0-0.5); Lymphocytes Absolute Auto 4.52 K/mm3 (0.9-3.2); Lymphocytes Percent Auto 35.4 % (18.3-44.2); Mean Corpuscular HGB Conc 33.1 g/dl (32-36); Mean Corpuscular Hemoglobin 31.1 pg (26-34); Mean Corpuscular Volume 94.2 fl (80-100); Mean Platelet Volume 9.9 fl (7.4-10.4); Monocytes Absolute Auto 0.7 K/mm3 (0.1-0.6); Monocytes Percent Auto 5.4 % (2.6-8.5); Neutrophils Absolute Auto 7.2 K/mm3 (1.3-6.7); Neutrophils Percent Auto 56.5 % (45.5-73.1); Platelet Count Result 358 k/mm3 (150-375); Red Cell Distribution Width 13.8 % (11.5-14.5); White Blood Count 12.8 K/mm3 (4.5-10.0)
[2024-06-24 22:36] LABS: Anion Gap 13 mmol/L (4-12); Blood Urea Nitrogen 22 mg/dL (7-17); Calcium 10.1 mg/dL (8.4-10.2); Carbon Dioxide 25 mmol/L (22-30); Chloride 102 mmol/L (98-107); Estimated CRCL calculation 56 ml/min; Estimated Glomerular Filt Rate 53; Glucose 133 mg/dL (65-110); Potassium 4.1 mmol/L (3.4-5.0); Sodium 140 mmol/L (137-145)
[2024-06-24 22:37] LABS: INR 1.9; Prothrombin Time 22.1 Seconds (11.1-14.7)
[2024-06-24 22:38] LABS: Partial Thromboplastin Time 34.9 Seconds (22.3-36.8)
[2024-06-24] MEDS: ACETAMINOPHEN 500 MG TABLET 1000 MG PO (23:27)
[2024-06-25 00:37] VITALS: BP 113/42; PULSE 67; RESP 19; O2SAT 100
--- NOTE | 2024-06-25 00:37 | PC.NURSE ---
This RN asked to get pt into a hospital gown. Pt refused stating that she wants to leave her own clothes on.
--- NOTE | 2024-06-25 00:56 | PC.NURSE ---
ON 06/25/2024 AT 0056, THIS OPERATING SYSTEM PROGRAMMER CALLED TAVON Nelson RN - CLUB ROOM ATTENDANT TO REQUEST A MED-SURGICAL BED FOR THIS PT. HOUSE SUP ALSO MADE AWARE THAT PT IS REFUSING TO GET INTO A HOSPITAL GOWN AT THIS TIME.
--- NOTE | 2024-06-25 01:27 | PC.NURSE ---
This RN was informed of pt bed assignment @ 4330
[2024-06-25 02:12] VITALS: BMI 39.4
--- NOTE | 2024-06-25 02:13 | ADMGEN ---
This patient, Kristen Benoit, was admitted to Medical Room 346-01. Patient/family oriented to hospital policies and general routines including ID bracelet, bed and alarms, visiting hours, pain management, procedures, bathroom and other care routines, personal items, smoking policy, room service/diet, and visiting hours. Information on how to activate the Rapid Response Team has been discussed. Patient/Family are encouraged to report perceived risks to care and to ask questions if they do not understand what they are told or what they should do.
[2024-06-25 03:00] VITALS: BP 112/61; PULSE 72; RESP 16; TEMP 36.1; O2SAT 94
[2024-06-25 06:00] VITALS: BP 121/52; PULSE 73; RESP 16; TEMP 36.7; O2SAT 94
--- NOTE | 2024-06-25 11:30 | PM.IMHP ---
H&P: HPI History of Present Illness Date/Time: 06/25/24 11:30 Chief Complaint: Right knee pain Narrative: Patient with history of CVA status post right-sided deficit, history of DVT and PE on Xarelto, history of seizure not on medication presented with right knee pain. Patient notes she was doing fine using cane to ambulate around. Yesterday started to have right knee pain and swelling. The pain is getting worse with activity been getting better with rest. Patient denies any recent fall or injury. He decided to come to the ER for further management, PT OT and possible placement. In the ER x-ray showed degenerative disease no acute fracture. CT of the knee showed degenerative. Patient was admitted for further management Review of Systems Review of Systems: All systems reviewed & are unremarkable except as noted in HPI and below Cardiovascular: Cardiovascular: Reports no additional cardiovascular complaints Respiratory: Respiratory: Reports no additional respiratory complaints Gastrointestinal: Gastrointestinal: Reports no additional gastrointestinal complaints Genitourinary: Genitourinary: Reports no additional female genitourinary complaints [facility] Family History Family History (Updated 06/25/24 @ 02:19 by Chhaya Flores RN) Sibling Asthma Grandparent Diabetes mellitus Social History Social History Smoking status: Never smoker Alcohol intake: current Drinks per week: 7 Substance use: never Do You Feel Safe in your Home?: Yes Lack of Transportation: No Lack of Food: Never True Current Housing: I Have Housing Concerned About Future Housing: No Difficulty Paying Gas/Electric Bills: No Difficulty Paying for Meds: No Currently Unemployed: No Education: Master's Degree or Higher Difficulty w/ Childcare or Family Care: No Spiritual care concerns: No Meds Home Medications and Allergies Home Medications ?Medication ?Instructions ?Recorded ?Confirmed ?Type acetaminophen 650 mg 1,000 mg PO Q8H PRN pain 06/25/24 06/25/24 History tablet,extended release (8 Hour Pain Reliever) baclofen 10 mg tablet 10 mg PO .BI PRN spasms 06/25/24 06/25/24 History duloxetine 60 mg capsule,delayed 60 mg PO DAILY 06/25/24 06/25/24 History release (Cymbalta) fluorometholone 0.1 % eye 1 drp LEFT EYE DAILY 06/25/24 06/25/24 History drops,suspension glucosamin 375 mg-chond 300 2 cap PO DAILY 06/25/24 06/25/24 History mg-collagen 50 mg-hyaluronic acid 2 mg cap rivaroxaban 20 mg tablet (Xarelto) 20 mg PO DAILY 06/25/24 06/25/24 History solifenacin 5 mg tablet 5 mg PO DAILY 06/25/24 06/25/24 History Allergies Allergy/AdvReac Type Severity Reaction Status Date / Time Penicillins Allergy Verified 10/05/12 14:09 Sulfa (Sulfonamide Allergy Verified 10/05/12 14:09 Antibiotics) Vital Signs Vital Signs - 24 hr 06/24/24 20:30 06/25/24 00:37 06/25/24 03:00 Temperature 97.4 F L 97.0 F L Pulse Rate 73 67 72 Respiratory Rate 15 19 16 Blood Pressure 108/82 113/42 L 112/61 Pulse Oximetry 99 100 94 Oxygen Delivery Room Air 06/25/24 06:00 Temperature 98.1 F Pulse Rate 73 Respiratory Rate 16 Blood Pressure 121/52 L Pulse Oximetry 94 Oxygen Delivery Exam Const: General: cooperative, comfortable and no acute distress HENMT: Head: normal to inspection and normocephalic Eyes: General: appearance normal, both eyes and all related structures Neck: Neck: normal visual inspection and full ROM Chest: Chest palpation & inspection: normal inspection of the chest and normal palpation of entire chest wall Resp: Effort & Inspection: normal respiratory effort Cardio: Rate: regular rate Rhythm: regular rhythm Heart sounds: S1 normal heart sound present and S2 normal heart sound present GI: Inspection: normal to inspection Auscultation: normal bowel sounds Neuro: General: oriented to person, oriented to place, oriented to time, patient oriented x3 and moves all extremities Other: decreased ROM of R side upper and lower ext Extrem: General: normal to inspection Other: decreased ROM of R knee H&P: Results Labs Labs: Short CBC 06/24/24 Range/Units 22:17 WBC 12.8 H (4.5-10.0) K/mm3 Hgb 16.5 H (12.0-15.0) g/dL Hct 49.9 H (37.0-47.0) % Plt Count 358 (150-375) k/mm3 BMP 06/24/24 22:17 Sodium 140 Potassium 4.1 Chloride 102 Carbon Dioxide 25 BUN 22 H Creatinine 1.03 H Glucose 133 H Calcium 10.1 Assessment and Plan Assessment and plan (1) Knee pain: Code(s): M25.569 - Pain in unspecified knee Status: Acute Assessment and Plan: R Knee pain possible arthritis Ct Showed:Significant degenerative disease, without acute fracture deformity Continue pain medication PT OT Possible placement Follow-up orthopedic clinic as outpatient (2) Difficulty walking: Code(s): R26.2 - Difficulty in walking, not elsewhere classified Status: Acute Assessment and Plan: PT OT Pain medications as needed (3) History of cardioembolic cerebrovascular accident (CVA): Onset Date: Unknown Code(s): Z86.73 - Personal history of transient ischemic attack (TIA), and cerebral infarction without residual deficits Status: Acute Assessment and Plan: Continue Xarelto Continue to monitor (4) Degenerative arthritis of right knee: Code(s): M17.11 - Unilateral primary osteoarthritis, right knee Status: Acute Plan As #1 Quality VTE Prophylaxis VTE prophylaxis: pharmacologic ordered
[2024-06-25] MEDS: SOLIFENACIN 5 MG TABLET PO (12:32)
[2024-06-25] MEDS: RIVAROXABAN 20 MG TABLET PO (12:32)
[2024-06-25] MEDS: FLUOROMETHOLONE 0.1% OP SUSP 5 ML BTL 1 DROP LEFT EYE (12:47)
--- NOTE | 2024-06-25 13:34 | PHAR ---
HOME MED CYMBALTA (DULOXETINE HCL) DR 60 MG CAPSULE, TAKE ONE CAPSULE BY MOUTH DAILY, VERIFIED IN PHARMACY 06/25/24 - [place] Color:?Opaque Blue ,?Opaque Green Imprint:??Sera [id number] 60mg Imprint Code Description:?The Capsule is imprinted with Sera [id number] on the cap and 60mg on the body. Form:?Oral Capsule, Delayed Release
[2024-06-25] MEDS: ACETAMINOPHEN 500 MG TABLET 1000 MG PO ×2 (13:54→22:53)
[2024-06-25] MEDS: DULOXETINE HCL 60 MG PO (13:54)
[2024-06-25 14:00] VITALS: BP 134/60; PULSE 76; RESP 16; TEMP 36.8; O2SAT 95
[2024-06-25 20:20] VITALS: BP 121/48; PULSE 62; RESP 17; TEMP 36.8; O2SAT 96
[2024-06-26 02:10] VITALS: O2SAT 93
[2024-06-26 05:26] VITALS: BP 119/64; PULSE 68; RESP 18; TEMP 36.6; O2SAT 95
[2024-06-26 05:32] LABS: Hematocrit 46.3 % (37.0-47.0); Hemoglobin 14.5 g/dL (12.0-15.0); Mean Corpuscular HGB Conc 31.3 g/dl (32-36); Mean Corpuscular Hemoglobin 30.9 pg (26-34); Mean Corpuscular Volume 98.5 fl (80-100); Mean Platelet Volume 10.1 fl (7.4-10.4); Platelet Count Result 279 k/mm3 (150-375); Red Cell Distribution Width 13.7 % (11.5-14.5); White Blood Count 8.9 K/mm3 (4.5-10.0)
[2024-06-26 05:43] LABS: Anion Gap 10 mmol/L (4-12); Blood Urea Nitrogen 20 mg/dL (7-17); Calcium 8.9 mg/dL (8.4-10.2); Carbon Dioxide 21 mmol/L (22-30); Chloride 105 mmol/L (98-107); Estimated CRCL calculation 58 ml/min; Estimated Glomerular Filt Rate 56; Glucose 135 mg/dL (65-110); Potassium 4.1 mmol/L (3.4-5.0); Sodium 136 mmol/L (137-145)
[2024-06-26] MEDS: ACETAMINOPHEN 500 MG TABLET 1000 MG PO ×3 (05:47→23:19)
[2024-06-26] MEDS: FLUOROMETHOLONE 0.1% OP SUSP 5 ML BTL 1 DROP LEFT EYE (09:29)
[2024-06-26] MEDS: RIVAROXABAN 20 MG TABLET PO (09:29)
[2024-06-26] MEDS: SOLIFENACIN 5 MG TABLET PO (09:29)
[2024-06-26] MEDS: DULOXETINE HCL 60 MG PO (09:29)
--- NOTE | 2024-06-26 13:51 | P.PNIM_ITS ---
Progress Note: A&P Assessment and Plan (1) Knee pain: Code(s): M25.569 - Pain in unspecified knee Status: Acute Assessment and Plan: R Knee pain possible arthritis Ct Showed:Significant degenerative disease, without acute fracture deformity Continue pain medication PT OT needs SNF Follow-up orthopedic clinic as outpatient (2) Difficulty walking: Code(s): R26.2 - Difficulty in walking, not elsewhere classified Status: Acute Assessment and Plan: PT OT Pain medications as needed (3) History of cardioembolic cerebrovascular accident (CVA): Onset Date: Unknown Code(s): Z86.73 - Personal history of transient ischemic attack (TIA), and cerebral infarction without residual deficits Status: Acute Assessment and Plan: Continue Xarelto Continue to monitor (4) Degenerative arthritis of right knee: Code(s): M17.11 - Unilateral primary osteoarthritis, right knee Status: Acute Assessment and Plan: as above Plan As #1 Subjective Date/time seen: 06/26/24 13:51 Interval history: per HPi:Right knee pain Narrative: Patient with history of CVA status post right-sided deficit, history of DVT and PE on Xarelto, history of seizure not on medication presented with right knee pain. Patient notes she was doing fine using cane to ambulate around. Yesterday started to have right knee pain and swelling. The pain is getting wor se with activity been getting better with rest. Patient denies any recent fall or injury. He decided to come to the ER for further management, PT OT and possible placement. In the ER x-ray showed degenerative disease no acute fracture. CT of the knee showed degenerative. Patient was admitted for further management 06/26/24 Patient was seen examined at bedside. His knee is getting better. Knee is not red warm or swollen. No sign of infection PT recommended rehab Discharge plan pending placement Review of Systems Review of Systems: All systems reviewed & are unremarkable except as noted in HPI and below Cardiovascular: Cardiovascular: Reports no additional cardiovascular complaints Respiratory: Respiratory: Reports no additional respiratory complaints Gastrointestinal: Gastrointestinal: Reports no additional gastrointestinal complaints Genitourinary: Genitourinary: Reports no additional female genitourinary complaints Exam Const: General: cooperative, comfortable and no acute distress Orientation/consciousness: oriented to person, oriented to place, oriented to time and patient oriented x3 HENMT: Head: normal to inspection and normocephalic Eyes: General: appearance normal, both eyes and all related structures Neck: Neck: normal visual inspection and full ROM Chest: Chest palpation & inspection: normal inspection of the chest and normal palpation of entire chest wall Resp: Effort & Inspection: normal respiratory effort Cardio: Rate: regular rate Rhythm: regular rhythm Heart sounds: S1 normal heart sound present and S2 normal heart sound present GI: Inspection: normal to inspection Auscultation: normal bowel sounds Neuro: General: oriented to person, oriented to place, oriented to time, patient oriented x3 and moves all extremities Other: decreased ROM of R side upper and lower ext Extrem: General: normal to inspection Other: decreased ROM of R knee Objective Data Vital Signs Vital Signs: Vital Signs - 24 hr 06/25/24 14:00 06/25/24 20:20 06/26/24 02:10 Temperature 98.3 F 98.2 F Pulse Rate 76 62 Respiratory Rate 16 17 Blood Pressure 134/60 121/48 L Pulse Oximetry 95 96 93 Oxygen Delivery 06/26/24 02:10 06/26/24 05:26 06/26/24 09:26 Temperature 97.8 F Pulse Rate 68 Respiratory Rate 18 Blood Pressure 119/64 Pulse Oximetry 93 95 Oxygen Delivery Room Air Room Air 06/26/24 10:44 Temperature Pulse Rate Respiratory Rate Blood Pressure Pulse Oximetry Oxygen Delivery Room Air Intake/Output Intake/Output: Intake & Output 06/23/24 06/24/24 06/25/24 06/26/24 23:59 23:59 23:59 23:59 Intake Total 837 120 Output Total 210 100 Balance 627 20 Meds/Results Medications: Active Medications Generic Name Dose Route Start Last Admin Trade Name Cucoq PRN Reason Stop Dose Admin Acetaminophen 650 mg 06/25/24 00:45 Acetaminophen 325 Mg Tablet PO Q4H PRN Mild Pain (1-3) or Fever Acetaminophen 1,000 mg 06/26/24 06:00 06/26/24 05:47 Acetaminophen 500 Mg Tablet PO 1,000 mg Q8HR CELSO Administration Baclofen 10 mg 06/25/24 11:18 Baclofen 10 Mg Tablet PO BID PRN spasms Duloxetine HCl 60 mg 06/25/24 13:40 06/26/24 09:29 Home Med Duloxetine Hcl 60 Mg Capsule.Dr PO 60 mg DAILY CELSO Administration Fluorometholone 1 drop 06/25/24 11:40 06/26/24 09:29 Fluorometholone 0.1% Op Susp 5 Ml Btl LEFT EYE 1 drop DAILY CELSO Administration Morphine Sulfate 2 mg 06/25/24 00:45 Morphine Sulfate (*Crx) 2 Mg/Ml Inj IV PUSH Q2H PRN Pain Rated 7-10 Ondansetron HCl 4 mg 06/25/24 00:45 Ondansetron Inj 4 Mg/2 Ml Vial IV PUSH Q4H PRN Nausea Oxycodone HCl 2.5 mg 06/24/24 23:20 Oxycodone Hcl (*Crx) 2.5 Mg Tab Ir PO Q4H PRN Pain Rated 4-10 Rivaroxaban 20 mg 06/25/24 11:40 06/26/24 09:29 Rivaroxaban 20 Mg Tablet PO 20 mg DAILY CELSO Administration Solifenacin 5 mg 06/25/24 11:40 06/26/24 09:29 Solifenacin 5 Mg Tablet PO 5 mg DAILY CELSO Administration Radiology Results: ITS Impressions Knee X-Ray 06/24/24 21:20 IMPRESSION: Degenerative disease, without acute findings, as detailed above. Head CT 06/24/24 22:50 Impression: No acute intracranial hemorrhage or suspicious mass effect. Knee CT 06/24/24 22:54 IMPRESSION: Significant degenerative disease, without acute fracture deformity, as detailed above. Labs Labs: Laboratory Results - last 24 hr 06/26/24 05:19 WBC 8.9 RBC 4.70 Hgb 14.5 Hct 46.3 MCV 98.5 MCH 30.9 MCHC 31.3 L RDW 13.7 Plt Count 279 MPV 10.1 Sodium 136 L Potassium 4.1 Chloride 105 Carbon Dioxide 21 L Anion Gap 10 BUN 20 H Creatinine 0.97 Estim Creat Clear Calc 58 Estimated GFR 56 L Glucose 135 H Calcium 8.9 Quality VTE Prophylaxis VTE prophylaxis: pharmacologic ordered
[2024-06-26 14:26] VITALS: BP 124/59; PULSE 69; RESP 16; TEMP 36.4; O2SAT 98
[2024-06-26 15:27] VITALS: O2SAT 97
--- NOTE | 2024-06-26 18:39 | PC.NURSE ---
On 06/26/24, the student, Christina Vieyra, provided care and completed [facility] documentation on this patient. I have reviewed the student's documentation and agree with the findings.
[2024-06-26 21:00] VITALS: O2SAT 94
[2024-06-26 22:00] VITALS: BP 135/52; PULSE 63; RESP 16; TEMP 36.8; O2SAT 94
[2024-06-26] MEDS: BACLOFEN 10 MG TABLET PO (23:20)
[2024-06-27 01:23] VITALS: O2SAT 94
[2024-06-27] MEDS: ACETAMINOPHEN 500 MG TABLET 1000 MG PO ×2 (05:42→13:57)
[2024-06-27 06:00] VITALS: BP 121/46; PULSE 58; RESP 18; TEMP 36.2; O2SAT 96
[2024-06-27] MEDS: SOLIFENACIN 5 MG TABLET PO (08:19)
[2024-06-27] MEDS: DULOXETINE HCL 60 MG PO (08:19)
[2024-06-27] MEDS: RIVAROXABAN 20 MG TABLET PO (08:19)
[2024-06-27] MEDS: FLUOROMETHOLONE 0.1% OP SUSP 5 ML BTL 1 DROP LEFT EYE (08:20)
--- NOTE | 2024-06-27 13:15 | PM.IMPN ---
Progress Note: A&P Assessment and Plan (1) Knee pain: Qualifiers: Chronicity: acute Laterality: right Qualified Code(s): M25.561 - Pain in right knee Code(s): M25.569 - Pain in unspecified knee Status: Acute Assessment and Plan: R Knee pain possible arthritis Ct Showed:Significant degenerative disease, without acute fracture deformity Continue pain medication PT OT needs SNF Follow-up orthopedic clinic as outpatient (2) Difficulty walking: Code(s): R26.2 - Difficulty in walking, not elsewhere classified Status: Acute Assessment and Plan: PT OT Pain medications as needed (3) History of cardioembolic cerebrovascular accident (CVA): Onset Date: Unknown Code(s): Z86.73 - Personal history of transient ischemic attack (TIA), and cerebral infarction without residual deficits Status: Acute Assessment and Plan: Continue Xarelto Continue to monitor (4) Degenerative arthritis of right knee: Qualifiers: Osteoarthritis type: unspecified Qualified Code(s): M17.11 - Unilateral primary osteoarthritis, right knee Code(s): M17.11 - Unilateral primary osteoarthritis, right knee Status: Acute Assessment and Plan: as above Plan As #1 Subjective Date/time seen: 06/27/24 13:15 Interval history: per HPi:Right knee pain Narrative: Patient with history of CVA status post right-sided deficit, history of DVT and PE on Xarelto, history of seizure not on medication presented with right knee pain. Patient notes she was doing fine using cane to ambulate around. Yesterday started to have right knee pain and swelling. The pain is getting worse with activity been getting better with rest. Patient denies any recent fall or injury. He decided to come to the ER for further management, PT OT and possible placement. In the ER x-ray showed degenerative disease no acute fracture. CT of the knee showed degenerative. Patient was admitted for further management 06/26/24 Patient was seen examined at bedside. His knee is getting better. Knee is not red warm or swollen. No sign of infection PT recommended rehab Discharge plan pending placement 06/27/24 Patient was seen and examined at bedside. Denies any chest pain, SOB, abd pain, nausea vomiting. The pain is under control. Pending placement Review of Systems Review of Systems: All systems reviewed & are unremarkable except as noted in HPI and below Cardiovascular: Cardiovascular: Reports no additional cardiovascular complaints Respiratory: Respiratory: Reports no additional respiratory complaints Gastrointestinal: Gastrointestinal: Reports no additional gastrointestinal complaints Genitourinary: Genitourinary: Reports no additional female genitourinary complaints Exam Const: General: cooperative, comfortable and no acute distress Orientation/consciousness: oriented to person, oriented to place, oriented to time and patient oriented x3 HENMT: Head: normal to inspection and normocephalic Eyes: General: appearance normal, both eyes and all related structures Neck: Neck: normal visual inspection and full ROM Chest: Chest palpation & inspection: normal inspection of the chest and normal palpation of entire chest wall Resp: Effort & Inspection: normal respiratory effort Cardio: Rate: regular rate Rhythm: regular rhythm Heart sounds: S1 normal heart sound present and S2 normal heart sound present GI: Inspection: normal to inspection Auscultation: normal bowel sounds Neuro: General: oriented to person, oriented to place, oriented to time, patient oriented x3 and moves all extremities Other: decreased ROM of R side upper and lower ext Extrem: General: normal to inspection Other: decreased ROM of R knee Objective Data Vital Signs Vital Signs: Vital Signs - 24 hr 06/26/24 14:26 06/26/24 15:27 06/26/24 20:00 Temperature 97.6 F Pulse Rate 69 Respiratory Rate 16 Blood Pressure 124/59 L Pulse Oximetry 98 97 Oxygen Delivery Room Air Room Air 06/26/24 21:00 06/26/24 22:00 06/27/24 01:23 Temperature 98.2 F Pulse Rate 63 Respiratory Rate 16 Blood Pressure 135/52 L Pulse Oximetry 94 94 94 Oxygen Delivery Room Air Room Air 06/27/24 06:00 06/27/24 08:20 06/27/24 10:33 Temperature 97.2 F L Pulse Rate 58 L Respiratory Rate 18 Blood Pressure 121/46 L Pulse Oximetry 96 Oxygen Delivery Room Air Room Air Intake/Output Intake/Output: Intake & Output 06/24/24 06/25/24 06/26/24 06/27/24 23:59 23:59 23:59 23:59 Intake Total 062 541 2405 Output Total 342 022 3838 Balance 507 700 -737 Meds/Results Medications: Active Medications Generic Name Dose Route Start Last Admin Trade Name Freq PRN Reason Stop Dose Admin Acetaminophen 650 mg 06/25/24 00:45 Acetaminophen 325 Mg Tablet PO Q4H PRN Mild Pain (1-3) or Fever Acetaminophen 1,000 mg 06/26/24 06:00 06/27/24 05:42 Acetaminophen 500 Mg Tablet PO 1,000 mg Q8HR CELSO Administration Baclofen 10 mg 06/25/24 11:18 06/26/24 23:20 Baclofen 10 Mg Tablet PO 10 mg BID PRN Administration spasms Duloxetine HCl 60 mg 06/25/24 13:40 06/27/24 08:19 Home Med Duloxetine Hcl 60 Mg Capsule.Dr PO 60 mg DAILY CELSO Administration Fluorometholone 1 drop 06/25/24 11:40 06/27/24 08:20 Fluorometholone 0.1% Op Susp 5 Ml Btl LEFT EYE 1 drop DAILY CELSO Administration Morphine Sulfate 2 mg 06/25/24 00:45 Morphine Sulfate (*Crx) 2 Mg/Ml Inj IV PUSH Q2H PRN Pain Rated 7-10 Ondansetron HCl 4 mg 06/25/24 00:45 Ondansetron Inj 4 Mg/2 Ml Vial IV PUSH Q4H PRN Nausea Oxycodone HCl 2.5 mg 06/24/24 23:20 Oxycodone Hcl (*Crx) 2.5 Mg Tab Ir PO Q4H PRN Pain Rated 4-10 Rivaroxaban 20 mg 06/25/24 11:40 06/27/24 08:19 Rivaroxaban 20 Mg Tablet PO 20 mg DAILY CELSO Administration Solifenacin 5 mg 06/25/24 11:40 06/27/24 08:19 Solifenacin 5 Mg Tablet PO 5 mg DAILY CELSO Administration Radiology Results: ITS Impressions Knee X-Ray 06/24/24 21:20 IMPRESSION: Degenerative disease, without acute findings, as detailed above. Head CT 06/24/24 22:50 Impression: No acute intracranial hemorrhage or suspicious mass effect. Knee CT 06/24/24 22:54 IMPRESSION: Significant degenerative disease, without acute fracture deformity, as detailed above. Quality VTE Prophylaxis VTE prophylaxis: pharmacologic ordered
[2024-06-27 13:57] VITALS: BP 112/48; PULSE 63; RESP 18; TEMP 36; O2SAT 97
--- NOTE | 2024-06-27 15:25 | PM.DS ---
DS: Admitting Diagnosis Discharge Date 06/27/24 Admitting Diagnosis knee pain DS: Discharge Diagnosis Discharge Diagnosis (1) Knee pain: Qualifiers: Chronicity: acute Laterality: right Qualified Code(s): M25.561 - Pain in right knee Code(s): M25.569 - Pain in unspecified knee Status: Acute Assessment and Plan: R Knee pain possible arthritis Ct Showed:Significant degenerative disease, without acute fracture deformity Continue pain medication PT OT needs [facility] Follow-up orthopedic clinic as outpatient (2) Degenerative arthritis of right knee: Qualifiers: Osteoarthritis type: unspecified Qualified Code(s): M17.11 - Unilateral primary osteoarthritis, right knee Code(s): M17.11 - Unilateral primary osteoarthritis, right knee Status: Acute Assessment and Plan: as above (3) Difficulty walking: Code(s): R26.2 - Difficulty in walking, not elsewhere classified Status: Acute Assessment and Plan: PT OT Pain medications as needed (4) History of cardioembolic cerebrovascular accident (CVA): Onset Date: Unknown Code(s): Z86.73 - Personal history of transient ischemic attack (TIA), and cerebral infarction without residual deficits Status: Acute Assessment and Plan: Continue Xarelto Continue to monitor Plan As #1 DS: Summary Hospital Course Hospital Course: Patient with history of CVA status post right-sided deficit, history of DVT and PE on Xarelto, history of seizure not on medication presented with right knee pain. Patient notes she was doing fine using cane to ambulate around. Yesterday started to have right knee pain and swelling. The pain is getting worse with activity been getting better with rest. Patient denies any recent fall or injury. He decided to come to the ER for further management, PT OT and possible placement. In the ER x-ray showed degenerative disease no acute fracture. CT of the knee showed degenerative. Patient was admitted for further management 06/26/24 . His knee is getting better. Knee is not red warm or swollen. No sign of infection PT recommended rehab Discharge plan pending placement 06/27/24 Patient was seen and examined at bedside. Denies any chest pain, SOB, abd pain, nausea vomiting. The pain is under control. will discharge to the rehab Time Spent with Patient Time attestation: Total time spent providing and/or coordinating discharge services: Time spent: Greater than 30 minutes Exam Const: General: cooperative, comfortable and no acute distress Orientation/consciousness: oriented to person, oriented to place, oriented to time and patient oriented x3 HENMT: Head: normal to inspection and normocephalic Eyes: General: appearance normal, both eyes and all related structures Neck: Neck: normal visual inspection and full ROM Chest: Chest palpation & inspection: normal inspection of the chest and normal palpation of entire chest wall Resp: Effort & Inspection: normal respiratory effort Cardio: Rate: regular rate Rhythm: regular rhythm Heart sounds: S1 normal heart sound present and S2 normal heart sound present GI: Inspection: normal to inspection Auscultation: normal bowel sounds Neuro: General: oriented to person, oriented to place, oriented to time, patient oriented x3 and moves all extremities Other: decreased ROM of R sideupper and lower ext Extrem: General: normal to inspection Other: decreased ROM of R knee Discharge Plan Discharge Discharging Clinician: Kwame Mariscal Patient Disposition: SNF Activity: as tolerated Diet: heart healthy Discharge Instructions: follow with PCP in one week follow with orthopedic clinic in 2-4 weeks Patient Instructions: Rivaroxaban (By mouth) Patient Language: Slovak Stand Alone Forms: General Discharge Information Follow-up/Referrals: Rossana Navarro [Other] Fidel Booth MD [Physician] - 2 Weeks Discharge Medications: Continued baclofen 10 mg tablet 10 mg PO .BI PRN (Reason: spasms) fluorometholone 0.1 % drops,suspension 1 drp LEFT EYE DAILY duloxetine [Cymbalta] 60 mg capsule,delayed release(DR/EC) 60 mg PO DAILY solifenacin 5 mg tablet 5 mg PO DAILY Xarelto 20 mg tablet 20 mg PO DAILY [id number] mg capsule 2 cap PO DAILY acetaminophen [8 Hour Pain Reliever] 650 mg tablet extended release 1,000 mg PO TID Patient Comments: patient takes at 0900, 1600, and 0000 Date of admission: 06/25/24 00:45 Primary Care Provider: Rossana Navarro Admitting Provider: Magdalena Zamora Attending physician on admission: Magdalena Zamora Condition: Stable Quality VTE Prophylaxis VTE prophylaxis: pharmacologic ordered
[2024-06-27 16:27] LABS: SARS-CoV-2 RNA PCR Negative (Negative)
== END 2024-06-27 18:02 ==
LOC: ANHED 06-25 00:50 → ANH3MED 06-25 01:05
PROVIDERS: Admitting Provider Internal Medicine; Emergency Provider Student in an Organized Health Care Education/Training Program; Visit Provider Internal Medicine
DX: M25.561 Pain in right knee (principal); M17.11 Unilateral primary osteoarthritis, right knee; R26.2 Difficulty in walking, not elsewhere classified; G40.909 Epilepsy, unspecified, not intractable, without status epilepticus; Z11.52 Encounter for screening for COVID-19; Z79.01 Long term (current) use of anticoagulants; Z79.899 Other long term (current) drug therapy; Z86.711 Personal history of pulmonary embolism; Z86.718 Personal history of other venous thrombosis and embolism; Z86.73 Personal history of transient ischemic attack (TIA), and cerebral infarction without residual deficits
CPT/HCPCS: 36415; 70450; 73562; 73700; 80048; 85025; 85027; 85610; 85730; 87635; 96374; 96375; 97110; 97116; 97161; 97166; 99285; A9270; G0378